=== PATIENT | male | born 1950 | race Caucasian/White ===

== ENCOUNTER → 2017-06-05 11:11 | Outpatient (CLI) | payer MEDICARE, SELFPAY ==
[2017-06-05 14:27] LABS: AST(SGOT) 19 U/L (15-37); Alanine Aminotransfer ALT/SGPT 32 U/L (16-61); Albumin, Serum 3.8 g/dL (3.2-5.0); Alkaline Phosphatase 61 U/L (45-117); Anion Gap 8 (5-15); BUN 23 mg/dL (7-18); BUN/Creat Ratio 23.5 RATIO (10-20); Bilirubin, Direct 0.11 mg/dL (0.00-0.30); Calcium,Total 9.1 mg/dL (8.5-10.1); Chloride 104 mmol/L (98-107); Cholesterol 100 mg/dL (200); Creatinine, Serum 0.98 mg/dL (0.70-1.30); EST Glomerular Filtration Rate 81 mL/min (>60); Est Glom Filt Rate - Afr Amer 98 mL/min (>60); Globulin 3.3 g/dL (2.2-4.2); Glucose 105 mg/dL (74-106); High Density Lipoprotein 40 mg/dL; Potassium 4.3 mmol/L (3.5-5.1); Protein, Total 7.1 g/dL (6.4-8.2); Sodium Level 140 mmol/L (136-145); Triglycerides 105 mg/dL; Very Low Density Lipoprotein 21 mg/dL (5-40)
[2017-06-05 14:39] LABS: Microalbumin,Random Urine 19.5 mg/L (NO RANGE EST.); Microalbumin:Creatinine Ratio 17.3 mg/g CRE (<30 mg/g CRE)
== END ==
PROVIDERS: Family Provider Family Medicine; PCP Family Medicine; Visit Provider Family Medicine
DX: I10 Essential (primary) hypertension (principal); E11.9 Type 2 diabetes mellitus without complications
CPT/HCPCS: 36415; 80048; 80061; 80076; 82043; 82570

== ENCOUNTER → 2017-08-12 15:56 | Outpatient (CLI) | payer MEDICARE, SELFPAY ==
[2017-08-12 17:50] LABS: Absolute Lymphocyte Count 1.86 X10^3/ul (0.83-4.51); Absolute Neutrophil Count 2.6 X10^3/uL (2.0-7.7); Basophil# 0.03 X10^3/uL; Basophil% 0.6 % (0-1); Eosinophil# 0.17 X10^3/uL; Eosinophils% 3.3 % (0-5); Hematocrit 31.2 % (40-54); Hemoglobin 9.5 g/dl (13.0-16.5); Lymphocyte # 1.86 X10^3/ul (4.0); Lymphocyte % 36.6 % (19-41); Mean Corp Hgb Conc 30.4 g/gl (32-36); Mean Corpuscular Hgb 25.8 pg (27.0-32.0); Mean Corpuscular Volume 84.8 fL (80-94); Mean Platelet Vol. 10.1 fl (6.2-12.0); Monocyte# 0.39 X10^3/uL; Monocyte% 7.7 % (0-10); Neutrophil # 2.61 X10^3/uL (2.7-7.7); Neutrophil % 51.4 % (47-70); POSITIVE COUNT NO; POSITIVE DIFFERENTIAL NO; POSITIVE MORPHOLOGY NO; Platelet Count 396 K/mm3 (150-450); RBC Distribution Width SD 49.1 fl (35.1-43.9); Red Blood Count 3.68 M/mm3 (4.6-6.2); White Blood Count 5.1 K/mm3 (4.4-11.0)
[2017-08-12 18:01] LABS: ALB/GLOB Ratio 0.9 RATIO (0.9-2.4); AST(SGOT) 14 U/L (15-37); Alanine Aminotransfer ALT/SGPT 28 U/L (16-61); Albumin, Serum 3.1 g/dL (3.2-5.0); Alkaline Phosphatase 85 U/L (45-117); Anion Gap 8 (5-15); BUN 17 mg/dL (7-18); BUN/Creat Ratio 19.7 RATIO (10-20); Calcium,Total 8.7 mg/dL (8.5-10.1); Chloride 106 mmol/L (98-107); Creatinine, Serum 0.86 mg/dL (0.70-1.30); EST Glomerular Filtration Rate 94 mL/min (>60); Est Glom Filt Rate - Afr Amer 113 mL/min (>60); Globulin 3.6 g/dL (2.2-4.2); Glucose 151 mg/dL (74-106); Potassium 4.1 mmol/L (3.5-5.1); Protein, Total 6.7 g/dL (6.4-8.2); Sodium Level 141 mmol/L (136-145)
== END ==
PROVIDERS: Family Provider Family Medicine; PCP Family Medicine; Visit Provider Family Medicine
DX: I95.1 Orthostatic hypotension (principal)
CPT/HCPCS: 36415; 80053; 85025

== ENCOUNTER → 2017-08-20 11:11 | Outpatient (CLI) | payer MEDICARE, SELFPAY ==
[2017-08-20 12:46] LABS: Hematocrit 33.8 % (40-54); Hemoglobin 10.5 g/dl (13.0-16.5); Mean Corp Hgb Conc 31.1 g/gl (32-36); Mean Corpuscular Hgb 26.1 pg (27.0-32.0); Mean Corpuscular Volume 84.1 fL (80-94); Mean Platelet Vol. 10.3 fl (6.2-12.0); Platelet Count 273 K/mm3 (150-450); RBC Distribution Width CV 16.1 % (11.6-14.6); RBC Distribution Width SD 49.7 fl (35.1-43.9); Red Blood Count 4.02 M/mm3 (4.6-6.2); White Blood Count 4.6 K/mm3 (4.4-11.0)
[2017-08-20 12:49] LABS: Scan Indicated on CBC? Y/N NO
== END ==
PROVIDERS: Family Provider Family Medicine; PCP Family Medicine; Visit Provider Family Medicine
DX: D64.9 Anemia, unspecified (principal)
CPT/HCPCS: 36415; 85027

== ENCOUNTER → 2017-10-02 11:57 | Outpatient (CLI) | payer MEDICARE, SELFPAY ==
[2017-10-02 14:12] LABS: Absolute Lymphocyte Count 1.83 X10^3/ul (0.83-4.51); Absolute Neutrophil Count 3.1 X10^3/uL (2.0-7.7); Basophil# 0.02 X10^3/uL; Basophil% 0.3 % (0-1); Eosinophil# 0.24 X10^3/uL; Eosinophils% 4.2 % (0-5); Hematocrit 39.9 % (40-54); Lymphocyte # 1.83 X10^3/ul (4.0); Lymphocyte % 31.9 % (19-41); Mean Corp Hgb Conc 32.6 g/gl (32-36); Mean Corpuscular Hgb 26.7 pg (27.0-32.0); Mean Corpuscular Volume 82.1 fL (80-94); Mean Platelet Vol. 10.7 fl (6.2-12.0); Monocyte# 0.58 X10^3/uL; Monocyte% 10.1 % (0-10); Neutrophil # 3.05 X10^3/uL (2.7-7.7); Neutrophil % 53.3 % (47-70); Platelet Count 276 K/mm3 (150-450); RBC Distribution Width CV 16.5 % (11.6-14.6); RBC Distribution Width SD 49.6 fl (35.1-43.9); Red Blood Count 4.86 M/mm3 (4.6-6.2); White Blood Count 5.7 K/mm3 (4.4-11.0)
[2017-10-02 14:19] LABS: POSITIVE COUNT NO; POSITIVE DIFFERENTIAL NO; POSITIVE MORPHOLOGY NO
== END ==
PROVIDERS: Family Provider Family Medicine; PCP Family Medicine; Visit Provider Family Medicine
DX: D64.9 Anemia, unspecified (principal)
CPT/HCPCS: 36415; 85025

== ENCOUNTER → 2018-01-22 15:41 | Outpatient (CLI) | payer MEDICARE, SELFPAY ==
[2018-01-22 17:44] LABS: Anion Gap 7 (5-15); BUN 18 mg/dL (7-18); BUN/Creat Ratio 22.3 RATIO (10-20); Calcium,Total 8.9 mg/dL (8.5-10.1); Chloride 108 mmol/L (98-107); Creatinine, Serum 0.81 mg/dL (0.70-1.30); EST Glomerular Filtration Rate 101 mL/min (>60); Est Glom Filt Rate - Afr Amer 122 mL/min (>60); Glucose 105 mg/dL (74-106); Potassium 4.3 mmol/L (3.5-5.1); Sodium Level 141 mmol/L (136-145)
[2018-01-22 17:53] LABS: Absolute Lymphocyte Count 1.87 X10^3/ul (0.83-4.51); Absolute Neutrophil Count 3.5 X10^3/uL (2.0-7.7); Basophil# 0.02 X10^3/uL; Basophil% 0.3 % (0-1); Eosinophil# 0.41 X10^3/uL; Eosinophils% 6.5 % (0-5); Hematocrit 41.5 % (40-54); Hemoglobin 13.5 g/dl (13.0-16.5); Lymphocyte # 1.87 X10^3/ul (4.0); Lymphocyte % 29.5 % (19-41); Mean Corp Hgb Conc 32.5 g/gl (32-36); Mean Corpuscular Volume 86.1 fL (80-94); Mean Platelet Vol. 10.3 fl (6.2-12.0); Monocyte# 0.52 X10^3/uL; Monocyte% 8.2 % (0-10); Neutrophil # 3.51 X10^3/uL (2.7-7.7); Neutrophil % 55.3 % (47-70); Platelet Count 254 K/mm3 (150-450); RBC Distribution Width SD 48.1 fl (35.1-43.9); Red Blood Count 4.82 M/mm3 (4.6-6.2); White Blood Count 6.3 K/mm3 (4.4-11.0)
[2018-01-22 18:03] LABS: POSITIVE COUNT NO; POSITIVE DIFFERENTIAL NO; POSITIVE MORPHOLOGY NO
== END ==
PROVIDERS: Family Provider Family Medicine; PCP Family Medicine; Visit Provider Family Medicine
DX: E11.9 Type 2 diabetes mellitus without complications (principal); D64.9 Anemia, unspecified
CPT/HCPCS: 36415; 80048; 85025

== ENCOUNTER → 2018-06-04 | Outpatient (CLI) | payer MEDICARE, SELFPAY ==
[2018-06-04 14:15] LABS: Absolute Lymphocyte Count 2.11 X10^3/ul (0.83-4.51); Absolute Neutrophil Count 3.6 X10^3/uL (2.0-7.7); Basophil# 0.03 X10^3/uL; Basophil% 0.5 % (0-1); Eosinophil# 0.23 X10^3/uL; Eosinophils% 3.5 % (0-5); Hematocrit 41.9 % (40-54); Hemoglobin 13.9 g/dl (13.0-16.5); Lymphocyte # 2.11 X10^3/ul (4.0); Lymphocyte % 31.8 % (19-41); Mean Corp Hgb Conc 33.2 g/gl (32-36); Mean Corpuscular Hgb 28.4 pg (27.0-32.0); Mean Corpuscular Volume 85.7 fL (80-94); Mean Platelet Vol. 10.4 fl (6.2-12.0); Monocyte# 0.64 X10^3/uL; Monocyte% 9.7 % (0-10); Neutrophil # 3.61 X10^3/uL (2.7-7.7); Neutrophil % 54.3 % (47-70); Platelet Count 272 K/mm3 (150-450); RBC Distribution Width CV 14.6 % (11.6-14.6); RBC Distribution Width SD 45.5 fl (35.1-43.9); Red Blood Count 4.89 M/mm3 (4.6-6.2); White Blood Count 6.6 K/mm3 (4.4-11.0)
[2018-06-04 14:16] LABS: POSITIVE COUNT NO; POSITIVE DIFFERENTIAL NO; POSITIVE MORPHOLOGY NO
[2018-06-04 14:24] LABS: Anion Gap 7 (5-15); BUN 20 mg/dL (7-18); BUN/Creat Ratio 23.6 RATIO (10-20); Calcium,Total 9.3 mg/dL (8.5-10.1); Chloride 109 mmol/L (98-107); Creatinine, Serum 0.85 mg/dL (0.70-1.30); EST Glomerular Filtration Rate 96 mL/min (>60); Est Glom Filt Rate - Afr Amer 116 mL/min (>60); Glucose 77 mg/dL (74-106); Potassium 4.3 mmol/L (3.5-5.1); Sodium Level 141 mmol/L (136-145)
== END | disposition home or self-care (01) ==
LOC: MFPLAB 12:19
PROVIDERS: Family Provider Family Medicine; PCP Family Medicine; Referring Provider Family Medicine; Visit Provider Family Medicine
DX: E11.9 Type 2 diabetes mellitus without complications (principal); D64.9 Anemia, unspecified
CPT/HCPCS: 36415; 80048; 85025

== ENCOUNTER → 2018-07-23 | Outpatient (CLI) | payer MEDICARE, SELFPAY ==
[2018-07-23 12:56] LABS: Microalbumin,Random Urine 72.5 mg/L (NO RANGE EST.); Microalbumin:Creatinine Ratio 38.4 mg/g CRE (<30 mg/g CRE)
[2018-07-23 13:11] LABS: Hemoglobin A1c 6.7 % (4.2-6.3)
[2018-07-23 13:22] LABS: AST(SGOT) 14 U/L (15-37); Alanine Aminotransfer ALT/SGPT 25 U/L (16-61); Albumin, Serum 3.5 g/dL (3.2-5.0); Alkaline Phosphatase 78 U/L (45-117); Anion Gap 4 (5-15); BUN 21 mg/dL (7-18); BUN/Creat Ratio 23.4 RATIO (10-20); Calcium,Total 9.1 mg/dL (8.5-10.1); Chloride 106 mmol/L (98-107); Cholesterol 113 mg/dL (200); EST Glomerular Filtration Rate 89 mL/min (>60); Est Glom Filt Rate - Afr Amer 108 mL/min (>60); Globulin 3.2 g/dL (2.2-4.2); Glucose 111 mg/dL (74-106); High Density Lipoprotein 40 mg/dL; Potassium 4.4 mmol/L (3.5-5.1); Protein, Total 6.7 g/dL (6.4-8.2); Sodium Level 139 mmol/L (136-145); Triglycerides 143 mg/dL; Very Low Density Lipoprotein 29 mg/dL (5-40)
== END | disposition home or self-care (01) ==
PROVIDERS: Family Provider Family Medicine; PCP Family Medicine; Referring Provider Family Medicine; Visit Provider Family Medicine
DX: I10 Essential (primary) hypertension (principal); E11.9 Type 2 diabetes mellitus without complications
CPT/HCPCS: 36415; 80048; 80061; 80076; 82043; 82570; 83036

== ENCOUNTER → 2018-08-23 | Outpatient (CLI) | payer MEDICARE, SELFPAY ==
[2018-08-23 08:53] VITALS: BMI 31.6
--- NOTE | 2018-08-23 09:11 | RAD_ITS ---
STUDY: X-RAY - RIGHT ELBOW REASON FOR EXAM: Male, 68 years old. Bump on posterior elbow TECHNIQUE: 3 view(s) of the elbow. COMPARISON: None. FINDINGS: The bones of the elbow are intact and located. Mineralization is normal. Soft tissues are intact. There is no joint effusion. There is minor ossific enthesopathy at the attachment of the triceps. There are calcifications projecting over the joint seen on the frontal view, not visualized on other projections. RAD/Elbow min 3 Views IMPRESSION: No acute osseous injury. Questionable intra-articular loose bodies. Electronically Signed: Rubio Izaguirre, at 17:56 EDT Tel , Service support ,
== END | disposition home or self-care (01) ==
LOC: HPRAD 09:09
PROVIDERS: Family Provider Family Medicine; PCP Family Medicine; Visit Provider Orthopaedic Surgery
DX: R22.9 Localized swelling, mass and lump, unspecified (principal)
CPT/HCPCS: 73080

== ENCOUNTER → 2019-01-21 10:46 | Outpatient (CLI) | payer MEDICARE, SELFPAY ==
[2018-08-23 08:53] VITALS: BMI 31.6
[2019-01-21 12:32] LABS: Anion Gap 6 (5-15); BUN 18 mg/dL (7-18); BUN/Creat Ratio 21.2 RATIO (10-20); Calcium,Total 9.2 mg/dL (8.5-10.1); Chloride 108 mmol/L (98-107); Creatinine, Serum 0.85 mg/dL (0.70-1.30); EST Glomerular Filtration Rate 95 mL/min (>60); Est Glom Filt Rate - Afr Amer 115 mL/min (>60); Glucose 102 mg/dL (74-106); Potassium 4.1 mmol/L (3.5-5.1); Sodium Level 139 mmol/L (136-145)
== END ==
PROVIDERS: Family Provider Family Medicine; PCP Family Medicine; Referring Provider Family Medicine; Visit Provider Family Medicine
DX: E11.9 Type 2 diabetes mellitus without complications (principal)
CPT/HCPCS: 36415; 80048

== ENCOUNTER → 2019-08-12 | Outpatient (CLI) | payer MEDICARE, SELFPAY ==
[2018-08-23 08:53] VITALS: BMI 31.6
[2019-08-12 15:15] LABS: Hemoglobin A1c 6.7 % (3.8-5.6)
[2019-08-12 15:25] LABS: AST(SGOT) 25 U/L (15-37); Alanine Aminotransfer ALT/SGPT 44 U/L (16-61); Albumin, Serum 3.5 g/dL (3.2-5.0); Alkaline Phosphatase 72 U/L (45-117); Anion Gap 6 (5-15); BUN 16 mg/dL (7-18); BUN/Creat Ratio 18.8 RATIO (10-20); Calcium,Total 9.1 mg/dL (8.5-10.1); Chloride 103 mmol/L (98-107); Cholesterol 105 mg/dL (200); Creatinine, Serum 0.85 mg/dL (0.70-1.30); EST Glomerular Filtration Rate 95 mL/min (>60); Est Glom Filt Rate - Afr Amer 115 mL/min (>60); Globulin 3.6 g/dL (2.2-4.2); Glucose 106 mg/dL (74-106); High Density Lipoprotein 41 mg/dL; Protein, Total 7.1 g/dL (6.4-8.2); Sodium Level 137 mmol/L (136-145); Triglycerides 149 mg/dL; Very Low Density Lipoprotein 30 mg/dL (5-40)
[2019-08-12 15:29] LABS: Microalbumin,Random Urine 72.4 mg/L (NO RANGE EST.); Microalbumin:Creatinine Ratio 76.7 mg/g CRE (<30 mg/g CRE)
== END | disposition home or self-care (01) ==
LOC: MFPLAB 11:15
PROVIDERS: PCP Family Medicine; Visit Provider Family Medicine
DX: I10 Essential (primary) hypertension (principal); E11.9 Type 2 diabetes mellitus without complications
CPT/HCPCS: 36415; 80048; 80061; 80076; 82043; 82570; 83036

== ENCOUNTER → 2020-08-27 15:24 | Outpatient (CLI) | payer MEDICARE, SELFPAY ==
[2018-08-23 08:53] VITALS: BMI 31.6
[2020-08-27 18:34] LABS: AST(SGOT) 18 U/L (15-37); Alanine Aminotransfer ALT/SGPT 31 U/L (16-61); Albumin, Serum 3.4 g/dL (3.2-5.0); Alkaline Phosphatase 79 U/L (45-117); Anion Gap 4 (5-15); BUN 22 mg/dL (7-18); BUN/Creat Ratio 24.3 RATIO (10-20); Bilirubin, Direct 0.06 mg/dL (0.00-0.30); Calcium,Total 9.1 mg/dL (8.5-10.1); Chloride 107 mmol/L (98-107); Cholesterol 129 mg/dL (200); EST Glomerular Filtration Rate 88 mL/min (>60); Est Glom Filt Rate - Afr Amer 106 mL/min (>60); Globulin 3.3 g/dL (2.2-4.2); Glucose 154 mg/dL (74-106); High Density Lipoprotein 41 mg/dL; PSA,Total - Annual Screen 3.56 ng/mL (0.00-4.00); Potassium 4.2 mmol/L (3.5-5.1); Protein, Total 6.7 g/dL (6.4-8.2); Sodium Level 138 mmol/L (136-145); Thyroid Stim Hormone (TSH) 1.97 uIU/mL (0.358-3.74); Triglycerides 273 mg/dL; Very Low Density Lipoprotein 55 mg/dL (5-40)
== END ==
PROVIDERS: PCP Family Medicine; Referring Provider Family Medicine; Visit Provider Family Medicine
DX: E11.9 Type 2 diabetes mellitus without complications (principal); N40.0 Benign prostatic hyperplasia without lower urinary tract symptoms; Z12.5 Encounter for screening for malignant neoplasm of prostate
CPT/HCPCS: 36415; 80048; 80061; 80076; 84153; 84443; G0103

== ENCOUNTER → 2021-08-30 | Outpatient (CLI) | payer MEDICARE, SELFPAY ==
[2021-08-30 15:29] LABS: Hemoglobin A1c 9.1 % (3.8-5.6)
[2021-08-30 15:30] LABS: AST(SGOT) 16 U/L (15-37); Alanine Aminotransfer ALT/SGPT 29 U/L (16-61); Albumin, Serum 3.5 g/dL (3.2-5.0); Alkaline Phosphatase 78 U/L (45-117); Anion Gap 5 (5-15); BUN 19 mg/dL (7-18); BUN/Creat Ratio 21.8 RATIO (10-20); Bilirubin, Direct 0.09 mg/dL (0.00-0.30); Calcium,Total 9.4 mg/dL (8.5-10.1); Chloride 105 mmol/L (98-107); Cholesterol 115 mg/dL (200); Creatinine, Serum 0.87 mg/dL (0.70-1.30); EST Glomerular Filtration Rate 91 mL/min (>60); Est Glom Filt Rate - Afr Amer 110 mL/min (>60); Globulin 3.3 g/dL (2.2-4.2); Glucose 197 mg/dL (74-106); High Density Lipoprotein 43 mg/dL; PSA,Total - Annual Screen 3.31 ng/mL (0.00-4.00); Potassium 4.2 mmol/L (3.5-5.1); Protein, Total 6.8 g/dL (6.4-8.2); Sodium Level 137 mmol/L (136-145); Triglycerides 159 mg/dL; Very Low Density Lipoprotein 32 mg/dL (5-40)
== END | disposition home or self-care (01) ==
LOC: MFPLAB 11:57
PROVIDERS: PCP Family Medicine; Referring Provider Family Medicine; Visit Provider Family Medicine
DX: E11.9 Type 2 diabetes mellitus without complications (principal); N40.0 Benign prostatic hyperplasia without lower urinary tract symptoms; Z12.5 Encounter for screening for malignant neoplasm of prostate
CPT/HCPCS: 36415; 80048; 80061; 80076; 83036; 84153; G0103

== ENCOUNTER → 2021-09-16 | Outpatient (CLI) | payer MEDICARE, SELFPAY ==
--- NOTE | 2021-09-16 13:32 | CT_ITS ---
EXAM: CT CHEST, LUNG CANCER SCREENING WITHOUT INTRAVENOUS CONTRAST CLINICAL INDICATION: TOBACCO USE DISORDER TECHNIQUE: Helically acquired images were obtained of the chest without intravenous contrast using low dose (LDCT) lung cancer screening protocol. This CT exam was performed using one or more of the following dose reduction techniques: automated exposure control, adjustment of the mA and/or kV according to patient size, and/or use of iterative reconstruction technique. This report was created using Hash[employer] report generation technology. COMPARISON: Chest radiograph July 08, 2013 FINDINGS: LUNGS AND PLEURAL SPACES: 9 mm right upper lobe pulmonary nodule noted on image 79. Minor linear atelectasis or scarring at the right lung base. Lungs are otherwise clear. No pleural effusion or thickening. No pneumothorax. HEART: Normal. Heart size is normal. No pericardial effusion. No significant coronary artery calcifications. MEDIASTINUM: Normal. No mediastinal or hilar adenopathy. Esophagus is unremarkable. No hiatal hernia. THYROID: Normal. No thyroid lesions. BONES/JOINTS: Normal. No suspicious lytic or blastic abnormality. VASCULATURE: Normal. Thoracic aorta is non-dilated. LYMPH NODES: Normal. No enlarged lymph nodes. CT/Low Dose CT Lung Screening IMPRESSION: 9 mm right upper lobe pulmonary nodule. ACR Lung CT Screening Reporting T Data System (Lung-RADS) score: 4A - Suspicious. Recommend low-dose CT (LDCT) in 3 months or PET/CT for solid components 8 mm or larger in size. Electronically Signed: Darryl Grey MD at 13:43 EDT Reading Location ID and State: [facility] / [place] Tel , Service support ,
== END | disposition home or self-care (01) ==
LOC: CT 13:32
PROVIDERS: PCP Family Medicine; Referring Provider Family Medicine; Visit Provider Family Medicine
DX: Z87.891 Personal history of nicotine dependence (principal)
CPT/HCPCS: 71271

== ENCOUNTER → 2021-09-25 | Outpatient (CLI) | payer MEDICARE, SELFPAY ==
--- NOTE | 2021-09-25 15:45 | PET_ITS ---
EXAMINATION: FDG PET/CT ? INDICATIONS: 71-year-old male with a history of pulmonary nodularity. ? COMPARISON EXAMINATION: CT of the chest report 09/17/21 ? INDEX LESION SIZE SUV INTERPRETATION Right parotid space 10.7 mm 4.5 May warrant further investigation with diagnostic CT of the neck related to the quantitative uptake. ? TECHNIQUE: Following the intravenous administration of 12.2 mCi of F-18 deoxyglucose via the right antecubital fossa, multiplanar image acquisitions of the neck, chest, abdomen and pelvis to the level of the midthigh, obtained at one-hour post radiopharmaceutical administration contemporaneously interpreted with CT chest report dated 09/17/21 reveal: ? SERUM GLUCOSE LEVEL:? 98? HEIGHT:?? 73? WEIGHT:?? 245 ? FINDINGS: ? HEAD/NECK:? An asymmetric increase in glucose metabolism is identified in the right parotid space. The calculated maximum standard uptake value is 4.5. The maximal axial diameter of the metabolic abnormality is 10.7 mm. ? There is normal physiologic symmetric radiopharmaceutical concentration defined in the visualized cerebral cortical and subcortical structures. ? CHEST:? There is no quantitative scintigraphic evidence of abnormal increased glucose metabolism within the context of the bilateral hemithorax pulmonary parenchyma, right and left hemithorax at the pleural interface, mediastinal structures, and left-right thoracic perihilum. ? Pertinent chest CT findings are as follows: A rounded noncalcified density defined in the right posterobasal lung zone is non-glucose avid. Ground glass changes defined in the right lower posteromedial lung zone demonstrate no evidence of increased glucose metabolism. Calcification is defined in the thoracic aorta consistent with activated leukocytes associated with atherosclerotic plaque formation. Coronary calcification is defined. Subcentimeter axillary soft tissue densities are non-glucose avid. ? ABDOMEN/PELVIS:? Normal physiologic distribution of the radiopharmaceutical is identified in the hepatic (3.3) and splenic parenchyma, both renal units, urinary bladder, and visualized intestinal tract. ? Review of CT of the abdomen and pelvis reveals the following: Multiple surgical clips are identified in the right upper-mid abdominal mesentery. Cholelithiasis is defined. Abdominal and pelvic arterial calcification is observed. Colonic diverticulosis is defined without evidence of diverticulitis. Cyst formation is defined in the bilateral kidneys. The prostate gland is prominent in size. Right and left fat containing inguinal hernias are identified. Bilateral inguinal soft tissue with fatty hilus reveals no evidence of increased glucose metabolism. ? SKELETAL:? There is no evidence of abnormal increased glucose concentration noted on inspection of the appendicular and axial skeletal structures. ? PET/PET/CT Tumor Base -Thigh Init IMPRESSION: 1. NEGATIVE EXAMINATION. THERE IS NO DEFINITIVE QUANTITATIVE SCINTIGRAPHIC EVIDENCE OF VIABLE NEOPLASM. 2. The parenchymal density identified in the right posterobasilar lung zone, right lower lobe demonstrates no evidence of increased glucose concentration. 3. Metabolic, morphologic stability may be ensured in the right hemithorax parenchymal abnormality with repeat PET/CT imaging in 3-6 months. 4. The right parotid space metabolic focus may be further investigated with CT of the neck secondary to the quantitative uptake, if clinically indicated. ? Electronic Signature Georgi To D.O. Accurate Quantification of SUVs for this report are calculated using the exclusive mWaterAN Technology. (U.S. Patent No. [id number], [id number] 983). Standardization and correction of the FDG SUV metric via ACCUQUAN technology allow for vendor non-specific objective quantitative examination comparison and optimization of the sensitivity and specificity of the FDG PET-CT examination. Electronically Signed: Georgi To, at 18:52 EDT ,
== END | disposition home or self-care (01) ==
LOC: ONC 15:27
PROVIDERS: PCP Family Medicine; Referring Provider Family Medicine; Visit Provider Family Medicine
DX: R91.8 Other nonspecific abnormal finding of lung field (principal)
CPT/HCPCS: 78815; A9552

== ENCOUNTER → 2021-10-09 | Outpatient (CLI) | payer MEDICARE, SELFPAY ==
--- NOTE | 2021-10-09 13:47 | CT_ITS ---
STUDY: CT SOFT TISSUE NECK WITH CONTRAST REASON FOR EXAM: Male, 71 years old. Area of concern on throat, abnormal PET scan. Attention to the right parotid space. RADIATION DOSAGE (If Supplied By Facility): CTDIvol = ( 20.47 ) mGy, DLP = ( 623.93 ) mGycm TECHNIQUE: The patient was scanned in a multi-detector CT scanner. High resolution transaxial imaging was performed following intravenous administration of IV 100mL Isovue-300. Sagittal and coronal images were reconstructed. Individualized dose optimization techniques were used for this CT. COMPARISON: None. FINDINGS: There is a 1.1 cm x 0.9 cm x 0.8 cm well-defined enhancing nodule in the body of the right parotid gland. A neoplastic process should be ruled out. Normal bilateral space control supervisor spaces. Normal bilateral parapharyngeal spaces. Normal bilateral carotid spaces. Normal bilateral sublingual and submandibular glands and spaces. Normal visualized nasopharynx. Normal retropharyngeal space. Normal perivertebral space. Normal visualized bilateral faucial tonsils. The visualized tongue, tongue base and oropharynx are normal. The visualized cervical lymph nodes (levels I-) are within normal size limits, and maintain normal morphology. There is no demonstrated solid or cystic mass lesion. There is no abnormal contrast enhancement. Normal epiglottis, bilateral vallecula and hypopharynx. The pre-epiglottic and paraglottic adipose spaces are normal. Normal visualized bilateral piriform sinuses, aryepiglottic folds, vocal cords, and arytenoid-cricoid articulations. Normal subglottic trachea. Normal bilateral lobes of the thyroid gland. Normal visualized pulmonary apices. Normal visualized paranasal sinuses. There is multilevel degenerative changes of the cervical spine. CT/Soft Tissue Neck WITH Contrast IMPRESSION: 1.1 cm x 0.9 cm x 0.8 cm well-defined enhancing nodule in the body of the right parotid gland. A neoplastic process should be ruled out. Electronically Signed: Marco Antonio Kasper MD at 15:04 EDT ,
[2021-10-09 14:16] LABS: CREATININE FINGERSTICK < 0.9 mg/dL (0.70-1.30); EGFR FINGERSTICK > 60.0000 mL/min (>60)
== END | disposition home or self-care (01) ==
LOC: CT 13:46
PROVIDERS: PCP Family Medicine; Referring Provider Family Medicine; Visit Provider Family Medicine
DX: R94.8 Abnormal results of function studies of other organs and systems (principal)
CPT/HCPCS: 70491; Q9967; A4216

== ENCOUNTER → 2022-03-13 | Outpatient (CLI) | payer MEDICARE, SELFPAY ==
--- NOTE | 2022-03-13 12:36 | MRI_ITS ---
STUDY: MRI LEFT SHOULDER REASON FOR EXAM: Male, 71 years old. LEFT SHOULDER PAIN TECHNIQUE: Standardized fat and water weighted pulse sequences were obtained in all 3 orthogonal planes. COMPARISON: None. FINDINGS: There is full-thickness tear of the supraspinatus tendon 1.0 cm proximal to the insertion with retraction of 2.4 cm, series 5 images 12/05 through 02/04. Normal infraspinatus tendon. Normal subscapularis tendon. Normal teres minor tendon. There is moderate muscular atrophy of the supraspinatus muscle. Normal infraspinatus muscle. Normal subscapularis muscle. Normal teres minor muscle. Normal glenohumeral articulation. There is moderate effusion. Normal humeral head and visualized proximal humerus. Normal biceps labral complex. Normal intracapsular long biceps tendon. Normal labrum. Normal capsulo- ligamentous complex. Normal rotator interval. There is hypertrophic osteoarthritis of the acromioclavicular articulation with impingement upon the musculotendinous junction of the supraspinatus muscle. There is a Type II morphology (curved), with a neutral orientation. There is moderate fluid distention of the subacromial bursa, consistent with moderate subacromial-subdeltoid bursitis. Normal visualized coracohumeral and coracoacromial ligaments. Normal quadrilateral space. Normal axillary space. Normal deltoid muscle. Normal trapezius muscle. MRI/Upper Ext Joint Only(Routine) IMPRESSION: Rotator cuff tear of the supraspinatus tendon. Acromioclavicular arthrosis with impingement. Joint effusion. Subacromial subdeltoid bursitis Electronically Signed: Chris Nava MD at 8:17 EST ,
== END | disposition home or self-care (01) ==
LOC: MRI 12:29
PROVIDERS: PCP Family Medicine; Visit Provider Student in an Organized Health Care Education/Training Program
DX: M25.512 Pain in left shoulder (principal)
CPT/HCPCS: 73221

== ENCOUNTER → 2022-09-08 | Outpatient (CLI) | payer MEDICARE, SELFPAY ==
[2022-09-08 14:02] LABS: AST(SGOT) 16 U/L (15-37); Alanine Aminotransfer ALT/SGPT 37 U/L (16-61); Albumin, Serum 3.4 g/dL (3.2-5.0); Alkaline Phosphatase 69 U/L (45-117); Anion Gap 4 (5-15); BUN 18 mg/dL (7-18); BUN/Creat Ratio 20.9 RATIO (10-20); Bilirubin, Direct 0.11 mg/dL (0.00-0.30); Calcium,Total 9.1 mg/dL (8.5-10.1); Chloride 106 mmol/L (98-107); Cholesterol 95 mg/dL (200); Creatinine, Serum 0.86 mg/dL (0.70-1.30); EST Glomerular Filtration Rate 93 mL/min (>60); Est Glom Filt Rate - Afr Amer 112 mL/min (>60); Globulin 3.3 g/dL (2.2-4.2); Glucose 97 mg/dL (74-106); High Density Lipoprotein 53 mg/dL; PSA,Total - Annual Screen 3.77 ng/mL (0.00-4.00); Potassium 4.3 mmol/L (3.5-5.1); Protein, Total 6.7 g/dL (6.4-8.2); Sodium Level 139 mmol/L (136-145); Triglycerides 115 mg/dL; Very Low Density Lipoprotein 23 mg/dL (5-40)
== END | disposition home or self-care (01) ==
LOC: MFPLAB 11:35
PROVIDERS: PCP Family Medicine; Visit Provider Family Medicine
DX: E11.9 Type 2 diabetes mellitus without complications (principal); Z12.5 Encounter for screening for malignant neoplasm of prostate
CPT/HCPCS: 36415; 80048; 80061; 80076; 84153; G0103

== ENCOUNTER → 2022-11-17 | Outpatient (CLI) | payer MEDICARE, SELFPAY ==
--- NOTE | 2022-11-17 07:09 | CT_ITS ---
CT BILATERAL LOWER EXTREMITY WITH 3-D IMAGING CLINICAL INDICATION: LEFT HIP [facility] PROTOCOL TECHNIQUE: Axial CT images of the bilateral lower extremity (including bilateral hips and bilateral knees) was performed without IV contrast material, as per [facility] Protocol. Coronal and sagittal reformats were provided. COMPARISON: No relevant prior comparison study available. FINDINGS: Bones: There is moderate to severe degenerative arthrosis of the hip joints bilaterally with joint space narrowing, marginal osteophyte formation, and tiny foci of subchondral cyst formation in the acetabula. There is mild degenerative arthrosis of the sacroiliac joints bilaterally. There is mild tricompartment degenerative arthrosis of the knees bilaterally. Osseous structures are intact without evidence of fracture or dislocation. No lytic or blastic osseous masses. Soft Tissues: The deep soft tissue structures are unremarkable. The superficial soft tissues are unremarkable without evidence of edema, hematoma, or foreign body. There are atherosclerotic calcifications CT/Extremity Lower without Contra IMPRESSION: Moderate to severe degenerative arthrosis of the hip joints bilaterally. Mild degenerative arthrosis of the sacroiliac joints bilaterally. Mild tricompartment degenerative arthrosis of the knees bilaterally. Electronically Signed: Jorge A Mishra MD at 8:13 EDT ,
== END | disposition home or self-care (01) ==
PROVIDERS: PCP Family Medicine; Referring Provider Student in an Organized Health Care Education/Training Program; Visit Provider Student in an Organized Health Care Education/Training Program
DX: M16.12 Unilateral primary osteoarthritis, left hip (principal); M25.552 Pain in left hip
CPT/HCPCS: 73700

== ENCOUNTER 2022-12-04 13:54 | Observation (INO) | payer MEDICARE, SELFPAY ==
--- NOTE | 2022-11-20 12:15 | RAD_ITS ---
INDICATION: PREOP EXAMINATION/TECHNIQUE: X-RAY - XR Chest 2 Views COMPARISON: Prior study dated: 07/08/2013. FINDINGS: LINES/DEVICES: None. LUNGS: Persistent mild elevation of the right diaphragm. Mild stranding/scarring in the lower lungs. No focal infiltrate is seen. No evidence of pleural effusions. MEDIASTINUM AND CARDIOVASCULAR STRUCTURES: Cardiac silhouette not enlarged. Central airways and mediastinal contour are unremarkable. BONES AND SOFT TISSUES: Mild degenerative changes of the thoracic spine. Surgical clips right upper quadrant. RAD/Chest PA and Lateral IMPRESSION: No radiographic evidence of acute cardiopulmonary disease. Electronically Signed: Abraham Christensen MD at 10:00 EDT ,
[2022-11-20 13:28] LABS: Absolute Lymphocyte Count 1.63 X10^3/uL (0.83-4.51); Absolute Neutrophil Count 4.5 X10^3/uL (2.0-7.7); Basophil# 0.05 X10^3/uL; Basophil% 0.7 % (0-1); Eosinophil# 0.18 X10^3/uL; Eosinophils% 2.6 % (0-5); Hematocrit 40.7 % (40-54); Hemoglobin 13.4 g/dL (13.0-16.5); Lymphocyte # 1.63 X10^3/ul (0.83-4.51); Lymphocyte % 23.6 % (19-41); Mean Corp Hgb Conc 32.9 g/dL (32-36); Mean Corpuscular Volume 91.1 fL (80-94); Mean Platelet Vol. 10.1 fl (6.2-12.0); Monocyte# 0.52 X10^3/uL; Monocyte% 7.5 % (0-10); NRBC Flagged by Analyzer 0 % (0-5); Neutrophil % 65.2 % (47-70); Platelet Count 270 K/mm3 (150-450); RBC Distribution Width CV 13.6 % (11.6-14.6); RBC Distribution Width SD 46.3 fl (35.1-43.9); Red Blood Count 4.47 M/mm3 (4.6-6.2); White Blood Count 6.9 K/mm3 (4.4-11.0)
[2022-11-20 13:58] LABS: Albumin, Serum 3.4 g/dL (3.2-5.0); Anion Gap 0 (5-15); BUN 17 mg/dL (7-18); BUN/Creat Ratio 20.9 RATIO (10-20); Calcium,Total 8.8 mg/dL (8.5-10.1); Chloride 107 mmol/L (98-107); Creatinine, Serum 0.81 mg/dL (0.70-1.30); EST Glomerular Filtration Rate 99 mL/min (>60); Est Glom Filt Rate - Afr Amer 119 mL/min (>60); Glucose 123 mg/dL (74-106); Sodium Level 137 mmol/L (136-145)
[2022-11-20 14:05] LABS: Magnesium 2.2 mg/dL (1.6-2.6)
[2022-11-20 14:38] LABS: Hemoglobin A1c 6.5 % (3.8-5.6)
[2022-12-04] VITALS (17 sets, daily range): BP systolic 90–158; BP diastolic 61–93; PULSE 66–87; RESP 16–18; TEMP 36.4–37.2; O2SAT 92–100; BMI 30.2
[2022-12-04] MEDS: Lactated Ringers 1,000 ML 15 ML IV ×3 (08:29→13:08)
[2022-12-04] MEDS: Magnesium 1 GM over 15 mins IV (08:29)
[2022-12-04] MEDS: Gabapentin 600 MG Tablet PO (08:30)
[2022-12-04] MEDS: Acetaminophen 500 MG Tablet 1000 MG PO ×3 (08:30→22:35)
[2022-12-04 08:35] LABS: Bedside Glucose 169 mg/dL (74-106)
[2022-12-04] MEDS: Cefazolin 2 GM in 0.9% Normal Saline (100mL Bag) 100 ML IV (09:11)
[2022-12-04] MEDS: dexAMETHasone 10 MG/ML Vial IV (09:20)
[2022-12-04] MEDS: TXA 1000mg in NS100 100ml (IVPB at Incision) 660 MG IV (09:30)
[2022-12-04] MEDS: JPS (Morphine 10mg/ml) OPERA.SITE (10:25)
--- NOTE | 2022-12-04 10:40 | FEM_PTH ---
PATIENT: GHISLAINE SYED Jr. LOC: [facility] U#:[id number] AGE/SX: 72/M ROOM: [facility] RE12/04/[address]: Dr. Vinh Ortiz DO : 1950 BED: 1 DIS: 12/05/2022 SPEC #: [id number] RECD: 12/04/22 12:08 STATUS: ANDRY ROXANNA #: [id number] KEKE: 12/04/22 10:[address]: Vinh Ortiz DEPT: SURGICAL PATHOLOGY RECD BY: Felisha Coreas ENTERED: 12/04/22 13:02 SP TYPE: FEM HEAD OTHR DR: Dr. Milana Marie MD Tissues: Femoral region, NOS Procedures: Decalcification bone/plaque Surgery Specimen Level V HEADER OPERATION: ERAS, total hip replacement robotic arm assist PRE-OP DIAGNOSIS: Severe osteoarthritis left hip TISSUE SUBMITTED: Left femoral head MICROSCOPIC DIAGNOSIS Left femoral head, total hip resection: Severe degenerative joint disease. AM:[employer]medios 12/10/2022 MICROSCOPIC DESCRIPTION Slides are reviewed. GROSS DESCRIPTION Received is one container labeled with the patient's name and designated left femoral head. The specimen consists of a christian femoral head with portion of femoral neck. The femoral head measures 5.0 x 5.0 x 5.0 cm and the femoral neck measures 1.5 cm in length. The articular surface displays prominent osteophyte formation, eburnation and bone erosion. No soft tissue is identified. Animal Control Supervisor sections are submitted in one cassette after decalcification. / SJ:[facility] 12/04/2022 TC:5 CPT: 88872, 98437
[2022-12-04] MEDS: TXA 1000mg in NS100 100ml (IVPB at Closure) 660 MG IV (10:50)
--- NOTE | 2022-12-04 11:34 | PCM.OPRPT ---
Report of Operation Date of Procedure: 12/04/22 Description of Surgical Findings:: Preoperative diagnosis: Left hip primary osteoarthritis Postoperative diagnosis: Left hip primary osteoarthritis Procedure: Robotic assisted left total hip arthroplasty Surgeon: Vinh Ortiz DO Machine Deburrer: Karely Schaefer PA-C Anesthesia: General endotracheal Public Health Aides Teacher: Gene Espinoza CRNA Complications: None apparent Drains: None Estimated blood loss: 200 cc Urinary output: none recorded IV fluids: 1000 cc crystalloid Specimens: Left femoral head resection Surgical implants: Mcgregor Accolade two 127 degree neck angle hip stem size # 5, Biolox delta ceramic V 40 femoral head 36 mm outer diameter +0mm neck length, Marisela Trident X3 10 degree polyethylene insert, Trident 2 TriTanium cluster hole acetabular shell 54 mm diameter, 6.5 mm low-profile hex head x25 mm Indications: This is an 72-year-old male seen in the outpatient setting for left hip pain. X-rays revealed severe left hip osteoarthritis. A corticosteroid intra-articular injection was attempted and offered very short-term relief. He failed oral [id number] analgesics including NSAIDs and Tylenol, activity modification. I recommended surgical intervention the form of left total hip arthroplasty. I reviewed the procedure with the patient, its risk, benefits, alternatives. Risks included but were not limited to bleeding, infection, loss of life or limb, risk of anesthesia, neurovascular injury, persistent pain, instability, need for additional surgery, failure of orthopedic hardware, loosening, osteolysis, need for assistive devices long-term, leg length discrepancy. Patient expressed understanding wish to proceed with surgery. Description of procedure: I greeted the patient in same-day surgery holding area the day of surgery. He was identified by name, medical record number, and date of . All questions were answered to patient satisfaction. The operative extremity was marked with a surgical marker. Informed consent was confirmed with the patient. Patient underwent spinal anesthetic in the PACU prior to the procedure. At time of his procedure, patient brought the operative suite and positioned supine initially on a standard operating table. Gentle MAC anesthesia was administered. Patient was then positioned in a lateral decubitus position with the left side up. An axillary roll was placed under the patient's right axilla. The right fibular head was free. We then prepped and draped the left lower extremity in normal, sterile orthopedic fashion. Prior to the procedure, the Barry plan was reviewed and appeared appropriate based on the patient's CT scan and anatomy. We performed a timeout with all parties in attendance in agreement with the side, site, and operation to be performed. No concerns were voiced and would like to proceed. 1 g TXA IV as well as 2 g Ancef was administered prior to the incision by anesthesia staff. 1 g TXA IV was administered at time of closure additionally. I first elected to place our pelvic array with a curvilinear incision over the iliac crest just posterior to the ASIS. I bluntly dissected down the level of the periosteum. I then drilled 3 intracortical pins with excellent cortical purchase. Pelvic array was then assembled and positioned appropriately. I then turned my attention to the hip. A standard posterior lateral incision was made curvilinear over the posterior lateral hip, centered on the tip of the greater trochanter. Full-thickness skin incision was made, approximately 12 cm in length. I sharply dissected down the level of the fascia ashley. Fascia ashley was then incised in line with the incision. I bluntly dissected through the raphae of the gluteus ammy. Femoral checkpoint was placed at this point. We then registered his femoral anatomy prior to dislocating the hip. I then internally rotated the hip. Limited gluteal bursectomy was performed to identify the short external rotators. A Cobra retractor was placed deep to his gluteus medius. Short external rotators were released from their insertion with Bovie cautery and tagged for later repair with #2 Ethibond suture. This identified the underlying capsule. A hockey-stick shaped capsulotomy was made over the femoral neck carried posteriorly to the acetabular labrum. Labrum was released and the hip was dislocated. I then marked a standard femoral neck cut 1 fingerbreadth above the lesser trochanter. Sagittal saw was used to carefully cut the femoral neck. Femoral head was removed and examined and appeared benign. It was sent to pathology per hospital policy. I then turned my attention to the acetabulum. Cobra retractors were placed anterior and posteriorly. Self-retaining retractor was placed superiorly. Acetabular labrum was excised with a long handled knife. Acetabular pulvinar was excised with Bovie cautery. Hemostasis was excellent at this point. I then registered the acetabulum with the Spoonfed robot successfully. I then brought in the Barry robot with the acetabular reaming arm to a size 54. This was reamed and the planned position to the planned depth. Reamer was then removed. There was excellent bleeding bone at the base and excellent remaining anterior posterior no of the acetabulum. 54 mm acetabular component was selected for and attached to the business case analyst arm of the robot. I placed the acetabular component near planned position before attaching to the robot. The robot then held the shell in position while I impacted it to an appropriate depth. The acetabular cup was then removed from the robotic arm. It had excellent rim fit. I then selected a 10 degree posterior lipped liner and impacted this per territory sales consultant recommendations. I then turned my attention to the femur. Box chisel was then utilized to gain access to the femoral canal. Canal finder was placed. Sequential broaches were used and press-fit manner. A final size 5 achieved excellent vertical and rotational stability. We then trialed with a 127 degree hip stem as templated. A +0 mm neck length was trialed.. The trial neck achieved greater stability as well as allowed for mild lengthening of the limb, which was desired given his contralateral hip osteoarthritis. Trials were then removed. We copiously irrigated the wound with normal saline solution.. A size 5 stem was then impacted with excellent fixation. Final head was then impacted over clean, dry Patino taper neck. Final reduction was performed. A posterior capsular repair was performed with #2 Ethibond suture and bone tunnels, as well as the short external rotator repair. Femoral checkpoint was removed. Pelvic array pins were removed. A 3-minute dilute Betadine soak was performed in the hip incision. Wound was then copiously irrigated with normal saline solution. Pelvic array incision was irrigated thoroughly with normal saline solution. IT band was closed watertight with #1 strata fix suture. Deeper fascial layers were closed with 0 Vicryl suture in interrupted fashion. Subcutaneous layers were reapproximated with 2-0 Vicryl suture and skin reapproximated with running subcuticular 3-0 strata fix and skin glue. Pelvic array incision was closed with buried 2-0 Vicryl suture and skin glue.. A silver dressing was applied. Patient tolerated procedure well without complication. He was positioned back in the supine position on his hospital bed. He was transferred to PACU in stable condition. A pillow was placed between the patient's leg to be present while he is in bed. Need for skilled retail administrative assistant: Karely Schaefer PA-C was critical to the outcome of the case. During the course of the procedure the physician retail administrative assistant played a vital role. Her intimate knowledge of my steps in the procedure aided in safe and expedient completion of the procedure. The PA played a vital role in positioning particularly in obtaining the appropriate positioning. The PA was also vital in the retraction of soft tissues during the exposure and protecting vital structures. The PA was also vital and protecting soft tissues during times of bony cuts. She also played a vital role in closure with my direct supervision. The PA was also important during reduction and dislocation of the joint and trials intraoperatively. Post Operative Plan: Patient will be placed in observation overnight given his multiple comorbidities and advanced age. Plan for discharge to home likely tomorrow. Weightbearing: Weightbearing as tolerated left lower extremity, posterior hip precautions. Pillows between legs while in bed Antibiotics: Ancef 1 g every 8 hours x 3 doses DVT Prophylaxis: Aspirin 81 mg twice daily to start this evening Muñiz: None Dressing: Maintain silver dressing x 5 days X-Rays: PACU x-rays were reviewed demonstrated well-positioned left total hip arthroplasty implant. Follow-up 2-week x-rays in the office. Follow-up: 2 weeks in my office as scheduled
--- NOTE | 2022-12-04 11:44 | SUR.PHASEI ---
PT HAVING INTERMITTENT ROUNDS OF VTACH APPROX 6-8 BEATS. PT AWAKE AND TALKING, NO CHEST PAIN/ SOB. DR RAMOS CALLED, WILL BE OVER TO ASSESS PT. CONT PLAN OF CARE
--- NOTE | 2022-12-04 11:55 | RAD_ITS ---
INDICATION: Post Op EXAMINATION/TECHNIQUE: X-RAY - XR Hip Unilateral with Pelvis when performed; 2-3 Views COMPARISON: Second 2022 FINDINGS: PELVIC BONES: No displaced fracture, destructive or sclerotic lesions. Note that overlapping bowel shadows may however obscure fine detail. Sacroiliac joints are unremarkable. No widening of the pubic symphysis. HIPS: There are degenerative changes of the right hip. There is a left total hip arthroplasty in place that is grossly anatomic in alignment. SOFT TISSUES: There are postsurgical changes within the soft tissues of the left proximal thigh. RAD/Hip Min 2 Views (Portable) IMPRESSION: Left total hip arthroplasty, grossly anatomic in alignment. Electronically Signed: Lindsay Ceballos MD at 13:23 EDT ,
--- NOTE | 2022-12-04 12:34 | EKG12_ITS ---
Test Reason : PVCS Blood Pressure : / mmHG Vent. Rate : 076 BPM Atrial Rate : 076 BPM P-R Int : 262 ms QRS Dur : 096 ms QT Int : 396 ms P-R-T Axes : 048 -29 027 degrees QTc Int : 445 ms Sinus rhythm with 1st degree A-V block with occasional Premature ventricular complexes Inferior infarct (cited on or before 29-DEC-2001) Abnormal ECG When compared with ECG of 08-JUL-2013 12:17, Premature ventricular complexes are now Present QT has lengthened Confirmed by YAMILETH ARREOLA, IGNACIA ([id number]), editorial specialist KIMBERLEE RIDDLE ([id number]) on 12/12/2022 10:12:05 AM Referred By: Vinh Ortiz Confirmed By:IGNACIA CARSON MD
--- NOTE | 2022-12-04 12:34 | SUR.PHASEI ---
PER DR RAMOS, OBTAIN EKG. CALLED RESP FOR EKG
[2022-12-04] MEDS: Insulin Lispro 100 UNIT/ML INSULN.PEN SC (13:35)
[2022-12-04 13:51] LABS: Bedside Glucose 189 mg/dL (74-106)
--- NOTE | 2022-12-04 18:50 | PCM.PN.HOSP ---
Reason for Visit Reason for Visit: Diagnoses Encounter for other preprocedural examination (12/04/22) Subjective Subjective Patient was seen and examined at the request of orthopedic surgery for medical management, he underwent a left robotic total hip replacement today, during that time patient was in PACU, he had several episodes of nonsustained V. tach-the longest of which was 8 beats long, patient was asymptomatic with these episodes of V. tach. I examined the patient when he got to PCU for postop care, I also talked with the patient's who was in the room at the time of my examination. Patient denies any chest pain. Patient follows up regularly with a stonemason (Dr. Cruz), I was nellie enough to obtain information from him by phone this afternoon. Patient underwent a heart catheterization approximately a year ago at [facility], he had an 80% blockage of a diagonal branch of a coronary artery, it was not felt this could be stented and the patient was treated with medical treatment. Patient also had an echocardiogram 2 months ago which showed a normal EF, no valvular heart disease, but he did have an ascending aortic aneurysm which was approximately 4.8 cm in diameter. I had a lengthy discussion with the patient's stonemason by phone today, he recommended the patient come by as an outpatient in the next 2 weeks to have a Holter monitor applied, the plan is for him to have either a 30-day monitor or a 14-day monitor. Objective Data Objective Data Vital Signs: Vital Signs Temp Pulse Resp BP Pulse Ox O2 Del Method O2 Flow Rate 97.5 F L 84 17 129/83 H 94 Room Air 4 12/04/22 18:05 12/04/22 18:05 12/04/22 18:05 12/04/22 18:05 12/04/22 18:05 12/04/22 18:05 12/04/22 13:15 Oxygen Flow Rate (L/min) 4 Oxygen Delivery Method Room Air Weight: 104 kg Body Mass Index (BMI) 30.2 Intake & Output: Intake and Output for Last 24 Hours 12/02/22 12/03/22 12/04/22 23:59 23:59 23:59 Intake Total 2432 / 2432 Balance 2432 / 2432 Lab / Micro Data 11/20/22 12:10 11/20/22 12:10 Labs: Laboratory Results - last 24 hr 12/04/22 08:16: POC Glucose 169 H 12/04/22 13:13: POC Glucose 189 H Micro: Microbiology 11/20/22 12:10 Swab (Method) Nasal Screen MRSA/MSSA - Final Radiography Diagnostic Testing: Radiology Impression Hip X-Ray 12/04/22 11:55 IMPRESSION: Left total hip arthroplasty, grossly anatomic in alignment. Electronically Signed: Lindsay Ceballos MD at 13:23 EDT , Physical Exam Const alert, oriented x3, no apparent distress, average body habitus and healthy appearing General Appearance: cooperative, well kempt and well developed Orientation / Consciousness: awake, oriented to person, oriented to place and oriented to time HEENT normocephalic, head/scalp atraumatic and moist oral mucous membranes Eyes PERRL, EOMs intact bilaterally and conjunctivae normal Neck supple, no JVD, thyroid normal and no carotid bruits General: trachea midline Resp normal respiratory effort, no retractions, no use of accessory muscles and clear to auscultation bilaterally Auscultation: Negative for rales, rhonchi or wheezes Cardio regular rate, regular rhythm, S1 normal heart sound, S2 normal heart sound, no murmurs, no rub and no gallops GI normal to inspection, nondistended, normoactive bowel sounds, soft to palpation, non-tender and non-distended Extremity no clubbing, cyanosis or edema Skin no rashes or lesions noted Neuro oriented x3, CN's II-XII intact bilaterally, no focal motor deficits and no sensory deficits noted Sensorium / Orientation: awake, alert, oriented to person, oriented to place and oriented to time Speech: speech normal Psych affect normal Assessment & Plan Assessment/Plan (1) Diabetes mellitus: PLAN: Plan 1. Type 2 diabetes-patient takes oral medication for his diabetes (metformin)- I do not feel we need to monitor blood sugars, it is probable he will be discharged home tomorrow. Patient will remain on his metformin #2 coronary artery disease-this appears stable at this time, patient is on a statin and he will be taking aspirin for VTE prophylaxis when he leaves the hospital, I stressed that he should take a baby aspirin daily when he stops the prophylactic dose of aspirin for his VTE prevention #3 nonsustained V. tach-it is unknown what caused this today, patient will be monitored on telemetry, he will need to follow-up with his stonemason as an outpatient for application of either a 14-day Holter or 30-day Holter. Patient knows he may need a possible loop recorder. I discussed this with his and his daughter by phone today. #4 left hip osteoarthritis-postop day 0 robotic assisted left total hip arthroplasty-patient will be seen by PT and OT, he states he would like to be discharged home tomorrow if possible #5 hyperlipidemia-patient is on a statin Total clinical time spent by myself addressing the patient's medical issues, reviewing all of his data, and collaborating with patient's care team: 50-minutes Charges/Coding Visit Charges Inpatient E&M: [id number] [facility] Hosp L3
[2022-12-04] MEDS: Cefazolin 1 GM/50 ML BAG IV (19:12)
[2022-12-04] MEDS: Atorvastatin Calcium 40 MG Tablet PO (22:35)
[2022-12-04] MEDS: Aspirin 81 MG TAB.CHEW PO (22:35)
[2022-12-04] MEDS: amLODIPine 2.5 MG Tablet PO (22:36)
[2022-12-05] MEDS: oxyCODONE 5 MG Tablet PO ×2 (00:11→00:54)
[2022-12-05] MEDS: Cefazolin 1 GM/50 ML BAG IV (00:56)
[2022-12-05 03:45] VITALS: BP 135/76; PULSE 78; RESP 18; TEMP 36.6; O2SAT 97
[2022-12-05 05:48] LABS: Hematocrit 34.5 % (40-54); Hemoglobin 11.2 g/dL (13.0-16.5); Mean Corp Hgb Conc 32.5 g/dL (32-36); Mean Corpuscular Hgb 29.3 pg (27.0-32.0); Mean Corpuscular Volume 90.3 fL (80-94); Mean Platelet Vol. 10.2 fl (6.2-12.0); Platelet Count 237 K/mm3 (150-450); RBC Distribution Width CV 13.2 % (11.6-14.6); Red Blood Count 3.82 M/mm3 (4.6-6.2); White Blood Count 12.2 K/mm3 (4.4-11.0)
[2022-12-05 05:51] VITALS: BP 122/71; PULSE 65; RESP 18; TEMP 36.6; O2SAT 97
[2022-12-05] MEDS: Acetaminophen 500 MG Tablet 1000 MG PO (05:54)
[2022-12-05] MEDS: Lisinopril 40 MG Tablet PO (05:57)
[2022-12-05 06:25] LABS: Anion Gap 6 (5-15); BUN 19 mg/dL (7-18); BUN/Creat Ratio 22.1 RATIO (10-20); Calcium,Total 8.6 mg/dL (8.5-10.1); Chloride 106 mmol/L (98-107); Creatinine, Serum 0.86 mg/dL (0.70-1.30); EST Glomerular Filtration Rate 93 mL/min (>60); Est Glom Filt Rate - Afr Amer 112 mL/min (>60); Estimated Creatinine Clearance 86.46 ml/min; Glucose 181 mg/dL (74-106); Potassium 4.1 mmol/L (3.5-5.1); Sodium Level 139 mmol/L (136-145)
--- NOTE | 2022-12-05 07:44 | PN.ORTHO_ITS ---
Subjective Subjective Patient seen and examined. Tolerating oral intake without nausea or vomiting. Denies any fevers or chills, chest pain or shortness of breath. Denies palpitations. Denies any new complaints. Pain controlled with current pain regimen. Up multiple times with therapy and nursing staff. Patient required straight catheterization x1, now voiding without difficulty. Patient had nonsustained run of ventricular tachycardia in the PACU yesterday requiring cardiac telemetry. Patient denies any symptoms at this time. Objective Data Objective Data Vital Signs: Vital Signs Temp Pulse Resp BP Pulse Ox O2 Del Method O2 Flow Rate 97.8 F 65 18 122/71 H 97 Room Air 4 12/05/22 05:51 12/05/22 05:51 12/05/22 05:51 12/05/22 05:51 12/05/22 05:51 12/05/22 05:51 12/04/22 13:15 Oxygen Flow Rate (L/min) 4 Oxygen Delivery Method Room Air Weight: 229 lb 4.492 oz Body Mass Index (BMI) 30.2 Intake & Output: Intake and Output for Last 24 Hours 12/03/22 12/04/22 12/05/22 23:59 23:59 23:59 Intake Total 2642.5 / 2642.5 530 / 530 Output Total 800 / 800 Balance 1842.5 / 1842.5 530 / 530 Lab / Micro Data 12/05/22 04:45 12/05/22 04:45 Labs: Laboratory Results - last 24 hr 12/04/22 08:16: POC Glucose 169 H 12/04/22 13:13: POC Glucose 189 H 12/05/22 04:45: WBC 12.2 H, RBC 3.82 L, Hgb 11.2 L, Hct 34.5 L, MCV 90.3, MCH 29.3, MCHC 32.5, RDW Std Deviation 43.0, RDW Coeff of Jason 13.2, Plt Count 237, MPV 10.2, Sodium 139, Potassium 4.1, Chloride 106, Carbon Dioxide 27.0, Anion Gap 6, BUN 19 H, Creatinine 0.86, Estim Creat Clear Calc 86.46, Est GFR (MDRD) Af Amer 112, Est GFR (MDRD) Non-Af 93, BUN/Creatinine Ratio 22.1 H, Glucose 181 H, Calcium 8.6 Micro: Microbiology 11/20/22 12:10 Swab (Method) Nasal Screen MRSA/MSSA - Final Radiography Diagnostic Testing: Radiology Impression Hip X-Ray 12/04/22 11:55 IMPRESSION: Left total hip arthroplasty, grossly anatomic in alignment. Electronically Signed: Lindsay Ceballos MD at 13:23 EDT Reading Location ID and State: [facility] / [place] Tel , Service support , Physical Exam Narrative General - A&Ox3, NAD. VSS/AF Left lower extremity -incisional dressing C/D/I. SILT Sural, Saphenous, SPN, D PN, Tibial N. distributions. DP, PT 2+. BCR. DF, PF, EHL /5. No calf TTP. Assessment & Plan Assessment/Plan (1) Presence of left hip implant: PLAN: POD#1 s/p left robotic arm assisted total hip arthroplasty - Pain control - Medicine following for medical management - PT/OT-posterior hip precautions, weightbearing as tolerated left lower extremity - DVT PPX -Multimodal with aspirin, SCDs, SUZI hose and early mobilization - Case management - D/C planning Anticipate discharge home today if therapy goals are met and cleared from medical standpoint.
[2022-12-05] MEDS: Aspirin 81 MG TAB.CHEW PO (07:51)
[2022-12-05] MEDS: Famotidine 20 MG Tablet PO (07:52)
[2022-12-05 09:37] VITALS: BP 113/72; PULSE 69; RESP 17; TEMP 36.9; O2SAT 96
[2022-12-05 10:13] VITALS: O2SAT 96
--- NOTE | 2022-12-05 10:30 | CASEMGMT ---
EDILIA JULIAN Face to Face with patient for initial transition planning/care coordination assessment. RN ELIEL introduced self and role at [facility]. Patient sitting in chair, alert and oriented, at bedside. Patient willing to participate in assessment and is able to answer all questions appropriately. Care providers, pharmacy, and demographics verified. Patient wishes to discharge home and has outpatient therapy setup with [facility]. Patient states he has no further needs or concerns at this time. CM to follow for discharge planning needs that may arise. PCP: Cynthia Specialists: acrl Ortiz; Zaki agricultural services director Preferred Pharmacy: [facility]; [facility] retail Insurance: [employer] Prescription Benefit: yes Living Will/HPOA: yes, Yasmine LNOK: Living Arrangements: Patient lives with in a single story home with 3 steps and railing to enter the home. Patient is indepnedent at home. Transportation: DME/HHC: Patient has shower chair, raised toilet, cane, walker, and grab bars. Patient is scheduled for outpatient therapy at [facility] starting Thursday. No previous HHC or SNF Disposition Plan: Patient to discharge home with family support and follow-up plans in place. Fanta MCCONNELL, RN, CM
--- NOTE | 2022-12-05 11:16 | PCM.DC.SUM ---
Providers Date of Admission: 12/04/22 Primary Care Physician: Dr. Milana Marie MD Consultations 12/04/22 11:30 Consult: Hospitalist Routine Consulting Provider: Nicholas Dunham Reason for Consult: S/p L Total hip, medical management EMERGENT Consult: No MD Notified: Yes Date Notified: 12/04/22 Time Notified: 11:32 Method of Notification: Text Reason For Visit: LEFT TOTAL HIP ARTHROPLASTY Diagnosis Discharge Diagnosis (1) Presence of left hip implant: Status: Acute Code(s): Z96.642 - Presence of left artificial hip joint Plan: POD#1 s/p left robotic arm assisted total hip arthroplasty - Pain control - Medicine following for medical management - PT/OT-posterior hip precautions, weightbearing as tolerated left lower extremity - DVT PPX -Multimodal with aspirin, SCDs, SUZI hose and early mobilization - Case management - D/C planning Anticipate discharge home today if therapy goals are met and cleared from medical standpoint. Medications at Discharge Home Medications amlodipine 2.5 mg tablet 2.5 mg PO QHS #90 tabs 08/23/18 atorvastatin 20 mg tablet 40 mg PO QHS #90 tabs 08/23/18 lisinopril 20 mg tablet 40 mg PO DAILY #180 tabs 08/23/18 magnesium hydroxide 400 mg (170 mg magnesium) chewable tablet 400 mg PO BID 08/23/18 metformin 1,000 mg tablet 1,000 mg PO QHS #90 tabs 08/23/18 acetaminophen 650 mg tablet,extended release 650 mg PO Q12H PRN pain 11/20/22 aspirin 81 mg chewable tablet 81 mg PO BID 30 days #60 tabs 12/05/22 famotidine 20 mg tablet 20 mg PO DAILY 30 days #30 tabs 12/05/22 meloxicam 7.5 mg tablet 7.5 mg PO BID 30 days #60 tabs 12/05/22 oxycodone 5 mg tablet 5 - 10 mg (1 - 2 x 5 mg) PO Q4H PRN PRN Pain Score 4-10 7 days #42 tabs 12/05/22 sennosides 8.6 mg-docusate sodium 50 mg tablet (Stool Softener-Stimulant Laxative) 2 tab PO BID 7 days #28 tabs 12/05/22 Hospital Course Summary of Care Provided Minutes Spent on Discharge: 20 Hospital Course: Patient underwent uncomplicated L HETAL 12/04/22. In PACU, nonsustained run of V Tach was noted. Patient was assymptomatic. He was placed in Tele Obs. Internal medicine evaluated the patient. No intervention was needed. He did well overnight. He worked well with PT/OT. He is to follow up with his assistant merchandise manager upon dc. He will continue outpatient PT. Physical Exam Narrative General - A&Ox3, NAD. VSS/AF Left lower extremity -incisional dressing C/D/I. SILT Sural, Saphenous, SPN, DPN, Tibial N. distributions. DP, PT 2+. BCR. DF, PF, EHL 5/5. No calf TTP. Weight / BMI Weight Weight: 229 lb 4.492 oz Body Mass Index (BMI) 30.2 ABG / Lab / Microbiology Data 12/05/22 04:45 12/05/22 04:45 Laboratory: Laboratory Results - last 24 hr 12/04/22 13:13: POC Glucose 189 H 12/05/22 04:45: WBC 12.2 H, RBC 3.82 L, Hgb 11.2 L, Hct 34.5 L, MCV 90.3, MCH 29.3, MCHC 32.5, RDW Std Deviation 43.0, RDW Coeff of Jason 13.2, Plt Count 237, MPV 10.2, Sodium 139, Potassium 4.1, Chloride 106, Carbon Dioxide 27.0, Anion Gap 6, BUN 19 H, Creatinine 0.86, Estim Creat Clear Calc 86.46, Est GFR (MDRD) Af Amer 112, Est GFR (MDRD) Non-Af 93, BUN/Creatinine Ratio 22.1 H, Glucose 181 H, Calcium 8.6 Microbiology: Microbiology 11/20/22 12:10 Swab (Method) Nasal Screen MRSA/MSSA - Final Radiography Diagnostic Testing: Radiology Impression Hip X-Ray 12/04/22 11:55 IMPRESSION: Left total hip arthroplasty, grossly anatomic in alignment. Electronically Signed: Lindsay Ceballos MD at 13:23 EDT , Meaningful Use Info Meaningful Use Diagnoses (Choose all that apply): None applicable Discharge Plan Admission Admit Date/Time: 12/04/22 13:54 Primary Reason for Your Visit: Left total hip arthroplasty Attending Provider: Vinh Ortiz Primary Care Provider: Milana Marie Consulting Providers: Nicholas Dunham Instructions Additional Instructions / Restrictions: Follow preprinted instructions from your surgeons office Follow up with your assistant merchandise manager for further evaluation of arrythmia Discharge Orders/Prescriptions Prescriptions: New sennosides-docusate sodium [Stool Softener-Stimulant Laxat] 8.6-50 mg Tablet 2 tab PO BID 7 Days Qty: 28 0RF meloxicam 7.5 mg Tablet 7.5 mg PO BID 30 Days Qty: 60 0RF famotidine 20 mg Tablet 20 mg PO DAILY 30 Days Qty: 30 0RF aspirin 81 mg Tablet,Chewable 81 mg PO BID 30 Days Qty: 60 0RF oxycodone 5 mg Tablet 5 - 10 mg PO Q4H PRN PRN (Reason: Pain Score 4-10) 7 Days Qty: 42 0RF Continued metformin 1,000 mg tablet 1,000 mg PO QHS Qty: 90 Patient Comments: TAKE 1 TABLET BY MOUTH AT BEDTIME lisinopril 20 mg tablet 40 mg PO DAILY Qty: 180 Patient Comments: TAKE 2 TABLETS BY MOUTH ONCE DAILY atorvastatin 20 mg tablet 40 mg PO QHS Qty: 90 Patient Comments: TAKE 1 TABLET BY MOUTH AT BEDTIME amlodipine 2.5 mg tablet 2.5 mg PO QHS Qty: 90 magnesium hydroxide 400 mg (170 mg magnesium) tablet,chewable 400 mg PO BID acetaminophen 650 mg tablet extended release 650 mg PO Q12H PRN (Reason: pain) Discontinued naproxen sodium [Aleve] 220 mg capsule 440 mg PO DAILY PRN (Reason: pain) Referrals / Follow Up: [facility], Cardiology [Other] - Within 2 Weeks Milana Marie MD [Primary Care Provider] - Vinh Ortiz DO [Med Staff - Active Staff] - Disposition Disposition (needs filled in before D/C Order can be placed): Home, Self Care
[2022-12-05 11:39] VITALS: BP 121/70; PULSE 73; RESP 15; TEMP 36.9; O2SAT 98
--- NOTE | 2022-12-05 12:02 | PN.HOSP_ITS ---
Reason for Visit Reason for Visit: Diagnoses Type 2 diabetes mellitus without complications (12/04/22) Encounter for other preprocedural examination (12/04/22) Presence of left artificial hip joint (12/04/22) Subjective Subjective Patient examined today, I reviewed his telemetry strips, he has had 1 3 beat run of V. tach since yesterday and several ventricular couplets and isolated PVCs. Patient was instructed yesterday that he would need to follow-up with his donations attendant to obtain a Holter monitor as an outpatient. I also discussed this with his daughter by phone and his who was present in the room at the time my examination. I talked briefly with Dr. Ortiz and told him it was my opinion the patient was medically stable for discharge. Objective Data Objective Data Vital Signs: Vital Signs Temp Pulse Resp BP Pulse Ox O2 Del Method O2 Flow Rate 98.4 F 73 15 121/70 H 98 Room Air 4 12/05/22 11:39 12/05/22 11:39 12/05/22 11:39 12/05/22 11:39 12/05/22 11:39 12/05/22 11:39 12/04/22 13:15 Oxygen Flow Rate (L/min) 4 Oxygen Delivery Method Room Air Weight: 104 kg Body Mass Index (BMI) 30.2 Intake & Output: Intake and Output for Last 24 Hours 12/03/22 12/04/22 12/05/22 23:59 23:59 23:59 Intake Total 2642.5 / 2642.5 530 / 530 Output Total 800 / 800 200 / 200 Balance 1842.5 / 1842.5 330 / 330 Lab / Micro Data 12/05/22 04:45 12/05/22 04:45 Labs: Laboratory Results - last 24 hr 12/04/22 13:13: POC Glucose 189 H 12/05/22 04:45: WBC 12.2 H, RBC 3.82 L, Hgb 11.2 L, Hct 34.5 L, MCV 90.3, MCH 29.3, MCHC 32.5, RDW Std Deviation 43.0, RDW Coeff of Jason 13.2, Plt Count 237, M PV 10.2, Sodium 139, Potassium 4.1, Chloride 106, Carbon Dioxide 27.0, Anion Gap 6, BUN 19 H, Creatinine 0.86, Estim Creat Clear Calc 86.46, Est GFR (MDRD) Af Amer 112, Est GFR (MDRD) Non-Af 93, BUN/Creatinine Ratio 22.1 H, Glucose 181 H, Calcium 8.6 Micro: Microbiology 11/20/22 12:10 Swab (Method) Nasal Screen MRSA/MSSA - Final Radiography Diagnostic Testing: Radiology Impression Hip X-Ray 12/04/22 11:55 IMPRESSION: Left total hip arthroplasty, grossly anatomic in alignment. Electronically Signed: Lindsay Ceballos MD at 13:23 EDT , Physical Exam Narrative alert, oriented x3, no apparent distress, average body habitus and healthy appearing General Appearance: cooperative, well kempt and well developed Orientation / Consciousness: awake, oriented to person, oriented to place and oriented to time HEENT normocephalic, head/scalp atraumatic and moist oral mucous membranes Eyes PERRL, EOMs intact bilaterally and conjunctivae normal Neck supple, no JVD, thyroid normal and no carotid bruits General: trachea midline Resp normal respiratory effort, no retractions, no use of accessory muscles and clear to auscultation bilaterally Auscultation: Negative for rales, rhonchi or wheezes Cardio regular rate, regular rhythm, S1 normal heart sound, S2 normal heart sound, no murmurs, no rub and no gallops GI normal to inspection, nondistended, normoactive bowel sounds, soft to palpation, non-tender and non-distended Extremity no clubbing, cyanosis or edema Skin no rashes or lesions noted Neuro oriented x3, CN's II-XII intact bilaterally, no focal motor deficits and no sensory deficits noted Sensorium / Orientation: awake, alert, oriented to person, oriented to place and oriented to time Speech: speech normal Psych affect normal Assessment & Plan Assessment/Plan (1) Diabetes mellitus: PLAN: Plan 1. Type 2 diabetes-patient will remain on his present home medication for d iabetes at the time of discharge #2 coronary artery disease-this appears stable at this time, patient is on a statin and he will be taking aspirin for VTE prophylaxis when he leaves the hospital, I stressed that he should take a baby aspirin daily when he stops the prophylactic dose of aspirin for his VTE prevention #3 nonsustained V. tach-it is unknown what caused this today, patient will be mo nitored on telemetry, he will need to follow-up with his donations attendant as an outpatient for application of either a 14-day Holter or 30-day Holter. Patient knows he may need a possible loop recorder. I discussed this with his and his daughter by phone. #4 left hip osteoarthritis-postop day 1 robotic assisted left total hip arthroplasty-patient will be seen by PT and OT #5 hyperlipidemia-patient is on a statin Total clinical time spent by myself addressing the patient's medical issues, r eviewing all of his data, and collaborating with patient's care team: 25-minutes Charges/Coding Visit Charges Inpatient E&M: [id number] Subs Hosp L2
== END 2022-12-05 11:53 | disposition home or self-care (01) ==
LOC: SDC 14:29 → PCU 18:03
PROVIDERS: Anesthesiology; Admitting Provider Student in an Organized Health Care Education/Training Program; PCP Family Medicine; Referring Provider Student in an Organized Health Care Education/Training Program; Visit Provider Student in an Organized Health Care Education/Training Program
PROC: 8E0Y0CZ Robotic Assisted Procedure of Lower Extremity, Open Approach (ICD-10-PCS; CPT 27130; principal; 2022-12-04 10:10)
DX: M16.12 Unilateral primary osteoarthritis, left hip (principal); I47.20 Ventricular tachycardia, unspecified; E11.9 Type 2 diabetes mellitus without complications; Z79.899 Other long term (current) drug therapy; Z79.84 Long term (current) use of oral hypoglycemic drugs; E78.00 Pure hypercholesterolemia, unspecified; I10 Essential (primary) hypertension; F17.210 Nicotine dependence, cigarettes, uncomplicated; Z79.82 Long term (current) use of aspirin; I25.10 Atherosclerotic heart disease of native coronary artery without angina pectoris; R94.31 Abnormal electrocardiogram [ECG] [EKG]; I49.3 Ventricular premature depolarization
CPT/HCPCS: 27130; S2900; 01214; 36415; 71046; 73502; 80048; 82040; 82962; 83036; 83735; 85025; 85027; 87081; 88307; 88311; 93005; 94668; 96365; 96366; 97161; 97166; 99221; 99406; C1776; J7120; G0378; J2405; J3475

== ENCOUNTER → 2023-03-17 | Outpatient (CLI) | payer MEDICARE, SELFPAY ==
[2023-03-17 15:38] LABS: Microalbumin,Random Urine 62.9 mg/L (NO RANGE EST.); Microalbumin:Creatinine Ratio 53.8 mg/g CRE (<30 mg/g CRE)
[2023-03-17 16:18] LABS: AST(SGOT) 16 U/L (15-37); Alanine Aminotransfer ALT/SGPT 29 U/L (16-61); Albumin, Serum 3.7 g/dL (3.2-5.0); Alkaline Phosphatase 74 U/L (45-117); Anion Gap 3 (5-15); BUN 19 mg/dL (7-18); BUN/Creat Ratio 23.4 RATIO (10-20); Bilirubin, Direct 0.12 mg/dL (0.00-0.30); Calcium,Total 9.4 mg/dL (8.5-10.1); Chloride 106 mmol/L (98-107); Cholesterol 120 mg/dL (200); Creatinine, Serum 0.81 mg/dL (0.70-1.30); EST Glomerular Filtration Rate 99 mL/min (>60); Est Glom Filt Rate - Afr Amer 120 mL/min (>60); Globulin 3.3 g/dL (2.2-4.2); Glucose 102 mg/dL (74-106); High Density Lipoprotein 50 mg/dL; Sodium Level 136 mmol/L (136-145); Triglycerides 165 mg/dL; Very Low Density Lipoprotein 33 mg/dL (5-40)
== END | disposition home or self-care (01) ==
LOC: MTLAB 11:21
PROVIDERS: PCP Family Medicine; Referring Provider Family Medicine; Visit Provider Family Medicine
DX: E11.59 Type 2 diabetes mellitus with other circulatory complications (principal)
CPT/HCPCS: 36415; 80048; 80061; 80076; 82043; 82570

== ENCOUNTER → 2024-04-08 | Outpatient (CLI) | payer MEDICARE, SELFPAY ==
[2024-04-08 18:25] LABS: Protein, Urine (Random) 22.3 mg/dL (<11.9); Protein:Creat Ratio 172 mg/g CRE (0-200)
[2024-04-08 18:41] LABS: AST(SGOT) 16 U/L (15-37); Alanine Aminotransfer ALT/SGPT 25 U/L (16-61); Albumin, Serum 3.4 g/dL (3.2-5.0); Alkaline Phosphatase 86 U/L (45-117); Anion Gap 6 (5-15); BUN 19 mg/dL (7-18); BUN/Creat Ratio 20.9 RATIO (10-20); Calcium,Total 9.1 mg/dL (8.5-10.1); Chloride 106 mmol/L (98-107); Cholesterol 110 mg/dL (200); Creatinine, Serum 0.91 mg/dL (0.70-1.30); EST Glomerular Filtration Rate 86 mL/min (>60); Est Glom Filt Rate - Afr Amer 105 mL/min (>60); Globulin 3.4 g/dL (2.2-4.2); Glucose 181 mg/dL (74-106); High Density Lipoprotein 44 mg/dL; PSA,Total - Annual Screen 7.27 ng/mL (0.00-4.00); Potassium 4.1 mmol/L (3.5-5.1); Protein, Total 6.8 g/dL (6.4-8.2); Sodium Level 137 mmol/L (136-145); Triglycerides 250 mg/dL; Very Low Density Lipoprotein 50 mg/dL (5-40)
== END | disposition home or self-care (01) ==
PROVIDERS: PCP Family Medicine; Referring Provider Family Medicine; Visit Provider Family Medicine
DX: E11.59 Type 2 diabetes mellitus with other circulatory complications (principal); N40.0 Benign prostatic hyperplasia without lower urinary tract symptoms
CPT/HCPCS: 36415; 80048; 80061; 80076; 82570; 84153; 84156; G0103

== ENCOUNTER → 2024-11-09 | Outpatient (CLI) | payer MEDICARE, SELFPAY ==
[2024-11-09 12:41] LABS: PSA,Total- Diagnostic 3.08 ng/mL (0.00-4.00)
== END | disposition home or self-care (01) ==
LOC: LAB 10:43
PROVIDERS: PCP Family Medicine; Referring Provider Urology; Visit Provider Urology
DX: R97.20 Elevated prostate specific antigen [PSA] (principal)
CPT/HCPCS: 36415; 84153

== ENCOUNTER → 2025-02-03 | Outpatient (CLI) | payer MEDICARE, SELFPAY ==
--- NOTE | 2025-02-03 09:06 | RAD_ITS ---
PROCEDURE: CHEST PA AND LATERAL 02/03/2025 REASON FOR EXAM: COUGH TECHNIQUE: Procedure Code: RADCXR Modality: DX Procedure: CHEST PA AND LATERAL COMPARISON: Prior study dated November 20, 2022. FINDINGS: Hardware: None Heart: The heart size is normal. Mediastinum: Tortuosity of the descending thoracic aorta. Lungs: Stable elevation of the right hemidiaphragm. No acute abnormality is seen. Bones: Degenerative changes are identified within the thoracic spine. RAD/Chest PA and Lateral IMPRESSION: Stable examination. No acute abnormality is seen. Reading Location: [id number]
--- OUTSIDE RECORDS SUMMARY | 2025-02-03 09:32 | XMS RPT_ITS | CCD ---
Author Organization [facility] Care Team Providers Care Community Development Officer Name Role Phone No Family, Physician Unavailable Unavailable GALINA, JACKIE Unavailable Unavailable RUSHING, MILANA P Unavailable Unavailable CONSULT, BURN Unavailable Unavailable JAD, BRITTON K Unavailable Unavailable JAD, BRITTON K Unavailable Unavailable JOLLIFF, MILANA S Unavailable Unavailable JAD, BRITTON K Unavailable Unavailable JAD, BRITTON K Unavailable Unavailable JOLLIFF, MILANA S Unavailable Unavailable JAD, BRITTON K Unavailable Unavailable JAD, BRITTON K Unavailable Unavailable JOLLIFF, MILANA S Unavailable Unavailable JAD, BRITTON K Unavailable Unavailable JAD, BRITTON K Unavailable Unavailable JOLLIFF, MILANA S Unavailable Unavailable JOLLIFF, MILANA S Unavailable Unavailable MARTINEZ, MELVINA A Unavailable Unavailable SELF, SELF Unavailable Unavailable JOLLIFF, MILANA S Unavailable Unavailable JAD, BRITTON K Unavailable Unavailable SELF, SELF Unavailable Unavailable JOLLIFF, MILANA S Unavailable Unavailable SELF, SELF Unavailable Unavailable JOLLIFF, MILANA S Unavailable Unavailable ENGLAND, ALFREDO M Unavailable Unavailable SELF, SELF Unavailable Unavailable JOLLIFF, MILANA S Unavailable Unavailable JAD, BRITTON K Unavailable Unavailable WELCH, VETO Unavailable Unavailable JOLLIFF, MILANA S Unavailable Unavailable JOLLIFF, MILANA S Unavailable Unavailable SELF, SELF Unavailable Unavailable JOLLIFF, MILANA S Unavailable Unavailable TIFFANIE, GERMAN A Unavailable Unavailable MarroquinCorbin Primary Care Provider [phone] Dr. Milana Marie Primary Care Provider Dr. Vinh Ortiz Admit Provider Dr. Vinh Ortiz Referring Provider Dr. Vinh Ortiz Other Provider Dr. Nicholas Dunham Attending Provider Dr. Nicholas Dunham Other Provider JOLLIFF, MILANA HAYLEY Primary Care Unavailable PROVIDER, UNKNOWN Referring Unavailable Dr. Milana Marie Primary Care Provider Dr. Vinh Ortiz Admit Provider [phone] Vinh Ortiz Referring Provider [phone] Vinh Ortiz Other Provider [phone] Nicholas Dunham Attending Provider Dr. Nicholas Dunham Other Provider Jolliff, Milana Hayley Primary Care Provider [phone] JOLLIFF, MILANA HAYLEY Primary Care Unavailable MALLORIE, EDILMA LIEN Referring Unavailable MALLORIE, EDILMA EMMANUEL Attending Unavailable JOLLIFF, MILANA HAYLEY Primary Care Unavailable MALLORIE, EDILMA EMMANUEL Referring Unavailable JOLLIFF, MILANA HAYLEY Primary Care Unavailable MALLORIE, EDILMA EMMANUEL Referring Unavailable MALLORIE, EDILMA EMMANUEL Attending Unavailable Cynthia ARREOLA, Dr. Milana Arce Primary Care Physician Sara ARREOLA, Dr. Mic Ortega Attending Physician Sara ARREOLA, Dr. Mic Ortega Referring Provider [phone] Cynthia ARREOLA, Dr. Milana Arce Referring Provider Darvin ARREOLA, Dr. Munson Attending Physician Becky ARREOLA, Dr. Mar Attending Physician Cynthia, Milana S Primary Care Unavailable Arpit Boston Attending Unavailable Selinlliff, Milana S Referring Unavailable SaraMic Referring Unavailable SaraMic Attending Unavailable Jolliff, Milana S Primary Care Unavailable Jolliff, Milana S Referring Unavailable JolliffMilana S Attending Unavailable Jolliff, Milana S Primary Care Unavailable Selinlliff, Milana S Primary Care Unavailable Zaid Pena Attending Unavailable Allergies Allergy Classification Reported Allergen(s) Allergy Type Date of Onset Reaction(s) Facility (12 sources) NIFEdipine; Translations: [NIFEDIPINE] Drug Allergy 9 Intolerance [facility] (5 sources) Penicillins Propensity to adverse reactions 3 Nausea/Vom/Diar arnold [facility] (1 source) NIFEdipine Drug Allergy 5 [facility] Rep[facility] (1 source) Penicillins Drug allergy (disorder) 5 [facility] Rep[facility] Medications Current Medications Medication Drug Class(es) Dates Sig (Normalized) Sig (Original) 8 hr acetaminophen 650 mg extended release oral tablet (5 sources) Start: 11-20-2022 take 1 tablet by mouth every twelve hours as needed for pain amLODIPine 2.5 mg oral tablet (12 sources) Dihydropyridine Calcium Channel Dawit Start: 08-23-2018 take 1 tablet by mouth at bedtime Comment on above: Take 1 tablet by meng th once daily. aspirin 81 mg chewable tablet (13 sources) Platelet Aggregation Inhibitor, Nonsteroidal Anti-inflammatory Drug Start: 12-05-2022 take 1 tablet by mouth twice daily Start: 08-23-2018 take 81 mg by mouth once daily Aspirin Active 81 MG PO DAILY August 23, 2018 12:00am Start: 04-24-2005 ASPIRIN 81 MG TAB Take by mouth. Takes every Thursday, Thursday and Thursday 0 04/24/2005 Active Comment on above: Take one(1) tablet d aily. Take by mouth. Takes every Thursday, Thursday and Thursday atorvastatin 40 mg oral tablet (12 sources) HMG-CoA Reductase Inhibitor Start: 2 take 1 tablet by mouth once daily atorvastatin (LIPITOR) 40 mg tablet Indications: Other hyperlipidemia Take 1 tablet by mouth once daily. 90 tablet 3 10/28/2021 Active Start: 08-23-2018 take 2 tablets by mo uth at bedtime Start: 08-23-2018 take 40 mg by mouth at bedtime Atorvastatin Active 40 MG PO AT BEDTIME August 22, 2018 11:00pm Start: 08-23-2018 Atorvastatin A ctive PO 90 August 23, 2018 12:00am Comment on above: Take 1 tablet by meng th once daily. finasteride 5 mg oral tablet (2 sources) 5-alpha Reductase Inhibitor Start: 11-19-19 25 take 1 tablet by mouth once daily glipiZIDE 5 mg oral tablet (3 sources) Sulfonylurea Start: 10-29-19 22 take 1 tablet by mouth twice daily before mealtime glipiZIDE (GLUCOTROL) 5 mg tablet Take 1 tablet by mouth twice daily before meals. 90 tablet 3 10/28/2021 Active Comment on above: Take 1 tablet by meng th twice daily before meals. lisinopril 40 mg oral tablet (14 sources) Angiotensin Converting Enzyme Inhibitor Start: 10-29-19 End: 10-29-19 23 take 1 tablet by mouth once daily lisinopril (ZESTRIL, PRINIVIL) 40 mg tablet Indications: Primary hypertension Take 1 tablet by mouth once daily. 90 tablet 3 10/28/2021 Active Start: 08-23-2018 take 2 tablets by mo [facility] once daily Start: 08-23-2018 take 40 mg by mouth once daily Lisinopril Active 40 MG PO DAILY 180 August 22, 2018 11:00pm Start: 05-15-2006 End: 10-28-2021 Lisinopril Active PO 180 Aug 12:00am Comment on above: Take one(1) tablet d aily. Take 1 tablet by meng th once daily. Magnesium (2 sources) take 800 mg by mouth once daily MAGNESIUM ORAL Take 800 mg by mouth once daily. Active take 800 mg by mouth once daily MAGNESIUM ORAL Take 800 mg by mouth once daily. 0 Active magnesium hydroxide 400 mg chewable tablet (9 sources) Start: 08-23-2018 take 1 tablet by meng th twice daily Start: 08-23-2018 Magnesium Hydr oxide Active 800 MG PO August 23, 2018 12:00am metFORMIN hydrochloride 500 mg oral tablet (12 sources) Biguanide Start: 10-28-2021 take 2 tablets by mouth once daily metFORMIN (GLUCOPHAGE) 500 mg tablet Take 2 tablets by mouth once daily. 90 tablet 11 10/28/2021 Active Start: 08-23-2018 take 1 tablet by mouth at bedt divya Start: 08-23-2018 Metformin Acti ve PO 90 August 23, 2018 12:00am Comment on above: Take 2 tablets by mo [facility] once daily. 24 hr metoprolol succinate 25 mg extended release oral tablet (5 sources) beta-Adrenergic Dawit Start: 11-18-2024 take 1 tablet by mouth once daily Start: 01-19-2023 End: 09-14-2023 take 1 tablet by mouth once daily metoprolol succinate ER (TOPROL XL) 25 mg 24 hr tablet Indications: Coronary artery disease involving buck[place] coronary artery of [place] heart without angina pectoris , Primary hypertension Take 1 tablet by mouth once daily. 90 tablet 3 09/14/2023 Active THERAPEUTIC MULTIVITAMIN TAB (4 sources) Start: 04-24-2005 THERAPEUTIC MULTIVITAMIN TAB Take one(1) tablet daily. 0 04/24/2005 Active Comment on above: Take one(1) tablet d ailryne. ubidecarenone 100 mg oral capsule (2 sources) Start: 11-18-2024 ubiquinol (2 sources) COQ10, UBIQUINOL , ORAL Take by mouth once daily. Active COQ10, UBIQUINOL , ORAL Take by mouth once daily. 0 Active Completed/Discontinued Medications Medication Drug Class(es) Dates Sig (Normalized) Sig (Original) docusate sodium 50 mg / sennosides, long-term 8.6 mg oral tablet (5 sources) Start: 12-05-2022 End: 11-18-2024 Sennosides-Docusat e Sodium (Stool Softener-Stimulant Laxat) 8.6-50 mg Tablet Discontinued 2 {tbl} PO TWICE A DAY 28 7 December 05, 2022 12:00am November 18, 2024 1:10pm famotidine 20 mg oral tablet (5 sources) Histamine-2 Receptor Antagonist Start: 12-05-2022 End: 11-18-2024 take 1 tablet by mouth once daily Famotidine 20 mg Tablet Discontinued 20 mg PO DAILY 30 30 December 05, 2022 12:00am November 18, 2024 1:10pm meloxicam 7.5 mg oral tablet (5 sources) Nonsteroidal Anti-inflammatory Drug Start: 12-05-2022 End: 11-18-2024 take 1 tablet by mouth twice daily Meloxicam 7.5 mg Tablet Discontinued 7.5 mg PO TWICE A DAY 60 30 0 December 05, 2022 12:00am November 18, 2024 1:10pm naproxen sodium 220 mg oral capsule (5 sources) Nonsteroidal Anti-inflammatory Drug Start: 11-20-2022 End: 12-05-2022 take 2 capsules by mouth once daily as needed for pain Naproxen Sodium (Aleve) 220 mg capsule Discontinued 440 mg PO DAILY as needed for pain November 20, 2022 12:00am December 05, 2022 7:50am 24 hr niacin 1000 mg extended release oral tablet (2 sources) Nicotinic Acid Start: 05-15-2006 End: 10-28-2021 NIASPAN 1,000 MG TAB Take one(1) tablet daily. 0 05/15/2006 10/28/2021 Discontinued Comment on above: Take one(1) tablet d aily. oxyCODONE hydrochloride 5 mg oral tablet (5 sources) Opioid Agonist Start: 12-05-2022 End: 11-18-2024 take 5-10 mg by mouth every four hours as needed for pain Oxycodone 5 mg Tablet Discontinued 5 - 10 mg PO EVERY 4 HOURS NEEDED as needed for Pain Score 4-10 42 7 0 December 05, 2022 November 18, 2024 1:10pm Presence of left hip implant Presence of left artificial hip joint Problems Active Problems Problem Classification Problem Date Documented Da te Episodic/Chronic Aortic; peripheral; and visceral artery aneurysms (7 sources) Aortic root dilatation; Translations: [Thoracic aortic ectasia] Onset: 10-28-2021 Chronic Wyman (1 source) Burn; Translations: [Burn] Onset: 08-03-2017 Episodic Coronary atherosclerosis and other heart disease (7 sources) Coronary atherosclerosis; Translations: [Atherosclerotic heart disease of buck[place] coronary artery without angina pectoris] Onset: 10-28-2021 Chronic Diabetes mellitus with complications (1 source) Type 2 diabetes mellitus with other circulatory complications; Translations: [Type 2 diabetes mellitus with other circulatory complications] Onset: 04-19-2024 Chronic Diabetes mellitus without complication (7 sources) Diabetes mellitus; Translations: [Type 2 diabetes mellitus without complications] 12-04-2022 Chronic Comment on above: ON ORAL MEDS Disorders of lipid metabolism (7 sources) Hyperlipidemia; Translations: [Other hyperlipidemia] Onset: 10-28-2021 Chronic Essential hypertension (7 sources) Essential hypertension; Translations: [Essential (primary) hypertension] Onset: 10-28-2021 Chronic Other circulatory disease (1 source) Disorder of arteries and arterioles, unspecified; Translations: [Disorder of artery or arteriole (HCC)] Onset: 02-13-2023 Chronic Other connective tissue disease (5 sources) Device in situ; Translations: [Presence of left artificial hip joint] 12-05-2022 Chronic Other connective tissue disease (2 sources) Presence of left artificial hip joint; Translations: [Hip joint replacement] 12-05-2022 Chronic Other nutritional; endocrine; and metabolic disorders (4 sources) Obese class I; Translations: [Obesity, unspecified] Onset: 10-28-2021 Chronic Other nutritional; endocrine; and metabolic disorders (2 sources) Body mass index 30+ - obesity; Translations: [Obesity, unspecified] 11-18-2024 Chronic Other screening for suspected conditions (not mental disorders or infectious disease) (2 sources) Patient encounter status; Translations: [Encounter for screening for cardiovascular disorders] Onset: 11-17-2024 Episodic Spondylosis; intervertebral disc disorders; other back problems (2 sources) Disorder of lumbar disc; Translations: [Bulging of lumbar intervertebral disc] 11-18-2024 Chronic Spondylosis; intervertebral disc disorders; other back problems (1 source) Dorsalgia, unspecified; Translations: [Dorsalgia, unspecified] Onset: 11-18-2024 Episodic Unclassified (2 sources) Unspecified open wound, right lower leg, initial encounter / S81.801A(ICD-10) Onset: 06-17-2017 Unclassified (1 source) Burn Follow-up / 591() Onset: 10-12-2017 Unclassified (1 source) Burn / 84() Onset: 08-03-2017 Unclassified (1 source) Follow-up / 145() Onset: 07-27-2017 Past or Other Problems Problem Classification Problem Date Documented Da te Episodic/Chronic Other non-epithelial cancer of skin (4 sources) History of malignant neoplasm of skin; Translations: [Personal history of other malignant neoplasm of skin] Onset: 11-16-2005 11-16-2005 Episodic Unclassified (1 source) Burn Follow-up; Translations: [Burn Follow-up] Onset: 10-12-2017 Unclassified (1 source) Follow-up; Translations: [Follow-up] Onset: 07-27-2017 Unclassified (1 source) Unspecified open wound, right lower leg, initial encounter; Translations: [Unspecified open wound, right lower leg, initial encounter] Onset: 07-21-2017 Results Test Name Value Interpretation Reference Range Facility L/S Spine Min 4 Viewson 10-0 3-2024 L/S Spine Min 4 Views [facility] Imaging Services [address] [place] [address] L/S Spine Min 4 Views MR#: [id number] Acct: [id number] Name: GHISLAINE URBINA Jr. Rep #: [id number] : 1950 M 74 From: Russell Hdz MD PCP: Dr. Milana Marie MD Status: DEP AMB Study: L/S Spine Min 4 Views Date of Exam: 11/18/24 Exam# [id number] Ordering Dr: Rakel Peralta PROCEDURE: L/S SPINE MIN 4 VIEWS 11/18/2024 REASON FOR EXAM: BACK PAIN TECHNIQUE: Procedure Code: RADSPLS Modality: DX Procedure: L/S SPINE MIN 4 VIEWS FINDINGS: No evidence of acute fracture or dislocation. Mild S shaped scoliotic curvature. Moderate degenerative changes of the visualized spine. Vertebral body heights are maintained. No instability on flexion-extension views. Surgical clips within the abdomen. RAD/L/S Spine Min 4 Views IMPRESSION: Spondylosis. S shaped scoliotic curvature. Reading Location: [address] CC: MELO Barrera; Dr. Milana Marie MD Adult Family Home Program Manager: Signed Normal [facility] Orthopedic Visit Reporton Orthopedic Visit Report [facility] [address] [place] [address] [address] [place] [address] OFFICE VISIT Date of Service: 11/18/24 MR#: [id number] Acct: [id number] Name: YAHAIRAGHISLAINE Rep #: [id number] : 1950 Provider: Dr. Arpit Boston MD Age/Sex: 74/M Location: [facility] Status: Signed Intake Vital Signs 12/04/22 15:30 11/18/24 13:18 Height 6 ft 1.2 in 6 ft 1 in Weight: 242 lb BMI 31.9 Intake Visit Reasons: THORACIC SPINE Branch Lending Officer Required: No Is patient in pain?: No Allergies Penicillins Adverse Reaction (Intermediate, Verified 11/18/24 13:08) Nausea/Vom/Diarrhea nifedipine (From Procardia) Adverse Reaction (Verified 11/18/24 13:08) effected BP Medications ???Medication ???Instructions ???Recorded ???Confirmed ???Type amlodipine 2.5 mg tablet 2.5 mg PO QHS #90 tabs 08/23/18 History atorvastatin 20 mg tablet 40 mg PO QHS #90 tabs 08/23/1805/10 History lisinopril 20 mg tablet 40 mg PO DAILY #180 tabs 08/23/18 11/18/24 History magnesium hydroxide 400 mg (170 mg 400 mg PO BID 08/23/18 11/18/24 History magnesium) chewable tablet metformin 1,000 mg tablet 1,000 mg PO QHS #90 tabs 08/23/18 11/18/24 History acetaminophen 650 mg 650 mg PO Q12H PRN pain 11/20/22 1 History tablet,extended release aspirin 81 mg chewable tablet 81 mg PO BID 30 days #60 tabs 11/1711/18/24 Rx coenzyme Q10 100 mg capsule 100 mg PO QDAY 11/18/24 11/18/24 H istory (CoQ-10) finasteride 5 mg tablet 5 mg PO QDAY 11/18/24 11/18/24 His tory metoprolol succinate 25 mg 25 mg PO QDAY 11/18/24 11/18/24 Hi story tablet,extended release 24 hr Have you fallen in the past year?: No PFSH Medical History (Updated 11/18/24 @ 15:[address] Arpit Boston MD) Bulging lumbar disc Obesity (BMI 30-39.9) History of benign neoplasm of adrenal gland Pain Wears partial dentures Wears glasses Ambulates with cane Arthritis Low iron High cholesterol Migraine headache Dietary restriction Smoker Leg cramps History of pain when walking History of echocardiogram Cardiology follow-up encounter History of irregular heartbeat Hypertension Diabetes mellitus Surgical History (Updated 11/20/22 @ 11:24 by Ludmila Guido) Hx of repair of right rotator cuff Hx of colonoscopy History of surgery on lower extremity Social History (Updated 11/18/24 @ 13:13 by My Rodriguez) current occupation: multimedia coordinator Delivers tractor trailers, run parts, and sweep. Smoking Status: Current every day smoker tobacco type: cigars alcohol intake: never substance use type: does not use HPI THORACIC SPINE Details: This documentation accurately reflects the service provided and the decisions made by me, Dr. Arpit Boston MD 11/18/24 1308. Part of today???s visit was documented by Treva Venegas RN, acting as scribe. GHISLAINE YAHAIRA is a 74 year old M here today for previous Orthopedic DrAmie Chow retired. Received back injections on occasion, last received about 1.5 years ago. Denies low back pain at this time. Has i ntermittent low back with last episode of sharp pain a few months ago. Reports B/L hand tingling upon waking but goes away after a few minutes. Denies recent imaging, PT or injections. He denies neck pain or pain down the arm. The patient is a 74-year-old male presenting for evaluation of back pain and numbness in hands. The patient reports a history of lumbar disc bulge diagnosed via MRI a couple of years ago, for which he received injections that provided relief. He has not had any injections for the past two years and reports no current back pain or leg symptoms. The patient experiences intermittent numbness in both hands, primarily upon waking, which resolves within minutes. He denies any neck pain or pain radiating down the arms. The patient has a history of pheochromocytoma, for which he underwent surgery resulting in a transverse scar on the right side of the abdomen. - Musculoskeletal: Denies current back pain, leg pain, or difficulty walking. - Neurological: Reports intermittent numbness in hands upon waking; denies neck pain or pain radiating down the arms. Attestation: Documentation on this patient encounter was supported using ambient scribe technology/ voice AI technology. The patient consented to recording for the purpose of documenting the encounter. Prov ider reviewed content of the generated note prior to signature. Ortho Exam General General: Yes no acute distress Neurologic: Yes alert and Yes oriented x3 Psychologic: Yes reasonable and appropriate Exam Narrative - Musculoskeletal: Strength testing of lower extremities showed normal strength bilaterally. - Neurological: Hand humane agent strength was normal bilaterally. - Neurological: Sensation was equal (more content not included)... Normal [facility] Thoracic Spine 2 Viewson Thoracic Spine 2 Views [facility] Imaging Services [address] [place] [address] Thoracic Spine 2 Views MR#: [id number] Acct: [id number] Name: GHISLAINE URBINA Jr. Rep #: [id number] : 1950 M 74 From: Russell Hdz MD PCP: Dr. Milana Marie MD Status: DEP AMB Study: Thoracic Spine 2 Views Date of Exam: 11/18/24 Exam# [id number] Ordering Dr: Rakel Peralta PROCEDURE: THORACIC SPINE 2 VIEWS 11/18/2024 REASON FOR EXAM: BACK PAIN TECHNIQUE: Procedure Code: RADSPT2 Modality: DX Procedure: THORACIC SPINE 2 VIEWS FINDINGS: No evidence of acute fracture or dislocation. Moderate degenerative changes of the visualized spine. Normal alignment. Vertebral body heights are maintained. RAD/Thoracic Spine 2 Views IMPRESSION: Spondylosis. Reading Location: [address] CC: MELO Barrera; Dr. Milana Marie MD Adult Family Home Program Manager: Signed Normal [facility] PSA,Total- Diagnosticon 10-18 PSA, DIAGNOSTIC 3.08 ng/mL Normal 0.00-4.00 [facility] Comment on above: Result Comment: This test was performed using the [facility] tPSA method. Measured values of a patient??sample can vary depending on the testing procedure used. PSA values determined on patient samples by different testing procedures cannot be used interchangeably. If there is a change in PSA assays while monitoring therapy, sequential testing should be performed to confirm baseline values. Performed By: #### L [id number] #### [facility] [address] [place], [address] CNOVon 05-09-2024 CNOV Office Visit (BRANDON ) ----- GHISLAINE URBINA ([id number]) 1950 M Date Time Provider Department 05/09/24 1:40 PM EDILMA NOBLES During your visit today, we recorded the following information about you: Pulse Respiration Blood pressure Weight 85/minute 14/minute 118/70 109.8 kg Height 1.854 m Edilma Nobles MD 05/09/2024 2:03 PM Signed [facility] Cardiology ([address]) [address] [facility] [id number] OUTPATIENT VISIT DATE 05/09/2024 PRIMARY CARE PHYSICIAN: CORBIN MARROQUIN [address] [place] [address] HISTORY OF PRESENT ILLNESS: Mr. Urbina is a 74 year old gentleman with mild coronary artery disease on prior catheterization, dyslipidemia, hypertension, dilated aortic root, PVCs, ongoing smoking (cigars) and diabetes ([id number]) who presents the office for routine follow-up. Patient has been doing well from a functional standpoint. He has no symptoms concerning for angina. 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 He has had no limitations in his functional capacity. He denies shortness of breath or dyspnea on exertion. He has not had symptoms concerning for congestive heart failure including PND, orthopnea, or lower extremity edema. PAST MEDICAL HISTORY Diagnosis Date Aortic root dilation (HCC) Benign essential hypertension CAD (coronary artery disease) Mitral regurgitation PVC (premature ventricular contraction) PAST SURGICAL HISTORY Procedure Laterality Date PAST SURGICAL HISTORY OF benign kidney tumor removed 1998 PAST SURGICAL HISTORY OF Right 2014 Shoulder PAST SURGICAL HISTORY OF 06/2017 Skin graft onb right left due to degloved TOTAL HIP REPLACEMENT Left 12/04/2022 SOCIAL HISTORY Social History Tobacco Use Smoking status: Every Day Current packs/day: 1.00 Average packs/day: 1 pack/day for 20.0 years (20.0 ttl pk-yrs) Types: Cigarettes Smokeless tobacco: Never Vaping Use Vaping status: Never Used Substance Use Topics Alcohol use: Not Currently Drug use: Never FAMILY HISTORY Problem Relation Age of Onset Coronary Artery Disease Father None Mother some memory loss ALLERGIES: ALLERGIES Allergen Reactions Procardia [Nifedipi* Intolerance MEDICATIONS: metoprolol succinate ER (TOPROL XL) 25 mg 24 hr tablet Take 1 tablet by mouth once daily. MAGNESIUM ORAL Take 800 mg by mouth once daily. COQ10, UBIQUINOL, ORAL Take by mouth once daily. lisinopril (ZESTRIL, PRINIVIL) 40 mg tablet Take 1 tablet by mouth once daily. metFORMIN (GLUCOPHAGE) 500 mg tablet Take 2 tablets by mouth once daily. atorvastatin (LIPITOR) 40 mg tablet Take 1 tablet by mouth once daily. amLODIPine (NORVASC) 2.5 mg tablet Take 1 tablet by mouth once daily. glipiZIDE (GLUCOTROL) 5 mg tablet Take 1 tablet by mouth twice daily before meals. (Patient not taking: Reported on 04/28/2022) THERAPEUTIC MULTIVITAMIN TAB Take one(1) tablet daily. (Patient not taking: Reported on 04/28/2022) ASPIRIN 81 MG TAB Take by mouth. Takes every Thursday, Thursday and Thursday REVIEW OF SYSTEMS: Review of Systems Constitutional: Negative for chills, fever, malaise/fatigue and weight loss. HENT: Negative for hearing loss and sore throat. Eyes: Negative for blurred vision and double vision. Respiratory: Negative. Cardiovascular: Negative. Gastrointestinal: Negative. Genitourinary: Negative for dysuria, frequency, hematuria and urgency. Musculoskeletal: Negative. Skin: Negative. Neurological: Negative for dizziness, seizures, loss of consciousness, weakness and headaches. Endo/Heme/Allergies: Negative for environmental allergies. Does not bruise/bleed easily. Psychiatric/Behavioral: Negative for depression. PHYSICAL EXAMINATION: BP 118/70 Pulse 85 Resp 14 Ht 6' 1 (1.85m) Wt 242 lb (109.8kg) SpO2 98% BMI 31.93 kg/(m2). General: Pleasant gentleman sitting appears comfortable no apparent distress. He is alert and oriented x3 HEENT: Carotid upstrokes are brisk bilaterally without bruits no JVD appreciated. Pulmonary: Lungs are clear no rales, wheezes, or rhonchi. Cardiovascular: Normal S1, S2 with regular rate and rhythm. No murmurs, rubs, or gallops Extremities: Warm, well-perfused, no lower extremity edema. 2+ distal pulses. CARDIOVASCULAR MEDICINE TESTING: Cardiac catheterization [facility] 10/18/2020: Left ventricle: Systolic function is normal. The estimated ejection fraction is 55-60% First diagonal: Proximal vessel lesion: There is a 80% stenosis Left circumflex: Mild disease LAD: Mild disease RCA: Mild disease Echocardiogram 02/26/2024: - Exam indication: Ascending aortic aneurysm - The left ventricle is normal in size. Left ventricular systolic function is normal (more content not included)... Normal [facility] Basic Metabolic Profile (BMP )on 04-08-2024 BUN/CRE 20.9 RATIO High 10-20 [facility] Comment on above: Performed By: #### L 500.3400, L500.2500, L501.0900, L500.4100, L501.9910 #### [facility] [address] [place], [address] CA,Total 9.1 mg/dL Normal 8.5-10.1 [facility] Comment on above: Performed By: #### L 500.3400, L500.2500, L501.0900, L500.4100, L501.9910 #### [facility] [address] [place], [address] Chloride [Moles/Vol] 106 mmol/L Normal 98-107 [facility] Comment on above: Performed By: #### L 500.3400, L500.2500, L501.0900, L500.4100, L501.9910 #### [facility] [address] [place], [address] CO2 [Moles/Vol] 25.0 mmol/L Normal 21.0-32.0 [facility] Comment on above: Performed By: #### L 500.3400, L500.2500, L501.0900, L500.4100, L501.9910 #### [facility] [address] [place], [address] Creatinine [Mass/Vol] 0.91 mg/dL Normal 0.70-1.30 [facility] Comment on above: Result Comment: The validity of the calculated GFR GFRAA in patients over 70 years has not been determined. Clinical correlation is essential. Performed By: #### L 500.3400, L500.2500, L501.0900, L500.4100, L501.9910 #### [facility] [address] [place], [address] EST GFR - AA 105 mL/min Normal >60 [facility] Comment on above: Result Comment: Afri can Martiniquais GFR Calc Performed By: #### L 500.3400, L500.2500, L501.0900, L500.4100, L501.9910 #### [facility] [address] [place], [address] GAP 6 Normal 5-15 [facility] Comment on above: Performed By: #### L 500.3400, L500.2500, L501.0900, L500.4100, L501.9910 #### [facility] [address] [place], [address] GFR/1.73 sq M.predicted among non-blacks MDRD (S/P/Bld) [Vol rate/Area] 86 mL/min/{1.73_m2} Normal >60 [facility] Comment on above: Result Comment: Non- GFR Calc Performed By: #### L 500.3400, L500.2500, L501.0900, L500.4100, L501.9910 #### [facility] [address] [place], [address] Glucose [Mass/Vol] 181 mg/dL High 74-106 [facility] Comment on above: Result Comment: Fast ing Glucose result greater than or equal to 126 mg/dL suggests DIABETES MELLITUS per A.D.A. criteria. Performed By: #### L 500.3400, L500.2500, L501.0900, L500.4100, L501.9910 #### [facility] [address] [place], [address] Potassium [Moles/Vol] 4.1 mmol/L Normal 3.5-5.1 [facility] Comment on above: Performed By: #### L 500.3400, L500.2500, L501.0900, L500.4100, L501.9910 #### [facility] [address] [place], [address] Sodium [Moles/Vol] 137 mmol/L Normal 136-145 [facility] Comment on above: Performed By: #### L 500.3400, L500.2500, L501.0900, L500.4100, L501.9910 #### [facility] [address] [place], [address] Urea nitrogen [Mass/Vol] 19 mg/dL High 7-18 [facility] Comment on above: Performed By: #### L 500.3400, L500.2500, L501.0900, L500.4100, L501.9910 #### [facility] [address] [place], [address] Lipid Profileon 04-08-2024 Cholesterol [Mass/Vol] 110 mg/dL Normal 200 [facility] Comment on above: Result Comment: <200 mg/dL Desirable 200-240 mg/dL Borderline >240 mg/dL High Risk Performed By: #### L 500.3400, L500.2500, L501.0900, L500.4100, L501.9910 #### [facility] [address] [place], [address] Cholesterol in HDL [Mass/Vol] 44 mg/dL Normal [facility] Comment on above: Result Comment: The drugs N-Acetylcysteine and Metamizole may falsely depress this assay. Reference Range HDL <40 mg/dL Low HDL Cholesterol HDL >or= 60 mg/dL High HDL Cholesterol Performed By: #### L 500.3400, L500.2500, L501.0900, L500.4100, L501.9910 #### [facility] [address] [place], [address] Cholesterol in LDL [Mass/Vol] 16 mg/dL Normal 0-130 [facility] Comment on above: Performed By: #### L 500.3400, L500.2500, L501.0900, L500.4100, L501.9910 #### [facility] [address] [place], [address] Cholesterol in VLDL [Mass/Vol] 50 mg/dL High 5-40 [facility] Comment on above: Performed By: #### L 500.3400, L500.2500, L501.0900, L500.4100, L501.9910 #### [facility] [address] [place], [address] Triglyceride [Mass/Vol] 250 mg/dL High [facility] Comment on above: Result Comment: The drugs N-Acetylcysteine and Metamizole may falsely depress this assay. Serum Triglycerides Reference Interval Normal <150 mg/dL Borderline high 150 - 199 mg/dL High 200 - 499 mg/dL Very High > or = 500 mg/dL Performed By: #### L 500.3400, L500.2500, L501.0900, L500.4100, L501.9910 #### [facility] [address] [place], [address] Liver Profileon 04-08-2024 Albumin [Mass/Vol] 3.4 g/dL Normal 3.2-5.0 [facility] Comment on above: Performed By: #### L 500.3400, L500.2500, L501.0900, L500.4100, L501.9910 #### [facility] [address] [place], [address] ALK P 86 U/L Normal 45-117 [facility] Comment on above: Performed By: #### L 500.3400, L500.2500, L501.0900, L500.4100, L501.9910 #### [facility] [address] [place], [address] ALT [Catalytic activity/Vol] 25 U/L Normal 16-61 [facility] Comment on above: Performed By: #### L 500.3400, L500.2500, L501.0900, L500.4100, L501.9910 #### [facility] [address] [place], [address] AST [Catalytic activity/Vol] 16 U/L Normal 15-37 [facility] Comment on above: Performed By: #### L 500.3400, L500.2500, L501.0900, L500.4100, L501.9910 #### [facility] [address] [place], [address] Bilirubin [Mass/Vol] 0.30 mg/dL Normal 0.20-1.00 [facility] Comment on above: Result Comment: For patients on eltrombopag therapy, use of Dimension Arthur TBIL is not recommended. Performed By: #### L 500.3400, L500.2500, L501.0900, L500.4100, L501.9910 #### [facility] [address] [place], [address] Bilirubin.direct [Mass/Vol] 0.10 mg/dL Normal 0.00-0.30 [facility] Comment on above: Performed By: #### L 500.3400, L500.2500, L501.0900, L500.4100, L501.9910 #### [facility] [address] [place], [address] Globulin (S) [Mass/Vol] 3.4 g/dL Normal 2.2-4.2 [facility] Comment on above: Performed By: #### L 500.3400, L500.2500, L501.0900, L500.4100, L501.9910 #### [facility] [address] [place], [address] T PROT 6.8 g/dL Normal 6.4-8.2 [facility] Comment on above: Performed By: #### L 500.3400, L500.2500, L501.0900, L500.4100, L501.9910 #### [facility] [address] [place], [address] PSA,Total - Annual Screenon 04-08-2024 PSA,TOT SCREEN 7.27 ng/mL High 0.00-4.00 [facility] Comment on above: Result Comment: This test was performed using the TPSA assay method for the [employer] chemistry system. Values obtained with different assay methods cannot be used interchangably. When changing PSA assays in the course of monitoring a patient, additional sequential testing should be carried out to confirm baseline values. Performed By: #### L 500.3400, L500.2500, L501.0900, L500.4100, L501.9910 #### [facility] [address] [place], [address] Protein+Creatinine Ratio,Uri neon 04-08-2024 PROT:CRE RATIO 172 mg/g CRE Normal 0-200 [facility] Comment on above: Performed By: #### L 500.3400, L500.2500, L501.0900, L500.4100, L501.9910 #### [facility] [address] [place], [address] Protein (U) [Mass/Vol] 22.3 mg/dL High <11.9 [facility] Comment on above: Performed By: #### L 500.3400, L500.2500, L501.0900, L500.4100, L501.9910 #### [facility] [address] [place], [address] UR CREAT 130.00 mg/dL Normal NO RANGE EST. [facility] Comment on above: Performed By: #### L 500.3400, L500.2500, L501.0900, L500.4100, L501.9910 #### [facility] [address] [place], [address] ECHOon 02-26-2024 Echocardiography Echocardiography Rep ort: Transthoracic Echo [facility] Date of service: 02/26/2024 12:51:17 PM ADMINISTRATOR Ordering physician: EDILMA NOBLES Indication: Ascending aortic aneurysm Technologist: Eloise Galloway [facility] Interpreting physician: Sascha Jameson MD PATIENT: Name: MR. GHISLAINE URBINA : 1950 Age: 73 years Gender: M History of hypertension, dyslipidemia and coronary artery disease. Primary rhythm: sinus. Height: 185.40 cm BSA: 2.38 m Weight: 109.77 kg BMI: 31.9 kg/m Heart rate 71 bpm Blood pressure 152/65 mmHg Technically difficult exam due to body habitus. Color Doppler was utilized to interrogate the cardiac valves assessed and spectral Doppler was utilized to determine the flow velocities and pressure gradients reported in this exam. Myocardial strain analysis was performed in this exam to aid in the assessment of cardiac function. MEASUREMENTS: Value Indexed Normal Max aortic dimension 4.6 cm Ao < 3.8 Left atrial volume 37 ml (biplane A-L) 15 ml/m Bairon <= 34 LV ID (diastole) 4.2 cm (2D) 1.77 cm/m LV ID (systole) 2.8 cm (2D) 1.18 cm/m IVS, leaflet tips 1.1 cm (2D) Posterior wall thickness 1.1 cm (2D) Left ventricular mass 162 g (2D) 68 g/m Global peak long strain -17.7 % LV stroke volume 68 ml (2D biplane) LV end diastolic volume 115 ml (2D biplane) 48.5 ml/m 34<=EDVi<75 LV end systolic volume 48 ml (2D biplane) 20.0 ml/m Ejection Fraction 59 % (2D biplane) EF > 52 FINDINGS: LEFT VENTRICLE The left ventricle is normal in size. Left ventricular systolic function is normal. Global LV myocardial strain is normal. Grade I left ventricular diastolic dysfunction. Mitral annular lateral E/e': 7.5. Mitral annular septal E/e': 9.3. Wall Motion: All scored segments are normal. RIGHT VENTRICLE The right ventricle is normal in size. Right ventricular systolic function is normal. RV systolic tissue Doppler velocity is 12.0 cm/s. Tricuspid annular displacement is 2.3 cm. Estimated right ventricular systolic pressure is not reported due to an insufficient tricuspid regurgitation signal. Estimated right atrial pressure is not included as the IVC was not seen. LEFT ATRIUM The left atrial cavity is normal in size. RIGHT ATRIUM The right atrial cavity is normal in size. MITRAL VALVE The mitral valve leaflets are structurally normal. There is trace (trace - 1+) mitral valve regurgitation. The pressure half time is 53 msec. The peak mitral E/A ratio is 0.72. The average mitral E/e' ratio is 8.4. The mitral flow deceleration time is 184 msec. TRICUSPID VALVE The tricuspid valve leaflets are structurally normal. There is trace tricuspid valve regurgitation. AORTIC VALVE There is no aortic valve regurgitation. There is mild thickening. The peak gradient is 11 mmHg (peak velocity = 167.6 cm/s). PULMONIC VALVE The pulmonic valve cusps are structurally normal. There is no pulmonic valve regurgitation. AORTA The visualized aorta is dilated. Measurements - Sinus: 4.6 cm. Sinotubular junction 4.0 cm. Mid ascending aorta 4.2 cm. Mid arch 3.7 cm. PERICARDIUM There is no pericardial effusion. There is an epicardial fat pad. CONCLUSIONS: - Technically difficult exam due to body habitus. - Exam indication: Ascending aortic aneurysm - The left ventricle is normal in size. Left ventricular systolic function is normal. EF = 59 5% (2D biplane) Grade I left ventricular diastolic dysfunction. - The right ventricle is normal in size. Right ventricular systolic function is normal. - The visualized aorta is dilated with a maximal dimension of 4.6 cm. - Exam was compared with the prior echocardiographic exam performed on 08/08/2022, no significant change. * * * Final * * * [employer] [facility] : [id number] Normal [facility] CNOVon 09-14-2023 CNOV Office Visit (CAWSTR ) ----- GHISLAINE URBINA ([id number]) 1950 M Date Time Provider Department 09/14/23 10:40 AM EDILMA NOBLES During your visit today, we recorded the following information about you: Pulse Blood pressure Weight 75/minute 134/76 109.8 kg Edilma Nobles MD 09/14/2023 11:41 AM Signed [facility] Cardiology ([address]) [address] [facility] [phone] OUTPATIENT VISIT DATE 09/14/2023 PRIMARY CARE PHYSICIAN: CORBIN MARROQUIN [address] [place] [address] HISTORY OF PRESENT ILLNESS: Mr. Urbina is a 73 year old gentleman with mild coronary artery disease on prior catheterization, dyslipidemia, hypertension, dilated aortic root, PVCs, ongoing smoking (cigars) and diabetes ([id number]) who presents the office for routine follow-up. Patient continues to do well from a functional standpoint. He still works part-time. He has not had symptoms of chest pain, chest pressure, or shortness of breath on exertion. He has no symptoms concerning for congestive heart failure including PND, orthopnea, or lower extremity edema. PAST MEDICAL HISTORY Diagnosis Date Aortic root dilation (HCC) Benign essential hypertension CAD (coronary artery disease) Mitral regurgitation PVC (premature ventricular contraction) PAST SURGICAL HISTORY Procedure Laterality Date PAST SURGICAL HISTORY OF benign kidney tumor removed 1998 PAST SURGICAL HISTORY OF Right 2014 Shoulder PAST SURGICAL HISTORY OF 06/2017 Skin graft onb right left due to degloved TOTAL HIP REPLACEMENT Left 12/04/2022 SOCIAL HISTORY Social History Tobacco Use Smoking status: Every Day Packs/day: 1.00 Years: 20.00 Additional pack years: 0.00 Total pack years: 20.00 Types: Cigarettes Smokeless tobacco: Never Vaping Use Vaping Use: Never used Substance Use Topics Alcohol use: Not Currently Drug use: Never FAMILY HISTORY Problem Relation Age of Onset Coronary Artery Disease Father None Mother some memory loss ALLERGIES: ALLERGIES Allergen Reactions Procardia [Nifedipi* Intolerance MEDICATIONS: metoprolol succinate ER (TOPROL XL) 25 mg 24 hr tablet Take 1 tablet by mouth once daily. MAGNESIUM ORAL Take 800 mg by mouth once daily. COQ10, UBIQUINOL, ORAL Take by mouth once daily. lisinopril (ZESTRIL, PRINIVIL) 40 mg tablet Take 1 tablet by mouth once daily. metFORMIN (GLUCOPHAGE) 500 mg tablet Take 2 tablets by mouth once daily. atorvastatin (LIPITOR) 40 mg tablet Take 1 tablet by mouth once daily. amLODIPine (NORVASC) 2.5 mg tablet Take 1 tablet by mouth once daily. ASPIRIN 81 MG TAB Take by mouth. Takes every Thursday, Thursday and Thursday glipiZIDE (GLUCOTROL) 5 mg tablet Take 1 tablet by mouth twice daily before meals. (Patient not taking: Reported on 04/28/2022) THERAPEUTIC MULTIVITAMIN TAB Take one(1) tablet daily. (Patient not taking: Reported on 04/28/2022) REVIEW OF SYSTEMS: Review of Systems Constitutional: Negative for chills, fever, malaise/fatigue and weight loss. HENT: Negative for hearing loss and sore throat. Eyes: Negative for blurred vision and double vision. Respiratory: Negative. Cardiovascular: Negative. Gastrointestinal: Negative. Genitourinary: Negative for dysuria, frequency, hematuria and urgency. Musculoskeletal: Negative. Skin: Negative. Neurological: Negative for dizziness, seizures, loss of consciousness, weakness and headaches. Endo/Heme/Allergies: Negative for environmental allergies. Does not bruise/bleed easily. Psychiatric/Behavioral: Negative for depression. PHYSICAL EXAMINATION: BP 134/76 Pulse 75 Wt 242 lb (109.8kg) SpO2 95% General: Pleasant gentleman sitting appears comfortable no apparent distress. He is alert and oriented x3 HEENT: Carotid upstrokes are brisk bilaterally without bruits no JVD appreciated. Pulmonary: Lungs are clear no rales, wheezes, or rhonchi. Cardiovascular: Normal S1, S2 with regular rate and rhythm. No murmurs, rubs, or gallops Remedies: Warm, well-perfused, no lower extremity edema. 2+ distal pulses. CARDIOVASCULAR MEDICINE TESTING: Cardiac catheterization [facility] 10/18/2020: Left ventricle: Systolic function is normal. The estimated ejection fraction is 55-60% First diagonal: Proximal vessel lesion: There is a 80% stenosis Left circumflex: Mild disease LAD: Mild disease RCA: Mild disease Echocardiogram 08/08/2022: - Technically difficult exam due to body habitus. - Exam indication: Ascending aortic aneurysm - The left ventricle is normal in size. Left ventricular systolic function is normal. EF = 55 ? 5% (visual est.) Indeterminate left ventricular diastolic dysfunction. - The right ventricle is normal in size. Right ventric (more content not included)... [facility] Basophil percentageOrdered B y: Milana Marie on 03-17-2023 Bilirubin [Mass/Vol] 0.40 mg/dL 0.20-1.00 [facility] Comment on above: For patients on eltr ombopag therapy, use of Dimension Arthur TBIL is not recommended. Chloride [Moles/Vol] 106 mmol/L 98-107 [facility] Cholesterol [Mass/Vol] 120 mg/dL <200 [facility] Comment on above: <200 mg/dL Desirable 200-240 mg/dL Borderline >240 mg/dL High Risk Glucose [Mass/Vol] 102 mg/dL 74-106 [facility] Comment on above: Fasting Glucose resu lt from 100 to 125 mg/dL suggests IMPAIRED HOMEOSTASIS per A.D.A. criteria. Potassium [Moles/Vol] 4.0 mmol/L 3.5-5.1 [facility] Protein [Mass/Vol] 7.0 g/dL 6.4-8.2 [facility] Sodium [Moles/Vol] 136 mmol/L 136-145 [facility] Triglyceride [Mass/Vol] 165 mg/dL <199 [facility] Comment on above: The drugs N-Acetylcy steine and Metamizole may falsely depress this assay.Serum Triglycerides Reference Interval Normal <150 mg/dL Borderline high 150 - 199 mg/dL High 200 - 499 mg/dL Very High > or = 500 mg/dL Direct bilirubinOrdered By: Milana Marie on 03-17-2023 Bilirubin.direct [Mass/Vol] 0.12 mg/dL 0.00-0.30 [facility] High density lipoprotein (HD L) measurementOrdered By: Milana Marie on 03-17-2023 Cholesterol in HDL (Body fld) [Mass/Vol] 50 mg/dL >40 [facility] Comment on above: The drugs N-Acetylcy steine and Metamizole may falsely depress this assay. Reference Range HDL <40 mg/dL Low HDL Cholesterol HDL >or= 60 mg/dL High HDL Cholesterol Laboratory - Chemistry and C hemistry - challengeOrdered By: Milana Marie on 03-17-2023 ALP [Catalytic activity/Vol] 74 U/L 45-117 [facility] ALT [Catalytic activity/Vol] 29 U/L 16-61 [facility] CO2 [Moles/Vol] 27.0 mmol/L 21.0-32.0 [facility] Globulin (S) [Mass/Vol] 3.3 g/dL 2.2-4.2 [facility] Urea nitrogen/Creatinine [Mass ratio] 23.4 mg/mg 10-20 [facility] Low density lipoprotein (LDL ) cholesterol measurementOrdered By: Milana Marie on 03-17-2023 Cholesterol in LDL (Body fld) [Moles/Vol] 37 mg/dL 0-130 [facility] No Panel InformationOrdered By: Milana Marie on 03-17-2023 Estimated GFR (MDRD) Amer 120 mL/min >60 [facility] Comment on above: GFR Calc Estimated GFR (MDRD) Non-Af Amer 99 mL/min >60 [facility] Comment on above: Non- GFR Calc Serum or plasma calcium abdiel urement (mass/volume)Ordered By: Milana Marie on 03-17-2023 Calcium [Mass/Vol] 9.4 mg/dL 8.5-10.1 [facility] Serum or plasma creatinine m easurement (mass/volume)Ordered By: Milana Marie on 03-17-2023 Creatinine [Mass/Vol] 0.81 mg/dL 0.70-1.30 [facility] Comment on above: The validity of the calculated GFR & GFRAA in patients over 70 years has not been determined. Clinical correlation is essential. Serum or plasma urea nitroge n measurement (mass/volume)Ordered By: Milana Marie on 03-17-2023 Urea nitrogen [Mass/Vol] 19 mg/dL 7-18 [facility] Thin prep Papanicolaou smear with manual screeningOrdered By: Milana Marie on 03-17-2023 Thin prep Papanicolaou smear with manual screening 3.7 g/dL 3.2-5.0 [facility] Thin prep Papanicolaou smear with manual screening 16 U/L 15-37 [facility] Thin prep Papanicolaou smear with manual screening 3 5-15 [facility] Thin prep Papanicolaou smear with manual screening 62.9 mg/L NO RANGE EST. [facility] Urine albumin/creatinine rat io for detection of microalbuminuriaOrdered By: Milana Marie on 03-17-2023 Albumin/Creatinine DL <= 1.0 mg/L (24H U) [Ratio] 53.8 mg/g CRE <30 [facility] Urine creatinine measurement (mass/volume)Ordered By: Milana Marie on 03-17-2023 Creatinine (U) [Mass/Vol] 117.00 mg/dL NO RANGE EST. [facility] Very low density lipoprotein (VLDL) cholesterol measurementOrdered By: Milana Marie on 03-17-2023 Cholesterol in VLDL Calc [Moles/Vol] 33 mg/dL 5-40 [facility] ALLIED HEALTHon 02-13-2023 ALLIED HEALTH HNO ID: [id number] Author: Roberta [place] RT(R) Service: Radiology Author Type: Technologist Type: Allied Health Filed: 02/13/2023 12:53 PM Note Text: Radiology Service Progress Note PATIENT NAME: Ghislaine Urbina DATE OF SERVICE: February 13, 2023 TIME: 12:52 PM PATIENT IDENTITY VERIFICATION COMPLETED USING TWO (2) IDENTIFIERS: Name and Date of confirmed by patient verbally and Name and Date of confirmed by identification band. FALL SCREENING: Has the patient had 2 falls in the last year or 1 fall with injury or currently using an Ambulatory Assistive Device (Walker, Cane, Wheelchair, Crutches, etc.)? No PATIENT GENDER DATA: Male PATIENT RELEVANT IMPLANT DATA REVIEWED: Not Applicable RADIOLOGY DEPARTMENT: CT; Exam(s) Completed: Cardiac PERIPHERAL IV DATA: Site assessment: Clean,Dry and Intact, Site disposition Discontinued SIGNED BY: RT Bernard(R) February 13, 2023 12:52 PM [facility] [place] CTA CHEST (GATED) W IVCONon 02-13-2023 CTA CHEST (GATED) W IVCON * * *Final Report* * * DATE OF EXAM: Feb 13 2023 1:00PM [facility] [place] 0125 - CTA CHEST (GATED) W IVCON / PROCEDURE REASON: I77.9-Disorder of artery or arteriole (HCC) * * * * Physician Interpretation * * * * CTA Aorta chest Direct Image Comparison: None HISTORY: 72 years old Male with chronic h/o dilated thoracic aorta by echo further evaluation, along with mild coronary heart disease, PVCs, hypertension, dyslipidemia, diabetes, and smoking. Evaluation for diagnostic clarification and further treatment options. There is request to define thoracic and aortic anatomy TECHNIQUE: SCANNER: [employer] PROTOCOL: Prospectively triggered helical high-pitch acquisitions (triggered Flash-mode) was performed following the intravenous administration of contrast material. Scan Range: thoracic inlet to the diaphragm CT Dose-Length Product (DLP): 205 mGy*cm CT Dose Reduction Employed: Automated exposure control(AEC) and iterative recon CONTRAST: IV administration of 90 ml Omnipaque 350 Scan acquisition: uncomplicated For optimization of anatomic evaluation, advanced 3-D off-line postprocessing was performed on a dedicated workstation by the interpreting physician. STUDY LIMITATIONS: None. RESULT: LINES, TUBES and DEVICES: None CHEST: Chest wall anatomy: unremarkable. LUNGS: bibasilar atelectasis. MEDIASTINUM: unremarkable. PERICARDIUM: unremarkable CENTRAL PULMONARY ARTERY: normal dimensions, assessment is limited due to limited contrast enhancement Elevated right hemidiaphragm. CARDIAC CHAMBERS: LEFT VENTRICLE: normal size Right ventricle: normal size Left atrium: normal size. KATHY: normal Right atrium: normal size CENTRAL VENOUS and PULMONARY VENOUS RETURN: normal Coronary Sinus: normal size MITRAL and TRICUSPID VALVE: Assessment is limited in the current study no leaflet calcification, No annular calcification PULMONIC VALVE: Assessment is limited in the current study. No leaflet calcification CORONARY ANATOMY: Normal origin of the coronary arteries Calcified atherosclerotic changes of the coronary arteries (especially left), precluding precise assessment with CT. AORTIC VALVE: appears trileaflet; mild leaflet calcification AORTA: Size: Normal size thoracic aorta. Pathology: No acute aortic pathology. STJ: maintained Wall Changes: minimal atherosclerotic changes Arch Branch Vessels: Patent, normal size proximal segments of the arch branch vessels. Normal origin of the arch branch vessels. AORTIC DIMENSIONS: [place] AORTIC ROOT: 4.7 cm measured [id number], , Area 13.4 cm2, indexed 7.2 cm2/m mid ASCENDING THORACIC AORTA: 4.2 cm, , Area 13.2 cm2 mid AORTIC ARCH: 3.3 cm mid DESCENDING THORACIC AORTA: 3.4 cm limited upper ABDOMEN: surgical changes in right upper abdomen (known prior kidney surgery) BONES: degenerative changes of the thoracic spine [employer] Psychologist (topogram) images: Prior right shoulder and left hip surgery changes IMPRESSION: 1. Moderate dilation of the mid ascending aorta (4.7 cm, 13.4 cm2, 7.2 cm2/m) and mild ectasia of the aortic root (4.2 cm, 13.2 cm2). The remaining thoracic aorta is normal in course, caliber and has minimal atherosclerotic changes. No acute aortic pathology identified. Adult Family Home Program Manager: PSCB Transcribe Date/Time: Feb 14 2023 10:02A Dictated by : SIMONA PEÑA MD This examination was interpreted and the report reviewed and electronically signed by: SIMONA PEÑA MD on Feb 14 2023 11:22AM EST [id number] Normal [facility] Basophil percentageOrdered B y: Vinh Ortiz on 12-05-2022 Chloride [Moles/Vol] 106 mmol/L 98-107 [facility] Glucose [Mass/Vol] 181 mg/dL 74-106 [facility] Comment on above: Fasting Glucose resu lt greater than or equal to 126 mg/dL suggests DIABETES MELLITUS per A.D.A. criteria. Potassium [Moles/Vol] 4.1 mmol/L 3.5-5.1 [facility] Sodium [Moles/Vol] 139 mmol/L 136-145 [facility] WBC (Bld) [#/Vol] 12.2 10*3/uL 4.4-11.0 [facility] Blood erythrocytes count (nu mber/volume)Ordered By: Vinh Ortiz on 12-05-2022 RBC (Bld) [#/Vol] 3.82 10*6/uL 4.6-6.2 [facility] Blood hemoglobin measurement (mass/volume)Ordered By: Vinh Ortiz on 12-05-2022 Hemoglobin (Bld) [Mass/Vol] 11.2 g/dL 13.0-16.5 [facility] Blood platelet mean volumeOr dered By: Vinh Ortiz on 12-05-2022 Platelet mean volume (Bld) [Entitic vol] 10.2 fL 6.2-12.0 [facility] Determination of erythrocyte mean corpuscular volume (MCV)Ordered By: Vinh Ortiz on 12-05-2022 MCV (RBC) [Entitic vol] 90.3 fL 80-94 [facility] Hematocrit Auto (Bld) [Volum e fraction]Ordered By: Vinh Ortiz on 12-05-2022 Hematocrit (Bld) [Volume fraction] 34.5 % 40-54 [facility] Laboratory - Chemistry and C hemistry - challengeOrdered By: Vinh Ortiz on 12-05-2022 CO2 [Moles/Vol] 27.0 mmol/L 21.0-32.0 [facility] Urea nitrogen/Creatinine [Mass ratio] 22.1 mg/mg 12-05 [facility] Laboratory - Hematology and Cell countsOrdered By: Vinh Ortiz on 12-05-2022 Erythrocyte distribution width (RBC) [Entitic vol] 43.0 fL 35.1-43.9 [facility] Erythrocyte distribution width (RBC) [Ratio] 13.2 % 11.6-14.6 [facility] MCH (RBC) [Entitic mass] 29.3 pg 27.0-32.0 [facility] MCHC Auto (RBC) [Mass/Vol]Or dered By: Vinh Ortiz on 12-05-2022 MCHC (RBC) [Mass/Vol] 32.5 g/dL 32-36 [facility] No Panel InformationOrdered By: Vinh Ortiz on 12-05-2022 Estimated Creatinine Clearance Calc 86.46 ml/min [facility] Estimated GFR (MDRD) Amer 112 mL/min >60 [facility] Comment on above: GFR Calc Estimated GFR (MDRD) Non-Af Amer 93 mL/min >60 [facility] Comment on above: Non- GFR Calc Platelets bldOrdered By: Ruddy Ortiz on 12-05-2022 Platelets (Bld) [#/Vol] 237 10*3/uL 150-450 [facility] Serum or plasma calcium abdiel urement (mass/volume)Ordered By: Vinh Ortiz on 12-05-2022 Calcium [Mass/Vol] 8.6 mg/dL 8.5-10.1 [facility] Serum or plasma creatinine m easurement (mass/volume)Ordered By: Vinh Ortiz on 12-05-2022 Creatinine [Mass/Vol] 0.86 mg/dL 0.70-1.30 [facility] Comment on above: The validity of the calculated GFR & GFRAA in patients over 70 years has not been determined. Clinical correlation is essential. Serum or plasma urea nitroge n measurement (mass/volume)Ordered By: Vinh Ortiz on 12-05-2022 Urea nitrogen [Mass/Vol] 19 mg/dL 7-18 [facility] Thin prep Papanicolaou smear with manual screeningOrdered By: Vinh Ortiz on 12-05-2022 Thin prep Papanicolaou smear with manual screening 6 5-15 [facility] Glucose Glucometer (BldC) [M ass/Vol]Ordered By: Vinh Oritz on 12-04-2022 Glucose [Mass/Vol] 189 mg/dL 74-106 [facility] Comment on above: MANAGEMENT OF PATIEN T CARE PER NURSING PROTOCOL Absolute lymphocyte countOrd ered By: Vinh Ortiz on 11-20-2022 Lymphocytes Auto (Unsp spec) [#/Vol] 1.63 10*3/uL 0.83-4.51 [facility] Basophil percentageOrdered B y: Vinh Ortiz on 11-20-2022 Basophils/100 WBC (Bld) 0.7 % 0-1 [facility] Eosinophils/100 WBC (Bld) 2.6 % 0-5 [facility] Neutrophils (Bld) [#/Vol] 4.5 10*3/uL 2.0-7.7 [facility] Neutrophils/100 WBC (Bld) 65.2 % 47-70 [facility] Blood lymphocytes/100 leukoc ytesOrdered By: Vinh Ortiz on 11-20-2022 Lymphocytes/100 WBC (Bld) 23.6 % 19-41 [facility] Blood monocytes/100 leukocyt esOrdered By: Vinh Ortiz on 11-20-2022 Monocytes/100 WBC (Bld) 7.5 % 0-10 [facility] Laboratory - Chemistry and C hemistry - challengeOrdered By: Maciel Salazar on 11-20-2022 Magnesium [Mass/Vol] 2.2 mg/dL 1.6-2.6 [facility] Laboratory - Hematology and Cell countsOrdered By: iVnh Ortiz on 11-20-2022 Immature granulocytes/100 WBC (Bld) 0.400 % 0.0-0.9 [facility] Comment on above: IG% - Immature Granu locytes (promyelocytes, myelocytes and metamyelocytes) > 1% indicates that a LEFT SHIFT is Present. Nucleated RBC/100 WBC (Bld) [Ratio] 0 % 0-5 [facility] No Panel InformationOrdered By: Vinh Ortiz on 11-20-2022 Nasal Screen MRSA/MSSA [facility] Nasal Screen MRSA/MSSA [facility] Serum or plasma albumin abdiel urement (mass/volume)Ordered By: Vinh Ortiz on 11-20-2022 Albumin [Mass/Vol] 3.4 g/dL 3.2-5.0 [facility] Whole blood hemoglobin A1c/t otal hemoglobin ratio (mass fraction)Ordered By: Vinh Ortiz on 11-20-2022 HbA1c (Bld) [Mass fraction] 6.5 % 3.8-5.6 [facility] Comment on above: Normal < 5.7 % Predi abetic 5.7 - 6.4 % Diabetic >or= 6.5 % Please note range changes. Basophil percentageOrdered B y: Milana Marie on 09-08-2022 Bilirubin [Mass/Vol] 0.30 mg/dL 0.20-1.00 [facility] Comment on above: For patients on eltr ombopag therapy, use of Dimension Arthur TBIL is not recommended. Chloride [Moles/Vol] 106 mmol/L 98-107 [facility] Cholesterol [Mass/Vol] 95 mg/dL <200 [facility] Comment on above: <200 mg/dL Desirable 200-240 mg/dL Borderline >240 mg/dL High Risk Glucose [Mass/Vol] 97 mg/dL 74-106 [facility] Potassium [Moles/Vol] 4.3 mmol/L 3.5-5.1 [facility] Protein [Mass/Vol] 6.7 g/dL 6.4-8.2 [facility] Sodium [Moles/Vol] 139 mmol/L 136-145 [facility] Triglyceride [Mass/Vol] 115 mg/dL <199 [facility] Comment on above: The drugs N-Acetylcy steine and Metamizole may falsely depress this assay.Serum Triglycerides Reference Interval Normal <150 mg/dL Borderline high 150 - 199 mg/dL High 200 - 499 mg/dL Very High > or = 500 mg/dL Direct bilirubinOrdered By: Milana Marie on 09-08-2022 Bilirubin.direct [Mass/Vol] 0.11 mg/dL 0.00-0.30 [facility] Laboratory - Chemistry and C hemistry - challengeOrdered By: Milana Marie on 09-08-2022 ALP [Catalytic activity/Vol] 69 U/L 45-117 [facility] ALT [Catalytic activity/Vol] 37 U/L 16-61 [facility] CO2 [Moles/Vol] 29.0 mmol/L 21.0-32.0 [facility] Globulin (S) [Mass/Vol] 3.3 g/dL 2.2-4.2 [facility] Urea nitrogen/Creatinine [Mass ratio] 20.9 mg/mg 10-20 [facility] No Panel InformationOrdered By: Milana Marie on 09-08-2022 Estimated GFR (MDRD) Amer 112 mL/min >60 [facility] Comment on above: GFR Calc Estimated GFR (MDRD) Non-Af Amer 93 mL/min >60 [facility] Comment on above: Non- GFR Calc Prostate Specific Antigen Screen 3.77 ng/mL 0.00-4.00 [facility] Comment on above: This test was perfor med using the TPSA assay method for [facility] chemistry system. Values obtained with differentassay methods cannot be used interchangably.When changing PSA assays in the course of monitoring apatient, additional sequential testing should be carriedout to confirm baseline values. Serum or plasma albumin abdiel urement (mass/volume)Ordered By: Milana Marie on 09-08-2022 Albumin [Mass/Vol] 3.4 g/dL 3.2-5.0 [facility] Serum or plasma calcium abdiel urement (mass/volume)Ordered By: Milana Marie on 09-08-2022 Calcium [Mass/Vol] 9.1 mg/dL 8.5-10.1 [facility] Serum or plasma cholesterol in HDL measurement (mass/volume)Ordered By: Milana Marie on 09-08-2022 Cholesterol in HDL [Mass/Vol] 53 mg/dL >40 [facility] Comment on above: The drugs N-Acetylcy steine and Metamizole may falsely depress this assay. Reference Range HDL <40 mg/dL Low HDL Cholesterol HDL >or= 60 mg/dL High HDL Cholesterol Serum or plasma cholesterol in VLDL measurement (mass/volume)Ordered By: Milana Marie on 09-08-2022 Cholesterol in VLDL [Mass/Vol] 23 mg/dL 5-40 [facility] Serum or plasma creatinine m easurement (mass/volume)Ordered By: Milana Marie on 09-08-2022 Creatinine [Mass/Vol] 0.86 mg/dL 0.70-1.30 [facility] Comment on above: The validity of the calculated GFR & GFRAA in patients over 70 years has not been determined. Clinical correlation is essential. Serum or plasma low density lipoprotein (LDL) cholesterol measurement (mass/volume)Ordered By: Milana Marie on 09-08-2022 Cholesterol in LDL [Mass/Vol] 19 mg/dL 0-130 [facility] Serum or plasma urea nitroge n measurement (mass/volume)Ordered By: Milana Maire on 09-08-2022 Urea nitrogen [Mass/Vol] 18 mg/dL 7-18 [facility] Thin prep Papanicolaou smear with manual screeningOrdered By: Milana Marie on 09-08-2022 Thin prep Papanicolaou smear with manual screening 16 U/L 15-37 [facility] Thin prep Papanicolaou smear with manual screening 4 5-15 [facility] Basophil percentageon 2021 Basophil percentage < 0.9 mg/dL 0.70-1.30 [facility] Work Phone: No Panel Informationon 10-09 Bedside Estimated GFR (eGFR) > 60.0000 mL/min >60 [facility] Work Phone: Basophil percentageon 2021 Bilirubin [Mass/Vol] 0.40 mg/dL 0.20-1.00 [facility] Work Phone: Comment on above: For patients on eltr ombopag therapy, use of Dimension Arthur TBIL is not recommended. Chloride [Moles/Vol] 105 mmol/L 98-107 [facility] Work Phone: Cholesterol [Mass/Vol] 115 mg/dL <200 [facility] Work Phone: Comment on above: <200 mg/dL Desirable 200-240 mg/dL Borderline >240 mg/dL High Risk Glucose [Mass/Vol] 197 mg/dL 74-106 [facility] Work Phone: Comment on above: Fasting Glucose resu lt greater than or equal to 126 mg/dL suggests DIABETES MELLITUS per A.D.A. criteria. Potassium [Moles/Vol] 4.2 mmol/L 3.5-5.1 [facility] Work Phone: Protein [Mass/Vol] 6.8 g/dL 6.4-8.2 [facility] Work Phone: Sodium [Moles/Vol] 137 mmol/L 136-145 [facility] Work Phone: Triglyceride [Mass/Vol] 159 mg/dL <199 [facility] Work Phone: Comment on above: The drugs N-Acetylcy steine and Metamizole may falsely depress this assay.Serum Triglycerides Reference Interval Normal <150 mg/dL Borderline high 150 - 199 mg/dL High 200 - 499 mg/dL Very High > or = 500 mg/dL Direct bilirubinon 2 Bilirubin.direct [Mass/Vol] 0.09 mg/dL 0.00-0.30 [facility] Work Phone: Laboratory - Chemistry and C hemistry - challengeon 08-30-2021 ALP [Catalytic activity/Vol] 78 U/L 45-117 [facility] Work Phone: ALT [Catalytic activity/Vol] 29 U/L 16-61 [facility] Work Phone: CO2 [Moles/Vol] 27.0 mmol/L 21.0-32.0 [facility] Work Phone: Globulin (S) [Mass/Vol] 3.3 g/dL 2.2-4.2 [facility] Work Phone: Urea nitrogen/Creatinine [Mass ratio] 21.8 mg/mg 10-20 [facility] Work Phone: No Panel Informationon 08-30 Estimated GFR (MDRD) Amer 110 mL/min >60 [facility] Work Phone: Comment on above: GFR Calc Estimated GFR (MDRD) Non-Af Amer 91 mL/min >60 [facility] Work Phone: Comment on above: Non- GFR Calc Prostate Specific Antigen Screen 3.31 ng/mL 0.00-4.00 [facility] Work Phone: Comment on above: This test was perfor med using the TPSA assay method for [facility] chemistry system. Values obtained with differentassay methods cannot be used interchangably.When changing PSA assays in the course of monitoring apatient, additional sequential testing should be carriedout to confirm baseline values. Serum or plasma albumin abdiel urement (mass/volume)on 08-30-2021 Albumin [Mass/Vol] 3.5 g/dL 3.2-5.0 [facility] Work Phone: Serum or plasma calcium abidel urement (mass/volume)on 08-30-2021 Calcium [Mass/Vol] 9.4 mg/dL 8.5-10.1 [facility] Work Phone: Serum or plasma cholesterol in HDL measurement (mass/volume)on 08-30-2021 Cholesterol in HDL [Mass/Vol] 43 mg/dL >40 [facility] Work Phone: Comment on above: The drugs N-Acetylcy steine and Metamizole may falsely depress this assay. Reference Range HDL <40 mg/dL Low HDL Cholesterol HDL >or= 60 mg/dL High HDL Cholesterol Serum or plasma cholesterol in VLDL measurement (mass/volume)on 08-30-2021 Cholesterol in VLDL [Mass/Vol] 32 mg/dL 5-40 [facility] Work Phone: Serum or plasma creatinine m easurement (mass/volume)on 08-30-2021 Creatinine [Mass/Vol] 0.87 mg/dL 0.70-1.30 [facility] Work Phone: Comment on above: The validity of the calculated GFR & GFRAA in patients over 70 years has not been determined. Clinical correlation is essential. Serum or plasma low density lipoprotein (LDL) cholesterol measurement (mass/volume)on 08-30-2021 Cholesterol in LDL [Mass/Vol] 40 mg/dL 0-130 [facility] Work Phone: Serum or plasma urea nitroge n measurement (mass/volume)on 08-30-2021 Urea nitrogen [Mass/Vol] 19 mg/dL 7-18 [facility] Work Phone: Thin prep Papanicolaou smear with manual screeningon 08-30-2021 Thin prep Papanicolaou smear with manual screening 16 U/L 15-37 [facility] Work Phone: Thin prep Papanicolaou smear with manual screening 5 5-15 [facility] Work Phone: Whole blood hemoglobin A1c/t otal hemoglobin ratio (mass fraction)on 08-30-2021 HbA1c (Bld) [Mass fraction] 9.1 % 3.8-5.6 [facility] Work Phone: Comment on above: Normal < 5.7 % Predi abetic 5.7 - 6.4 % Diabetic >or= 6.5 % Please note range changes. .Auto Diffon 10-23-2020 Basophil, Absolute 0.10 10 3/mcL Normal 0.00-0.19 [facility] ([place]) Comment on above: Performed By: #### C BC, ADVIOLA, ANEU #### [address] [address] #### BMP, GFR #### [address] [address] Basophils/100 WBC (Bld) 0.9 % Normal 0.0-2.5 [facility] ([place]) Comment on above: Performed By: #### C BC, ADIFF, ANEU #### [address] [address] #### BMP, GFR #### [address] [address] Eosinophil, Absolute 0.60 10 3/mcL High 0.00-0.40 [facility] ([place]) Comment on above: Performed By: #### C BC, ADIFF, ANEU #### [address] [address] #### BMP, GFR #### [address] [address] Eosinophils/100 WBC (Bld) 7.4 % High 0.0-7.0 [facility] ([place]) Comment on above: Performed By: #### C BC, ADIFF, ANEU #### [address] [address] #### BMP, GFR #### [address] [address] Lymphocyte, Absolute 2.40 10 3/mcL Normal 0.77-3.85 [facility] ([place]) Comment on above: Performed By: #### C BC, ADIFF, ANEU #### [address] [address] #### BMP, GFR #### [address] [address] Lymphocytes/100 WBC (Bld) 29.6 % Normal 10.0-50.0 [facility] ([place]) Comment on above: Performed By: #### C BC, ADIFF, ANEU #### [place] [id number] #### BMP, GFR #### [address] [address] Monocyte, Absolute 0.70 10 3/mcL Normal 0.15-1.00 [facility] ([place]) Comment on above: Performed By: #### C BC, ADIFF, ANEU #### [address] [address] #### BMP, GFR #### [address] [address] Monocytes/100 WBC (Bld) 8.3 % Normal 1.7-13.0 [facility] ([place]) Comment on above: Performed By: #### C BC, ADIFF, ANEU #### [address] [address] #### BMP, GFR #### [address] [address] Neutrophils/100 WBC (Bld) 53.8 % Normal 37.0-80.0 [facility] ([place] Comment on above: Performed By: #### C BC, ADIFF, ANEU #### [address] [address] #### BMP, GFR #### [address] [address] .GFRon 10-23-2020 GFR 88 ml/min/1.73sqm Normal [facility] ([place]) Comment on above: Result Comment: GFR Population mean for , Non- Americans Ages 20-29 = 116 mL/min/1.73 sq.m. Ages 30-39 = 107 mL/min/1.73 sq.m. Ages 40-49 = 99 mL/min/1.73 sq.m. Ages 50-59 = 93 mL/min/1.73 sq.m. Ages 60-69 = 85 mL/min/1.73 sq.m. Ages 70+ = 75 mL/min/1.73 sq.m. Chronic Kidney Disease: Less than 60 mL/min/1.73 square meters End Stage Renal Disease: Less than 15 mL/min/1.73 square meters Performed By: #### C BC, ADIFF, ANEU, PRO #### [address] [address] GFR Non- 73 ml/min/1.73sqm Normal [facility] ([place] Comment on above: Result Comment: GFR Population mean for , Non- Americans Ages 20-29 = 116 mL/min/1.73 sq.m. Ages 30-39 = 107 mL/min/1.73 sq.m. Ages 40-49 = 99 mL/min/1.73 sq.m. Ages 50-59 = 93 mL/min/1.73 sq.m. Ages 60-69 = 85 mL/min/1.73 sq.m. Ages 70+ = 75 mL/min/1.73 sq.m. Chronic Kidney Disease: Less than 60 mL/min/1.73 square meters End Stage Renal Disease: Less than 15 mL/min/1.73 square meters Performed By: #### C ELINOR BEE ANEU, PRO #### [address] [address] .NEUABSon 10-23-2020 Neutrophil, Absolute 4.30 10 3/mcL Normal 2.85-6.16 [facility] ([place]) Comment on above: Performed By: #### ELINOR CASTELLANOS ANEU, PRO #### [address] [address] BMPon 10-23-2020 BUN/Creatinine Ratio 21 ratio Normal 7-27 [facility] ([place]) Comment on above: Performed By: #### ELINOR CASTELLANOS ANEU, PRO #### [address] [address] Calcium [Mass/Vol] 9.2 mg/dL Normal 8.4-10.2 [facility] ([place]) Comment on above: Performed By: #### ELINOR CASTELLANOS ANEU, PRO #### [address] [address] Chloride [Moles/Vol] 103 mmol/L Normal 98-107 [facility] ([place]) Comment on above: Performed By: #### ELINOR CASTELLANOS ANEU, PRO #### [place] [address] [address] CO2 [Moles/Vol] 32 mmol/L High 23-31 [facility] ([place] Comment on above: Performed By: #### C ELINOR BEE ANEU, PRO #### [place] [address] [address] Creatinine [Mass/Vol] 1.01 mg/dL Normal 0.70-1.30 [facility] ([place] Comment on above: Performed By: #### ELINOR CASTELLANOS ANEU, PRO #### [place] [address] [address] Electrolyte Balance 6.0 mEq/L Normal [facility] ([place] Comment on above: Performed By: #### ELINOR CASTELLANOS ANEU, PRO #### [place] [address] [address] Glucose [Mass/Vol] 154 mg/dL High 83-110 [facility] ([place]) Comment on above: Performed By: #### ELINOR CASTELLANOS ANEU, PRO #### [place] [address] [address] Potassium [Moles/Vol] 4.4 mmol/L Normal 3.5-5.1 [facility] ([place] Comment on above: Performed By: #### ELINOR CASTELLANOS ANEU, PRO #### [place] [address] [address] Sodium [Moles/Vol] 141 mmol/L Normal 136-145 [facility] ([place] Comment on above: Performed By: #### ELINOR CASTELLANOS ANEU, PRO #### [place] [address] [address] Urea nitrogen [Mass/Vol] 21 mg/dL High 7-18 [facility] ([place] Comment on above: Performed By: #### ELINOR CASTELLANOS ANEU, PRO #### [place] [address] [address] CBCon 10-23-2020 Erythrocyte distribution width (RBC) [Ratio] 14.3 % Normal 11.5-14.5 [facility] ([place] Comment on above: Performed By: #### C BC, ADIFF, ANEU #### [address] [address] #### BMP, GFR #### [address] [address] Hematocrit (Bld) [Volume fraction] 43.5 % Normal 42.0-52.0 [facility] ([place] Comment on above: Performed By: #### C BC, ADIFF, ANEU #### [place] [address] #### BMP, GFR #### [place] [address] Hgb 14.7 G/dL Normal 14.0-18.0 [facility] ([place] Comment on above: Performed By: #### C BC, ADIFF, ANEU #### [place] [address] #### BMP, GFR #### [place] [address] MCH (RBC) [Entitic mass] 29.3 pg Normal 27.0-31.2 [facility] ([place] Comment on above: Performed By: #### C BC, ADIFF, ANEU #### [place] [address] #### BMP, GFR #### [place] [address] MCHC 33.9 G/dL Normal 31.8-35.4 [facility] ([place] Comment on above: Performed By: #### C BC, ADIFF, ANEU #### [address] [address] #### BMP, GFR #### [place] [id number] MCV (RBC) [Entitic vol] 86.5 fL Normal 80.0-94.0 [facility] ([place] Comment on above: Performed By: #### C BC, ADIFF, ANEU #### [place] [address] #### BMP, GFR #### [address] [address] Platelet 252 10 3/mcL Normal 130-400 [facility] ([place]) Comment on above: Performed By: #### C BC, ADIFF, ANEU #### [place] [address] #### BMP, GFR #### [address] [address] Platelet mean volume (Bld) [Entitic vol] 8.7 fL Normal 7.4-10.4 [facility] ([place] Comment on above: Performed By: #### C BC, ADIFF, ANEU #### [place] [address] #### BMP, GFR #### [place] [address] RBC 5.03 10 6/mcL Normal 4.04-6.13 [facility] ([place] Comment on above: Performed By: #### C BC, ADIFF, ANEU #### [place] [address] #### BMP, GFR #### [place] [address] WBC 8.00 10 3/mcL Normal 4.60-10.80 [facility] ([place] Comment on above: Performed By: #### C BC, ADIFF, ANEU #### [place] [address] #### BMP, GFR #### [address] [address] .Auto Diffon 10-13-2020 Basophil, Absolute 0.10 10 3/mcL Normal 0.00-0.19 [facility] ([place]) Comment on above: Performed By: #### C BC, ADIFF, ANEU, PRO #### [address] [address] Basophils/100 WBC (Bld) 0.8 % Normal 0.0-2.5 [facility] ([place]) Comment on above: Performed By: #### C BC, ADIFF, ANEU, PRO #### [address] [address] Eosinophil, Absolute 0.40 10 3/mcL Normal 0.00-0.40 [facility] ([place]) Comment on above: Performed By: #### C BC, ADIFF, ANEU, PRO #### [address] [address] Eosinophils/100 WBC (Bld) 6.4 % Normal 0.0-7.0 [facility] ([place]) Comment on above: Performed By: #### C BC, ADIFF, ANEU, PRO #### [address] [address] Lymphocyte, Absolute 2.30 10 3/mcL Normal 0.77-3.85 [facility] ([place]) Comment on above: Performed By: #### C BC, ADIFF, ANEU, PRO #### [address] [address] Lymphocytes/100 WBC (Bld) 33.8 % Normal 10.0-50.0 [facility] ([place]) Comment on above: Performed By: #### C BC, ADIFF, ANEU, PRO #### [address] [address] Monocyte, Absolute 0.60 10 3/mcL Normal 0.15-1.00 [facility] ([place]) Comment on above: Performed By: #### C BC, ADIFF, ANEU, PRO #### [address] [address] Monocytes/100 WBC (Bld) 9.3 % Normal 1.7-13.0 [facility] ([place]) Comment on above: Performed By: #### C BC, ADIFF, ANEU, PRO #### [address] [address] Neutrophils/100 WBC (Bld) 49.7 % Normal 37.0-80.0 [facility] ([place]) Comment on above: Performed By: #### C BC, ADIFF, ANEU, PRO #### [address] [address] .GFRon 10-13-2020 GFR 86 ml/min/1.73sqm Normal [facility] ([place]) Comment on above: Result Comment: GFR Population mean for , Non- Americans Ages 20-29 = 116 mL/min/1.73 sq.m. Ages 30-39 = 107 mL/min/1.73 sq.m. Ages 40-49 = 99 mL/min/1.73 sq.m. Ages 50-59 = 93 mL/min/1.73 sq.m. Ages 60-69 = 85 mL/min/1.73 sq.m. Ages 70+ = 75 mL/min/1.73 sq.m. Chronic Kidney Disease: Less than 60 mL/min/1.73 square meters End Stage Renal Disease: Less than 15 mL/min/1.73 square meters Performed By: #### C MP #### [address] [address] #### GFR #### [place] [address] GFR Non- 71 ml/min/1.73sqm Normal [facility] ([place]) Comment on above: Result Comment: GFR Population mean for , Non- Americans Ages 20-29 = 116 mL/min/1.73 sq.m. Ages 30-39 = 107 mL/min/1.73 sq.m. Ages 40-49 = 99 mL/min/1.73 sq.m. Ages 50-59 = 93 mL/min/1.73 sq.m. Ages 60-69 = 85 mL/min/1.73 sq.m. Ages 70+ = 75 mL/min/1.73 sq.m. Chronic Kidney Disease: Less than 60 mL/min/1.73 square meters End Stage Renal Disease: Less than 15 mL/min/1.73 square meters Performed By: #### C MP #### [address] [address] #### GFR #### [address] [address] .NEUABSon 10-13-2020 Neutrophil, Absolute 3.40 10 3/mcL Normal 2.85-6.16 [facility] ([place] Comment on above: Performed By: #### C ELINOR BEE ANEU, PRO #### [place] [address] [address] CBCon 10-13-2020 Erythrocyte distribution width (RBC) [Ratio] 14.0 % Normal 11.5-14.5 [facility] ([place] Comment on above: Performed By: #### C ELINOR BEE ANEU, PRO #### [place] [address] [address] Hematocrit (Bld) [Volume fraction] 43.0 % Normal 42.0-52.0 [facility] ([place]) Comment on above: Performed By: #### ELINOR CASTELLANOS ANEU, PRO #### [address] [address] Hgb 14.7 G/dL Normal 14.0-18.0 [facility] ([place] Comment on above: Performed By: #### ELINOR CASTELLANOS ANEU, PRO #### [place] [address] [address] MCH (RBC) [Entitic mass] 29.4 pg Normal 27.0-31.2 [facility] ([place] Comment on above: Performed By: #### ELINOR CASTELLANOS ANEU, PRO #### [address] [address] MCHC 34.1 G/dL Normal 31.8-35.4 [facility] ([place] Comment on above: Performed By: #### C ELINOR BEE ANEU, PRO #### [address] [address] MCV (RBC) [Entitic vol] 86.2 fL Normal 80.0-94.0 [facility] ([place] Comment on above: Performed By: #### ELINOR CASTELLANOS, ANEU, PRO #### [address] [address] Platelet 259 10 3/mcL Normal 130-400 [facility] ([place] Comment on above: Performed By: #### C ELINOR BEE ANEU, PRO #### [address] [address] Platelet mean volume (Bld) [Entitic vol] 8.5 fL Normal 7.4-10.4 [facility] ([place] Comment on above: Performed By: #### C ELINOR BEE ANEU, PRO #### [place] [address] [address] RBC 4.99 10 6/mcL Normal 4.04-6.13 [facility] ([place] Comment on above: Performed By: #### C ELINOR BEE ANEU, PRO #### [place] [address] [address] WBC 6.90 10 3/mcL Normal 4.60-10.80 [facility] ([place] Comment on above: Performed By: #### C ELINOR BEE ANEU, PRO #### [address] [address] CMPon 10-13-2020 Albumin Level 4.0 G/dL Normal 3.4-4.8 [facility] ([place] Comment on above: Performed By: #### C MP #### [address] [address] #### GFR #### [address] [address] Albumin/Globulin [Mass ratio] 1.3 {ratio} Normal 1.1-2.5 [facility] ([place] Comment on above: Performed By: #### C MP #### [address] [address] #### GFR #### [address] [address] ALP [Catalytic activity/Vol] 82 U/L Normal 40-135 [facility] ([place] Comment on above: Performed By: #### C MP #### [place] [id number] #### GFR #### [address] [address] ALT [Catalytic activity/Vol] 32 U/L Normal 16-63 [facility] ([place] Comment on above: Performed By: #### C MP #### [address] [address] #### GFR #### [address] [address] AST [Catalytic activity/Vol] 13 U/L Normal 10-40 [facility] ([place] Comment on above: Performed By: #### C MP #### [address] [address] #### GFR #### [address] [address] Bili Total 0.4 mg/dL Normal 0.2-1.0 [facility] ([place] Comment on above: Result Comment: Use of this assay is not recommended for patients undergoing treatment with eltrombopag due to the potential for falsely elevated results. Performed By: #### C MP #### [place] [address] #### GFR #### [address] [address] BUN/Creatinine Ratio 19 ratio Normal 7-27 [facility] ([place]) Comment on above: Performed By: #### C MP #### [address] [address] #### GFR #### [address] [address] Calcium [Mass/Vol] 9.8 mg/dL Normal 8.4-10.2 [facility] ([place]) Comment on above: Performed By: #### C MP #### [address] [address] #### GFR #### [place] [id number] Chloride [Moles/Vol] 101 mmol/L Normal 98-107 [facility] ([place]) Comment on above: Performed By: #### C MP #### [place] [address] #### GFR #### [address] [address] CO2 [Moles/Vol] 32 mmol/L High 23-31 [facility] ([place] Comment on above: Performed By: #### C MP #### [address] [address] #### GFR #### [address] [address] Creatinine [Mass/Vol] 1.03 mg/dL Normal 0.70-1.30 [facility] ([place]) Comment on above: Performed By: #### C MP #### [address] [address] #### GFR #### [address] [address] Electrolyte Balance 4.0 mEq/L Normal [facility] ([place] Comment on above: Performed By: #### C MP #### [address] [address] #### GFR #### [address] [address] Globulin 3.1 G/dL Normal [facility] ([place]) Comment on above: Performed By: #### C MP #### [address] [address] #### GFR #### [address] [address] Glucose [Mass/Vol] 152 mg/dL High 83-110 [facility] ([place]) Comment on above: Performed By: #### C MP #### [address] [address] #### GFR #### [address] [address] Potassium [Moles/Vol] 4.7 mmol/L Normal 3.5-5.1 [facility] ([place]) Comment on above: Performed By: #### C MP #### [address] [address] #### GFR #### [address] [address] Sodium [Moles/Vol] 137 mmol/L Normal 136-145 [facility] ([place]) Comment on above: Performed By: #### C MP #### [address] [address] #### GFR #### [address] [address] Total Protein 7.1 G/dL Normal 6.4-8.2 [facility] ([place] Comment on above: Performed By: #### C MP #### [address] [address] #### GFR #### [address] [address] Urea nitrogen [Mass/Vol] 20 mg/dL High 7-18 [facility] ([place] Comment on above: Performed By: #### C MP #### [address] [address] #### GFR #### [address] [address] LIPIDon 10-13-2020 Cholesterol [Mass/Vol] 129 mg/dL Normal 0-200 [facility] ([place] Comment on above: Result Comment: Chol esterol Reference Interval: Less than 200 Desirable 200-239 Borderline high risk 240 and above High risk Performed By: #### L IPID #### [address] [address] Cholesterol in HDL [Mass/Vol] 45 mg/dL Normal 40-60 [facility] ([place] Comment on above: Performed By: #### L IPID #### [address] [address] Cholesterol in LDL [Mass/Vol] 56 mg/dL Normal 0-130 [facility] ([place] Comment on above: Performed By: #### L IPID #### [address] [address] Triglyceride [Mass/Vol] 141 mg/dL Normal 0-150 [facility] ([place] Comment on above: Result Comment: Trig lyceride Reference Interval: Less than 150 Normal 150-199 Borderline high risk 200-499 High risk 500 or higher Very high risk Performed By: #### L IPID #### [address] [address] PROon 10-13-2020 INR Coag (PPP) [Relative time] 0.9 {INR} Normal 0.9-1.2 [facility] ([place] Comment on above: Result Comment: Jovanni dard Dose 2.0 - 3.0 High Dose 2.5 - 3.5 The recommended therapeutic range for oral anticoagulant therapy is: LOW RISK: Prophylaxis of venous thrombosis INR: 2.0 - 3.0 Treatment of pulmonary embolism 2.0 - 3.0 Prevention of systemic embolism 2.0 - 3.0 HIGH RISK: Mechanical prosthetic valves 2.5 - 3.5 Performed By: #### C BC, ELINOR ANEU, PRO #### [place] [address] [address] PT Coag (PPP) [Time] 10.5 s Normal 9.7-14.3 [facility] ([place] Comment on above: Performed By: #### C BC, ELINOR, ANEU, PRO #### [address] [address] NM MYOCARDIAL SPECT STRESS/R ESTon 09-25-2020 NM MYOCARDIAL SPECT STRESS/REST ORIGINAL NM MYOCARDIAL SPECT STRESS/REST CLINICAL STATEMENT:SOB TECHNIQUE: Stress Protocol:Nelson Time Exercised:6 min 48 sec Predicted Max HR:149 Max HR Achieved:133 Percent Max HR:89 Peak Systolic BP:230 Rate-Pressure product: 29579 Radiopharmaceutical(rest) : Tc-99m Sestamibi IV Dose:10.7 mCi Radiopharmaceutical(stres s): Tc-99m Sestamibi IV Dose:30.5 mCi SPECT acquisition: SPECT reconstruction and reorientation into short axis, vertical and horizontal long axis planes Quantitative LVEF assessment COMPARISON:2016 REPORT:Overall fair quality study. There is mild motion noted on review of raw images. Left ventricular ejection fraction is 45%, end-diastolic volume is 101 mL, TID ratio is 1.03. There is medium sized mild to moderate intensity predominantly fixed defect noted in the mid and basal inferior wall. There is no significant reversible defects noted. IMPRESSION: Fixed inferior wall defect noted that may represent prior infarction. No clear evidence of ischemia. Left ventricular ejection fraction of 45%. Consider evaluation of the ejection fraction with an echocardiogram. ECG portion will be dictated separately. Interpreted By: Garrett Bond Preliminary Report By: Garrett Bond Electronically Signed By: Garrett Bond Dictated Date: 09/25/2020 5:08:10 PM Prelim Date: 09/25/2020 5:08:10 PM Sign Date: 09/25/2020 5:12:56 PM Ordering Provider:Tatianna Ingram [facility] ([place]) *POC GLUCOSE BATTERYon 08-15 *POC SAMPLE TYPE Capillary Blood Normal [facility] Glucose mass conc 134 mg/dL High 70-99 [facility] Comment on above: Result Comment: Amanda CONKLIN per RN: PATIENT TYPE *POC GLUCOSE BATTERYon 07-22 *POC SAMPLE TYPE Capillary Blood Normal [facility] Glucose mass conc 147 mg/dL High 70-99 [facility] Comment on above: Result Comment: Noti fied RNread backNo BRADY per RN: PATIENT TYPE Platelet Count Batteryon Platelet mean volume Auto Entitic volume (Bld) 9.9 fL Normal 9.4-12.[address] [facility] Comment on above: Performed By: #### H EMORADHA, CA, CHM7, IPB, MGO ####[facility] [place], [place] [id number] [address] [place] [address] Platelets Auto #/vol (Bld) 293 10*3/uL Normal 163-[address] [facility] Comment on above: Performed By: #### H EMOGC, CA, CHM7, IPB, MGO ####[facility] [place] [id number] [place] [address] *POC GLUCOSE BATTERYon 07-21 *POC SAMPLE TYPE Capillary Blood Normal [facility] Glucose mass conc 123 mg/dL High 70-99 [facility] Comment on above: Result Comment: No B RAVE per RN: PATIENT TYPE *POC SAMPLE TYPE Capillary Blood Normal [facility] Glucose mass conc 109 mg/dL High 70-99 [facility] Comment on above: Result Comment: No B RAVE per RN: PATIENT TYPE *POC SAMPLE TYPE Capillary Blood Normal [facility] Glucose mass conc 96 mg/dL Normal 70-99 [facility] Comment on above: Result Comment: Noti diony RNread backNo BRAVE per RN: PATIENT TYPE *POC SAMPLE TYPE Capillary Blood Normal [facility] Glucose mass conc 110 mg/dL High 70-99 [facility] Comment on above: Result Comment: No B RAVE per RN: PATIENT TYPE *POC SAMPLE TYPE Capillary Blood Normal [facility] Glucose mass conc 118 mg/dL High 70-99 [facility] Comment on above: Result Comment: Sheng vora RNread backNo BRAVE per RN: PATIENT TYPE 25-OH Vitamin D Totalon 06-0 25-OH Vitamin D Total 29.8 ng/mL Low 30.0-100.0 [facility] Comment on above: Result Comment: <10 Edkjvbnuia03-47 [id number] Optimal Level>100 Possible Toxicity Performed By: #### C BCDFC, PTPTT, CA, CHM7, CRP, HFP, IPB, MGO, PALB, A1CB, D25OH ####[facility] [place] [id number] [place], [place] [id number] [address] [place] [address] C Reactive Proteinon 018 CRP mass conc 17.30 mg/L High <10.[address] [facility] Comment on above: Performed By: #### C BCDFC, PTPTT, CA, CHM7, CRP, HFP, IPB, MGO, PALB, A1CB, D25OH ####[facility] [place] [address] CBC,PLATELET,DIFFERENTIAL - CCLon 07-21-2017 Abs Baso 0.04 K/uL Normal <0.[address] [facility] Comment on above: Performed By: #### X M ####[facility] [place], [place] [id number] [address] [place] [address] Abs Eos 0.06 K/uL Normal <0.[address] [facility] Comment on above: Performed By: #### X M ####[facility] [place], [place] [id number] [address] [place] [address] Abs Taylor 0.74 K/uL Normal 0.30-0.[address] [facility] Comment on above: Performed By: #### X M ####[facility] [place], [place] [address] [address] [place] [address] Basophils/100 WBC Auto (Bld) 0.3 % Normal [facility] Comment on above: Performed By: #### X M ####[facility] [place], [place] [id number] [address] [place] [address] DIFFERENTIAL TYPE Electronic Differential Normal [facility] Comment on above: Performed By: #### X M ####[facility] [place], [place] [id number] [address] [place] [address] Eosinophils/100 WBC Auto (Bld) 0.5 % Normal [facility] Comment on above: Performed By: #### X M ####[facility] [place], [place] [id number] [address] [place] [address] Hematocrit Auto Volume Fraction (Bld) 32.6 % Low 40.1-51.[address] [facility] Comment on above: Performed By: #### X M ####[facility] [place] [address], [place] [address] [place], [place] [phone] [address] [place] [address] Hemoglobin mass conc (Bld) 10.2 g/dL Low 13.7-17.[address] [facility] Comment on above: Performed By: #### X M ####[facility] [place] [address], [place] [address] [place], [place] [id number] [address] [place] [address] IMMATURE GRANS % 0.5 % Normal [facility] Comment on above: Performed By: #### X M ####[facility] [place] [address], [address] [place] [address] IMMATURE GRANS ABSOLUTE 0.07 K/uL High <0.04 [facility] Comment on above: Performed By: #### X M ####[facility] [place] [id number] [place], [place] [id number] [address] [place] [address] Lymphocytes Auto #/vol (Bld) 1.73 10*3/uL Normal 1.32-3.[address] [facility] Comment on above: Performed By: #### X M ####[facility] [place], [place] [address] [address] [place] [address] Lymphocytes/100 WBC Auto (Bld) 13.4 % Normal [facility] Comment on above: Performed By: #### X M ####[facility] [place] [id number] [place], [place] [id number] [address] [place] [address] MCV Auto Entitic volume (RBC) 86.7 fL Normal 79.0-92.[address] [facility] Comment on above: Performed By: #### X M ####[facility] [place] [address], [place] [address]MokpxdSheltering Arms Hospital[address] [place] [address] Mean Cell Hgb 27.1 pg Normal 25.7-32.[address] [facility] Comment on above: Performed By: #### X M ####[facility] [place] [address], [place] [address]HrhdyfSheltering Arms Hospital[address] [place] [address] Mean Cell Hgb Conc 31.3 g/dL Low 32.3-36.5 [facility] Comment on above: Performed By: #### X M ####[facility] [place] [address], [place] [address]XthfobSheltering Arms Hospital[address] [place] [address] Monocytes/100 WBC Auto (Bld) 5.7 % Normal [facility] Comment on above: Performed By: #### X M ####[facility] [place] [address], [place] [address] [place], [place] [phone] [address] [place] [address] NEUTROPHIL SEGMENTED 79.6 % Normal [facility] Comment on above: Performed By: #### X M ####[facility] [place] [address], [place] [address]SwnhyfSheltering Arms Hospital[address] [place] [address] Nucleated RBC #/vol (Bld) 0.0 /100 WBC Normal 0.0-0.[address] [facility] Comment on above: Performed By: #### X M ####[facility] [place] [id number] Arms Hospital[address] [place] [address] Platelet mean volume Auto Entitic volume (Bld) 9.7 fL Normal 9.4-12.[address] [facility] Comment on above: Performed By: #### X M ####[facility] [place], [place] [address] [address] [place] [address] Platelets Auto #/vol (Bld) 317 10*3/uL Normal 163-[address] [facility] Comment on above: Performed By: #### X M ####[facility] [place] [address], [address] [place] [address] RBC Auto #/vol (Bld) 3.76 10*6/uL Low 4.63-6.08 [facility] Comment on above: Performed By: #### X M ####[facility] [place], [place] [id number] [address] [place] [address] RBC Auto #/vol (Bld) 14.0 % Normal 11.6-14.[address] [facility] Comment on above: Performed By: #### X M ####[facility] [place], [place] [id number] [address] [place] [address] SEGS + Bands,Absolute 10.31 K/uL High 1.78-5.38 [facility] Comment on above: Performed By: #### X M ####[facility] [place], [place] [address] [address] [place] [address] WBC Auto #/vol (Bld) 12.95 10*3/uL High 4.23-9.07 [facility] Comment on above: Performed By: #### X M ####[facility] [place], [place] [id number] [address] [place] [address] CHEM 7on 07-21-2017 Anion gap 3 molar conc 14 mmol/L Normal 7-17 [facility] Comment on above: Performed By: #### C BCDFC, PTPTT, CA, CHM7, CRP, HFP, IPB, MGO, PALB, A1CB, D25OH ####[facility] [place] [address], [place] [id number] [place], [place] [phone] [address] [place] [address] Chloride molar conc 104 mmol/L Normal 98-[address] [facility] Comment on above: Performed By: #### C BCDFC, PTPTT, CA, CHM7, CRP, HFP, IPB, MGO, PALB, A1CB, D25OH ####[facility] [place], [place] [address] [address] [place] [address] CO2 molar conc 23 mmol/L Normal 22-[address] [facility] Comment on above: Performed By: #### C BCDFC, PTPTT, CA, CHM7, CRP, HFP, IPB, MGO, PALB, A1CB, D25OH ####[facility] [place] [address], [address] [place] [address] Creatinine mass conc 0.74 mg/dL Normal 0.70-1.[address] [facility] Comment on above: Performed By: #### C BCDFC, PTPTT, CA, CHM7, CRP, HFP, IPB, MGO, PALB, A1CB, D25OH ####[facility] [place], [place] [address] [place] [address] Est GFR, >60 Normal >[address] [facility] Comment on above: Performed By: #### C BCDFC, PTPTT, CA, CHM7, CRP, HFP, IPB, MGO, PALB, A1CB, D25OH ####[facility] [place], [place] [address] [place] [address] Est GFR,non >60 Normal >[address] [facility] Comment on above: Performed By: #### C BCDFC, PTPTT, CA, CHM7, CRP, HFP, IPB, MGO, PALB, A1CB, D25OH ####[facility] [place], [place] [address] [place] [address] Glucose mass conc 127 mg/dL High 70-99 [facility] Comment on above: Performed By: #### C BCDFC, PTPTT, CA, CHM7, CRP, HFP, IPB, MGO, PALB, A1CB, D25OH ####[facility] [place], [place] [id number] [place] [address] Osmolality 289 mOsm/kg Normal 278-[address] [facility] Comment on above: Performed By: #### C BCDFC, PTPTT, CA, CHM7, CRP, HFP, IPB, MGO, PALB, A1CB, D25OH ####[facility] [place], [place] [address] [place] [address] Potassium molar conc 4.1 mmol/L Normal 3.5-5.[address] [facility] Comment on above: Performed By: #### C BCDFC, PTPTT, CA, CHM7, CRP, HFP, IPB, MGO, PALB, A1CB, D25OH ####[facility] [place], [place] [id number] [place] [address] Sodium molar conc 137 mmol/L Normal 133-143 [facility] Comment on above: Performed By: #### C BCDFC, PTPTT, CA, CHM7, CRP, HFP, IPB, MGO, PALB, A1CB, D25OH ####[facility] [place] [address], [place] [id number] [place], [place] [id number] [address] [place] [address] Urea nitrogen mass conc 13 mg/dL Normal 7-22 [facility] Comment on above: Performed By: #### C BCDFC, PTPTT, CA, CHM7, CRP, HFP, IPB, MGO, PALB, A1CB, D25OH ####[facility] [place] [address], [address] [place] [address] Urea nitrogen/Creatinine mass ratio 18 mg/mg Normal [facility] Comment on above: Performed By: #### C BCDFC, PTPTT, CA, CHM7, CRP, HFP, IPB, MGO, PALB, A1CB, D25OH ####[facility] [place] [address], [address] [place] [address] Calciumon 07-21-2017 Calcium mass conc 8.9 mg/dL Normal 8.6-10.5 [facility] Comment on above: Performed By: #### C BCDFC, PTPTT, CA, CHM7, CRP, HFP, IPB, MGO, PALB, A1CB, D25OH ####[facility] [place] [address], [address] [place] [address] HEPATIC FUNCTION PANELon Albumin mass conc 3.6 g/dL Normal 3.5-5.0 [facility] Comment on above: Performed By: #### C BCDFC, PTPTT, CA, CHM7, CRP, HFP, IPB, MGO, PALB, A1CB, D25OH ####[facility] [place] [address], [place] [address]JhdudvSheltering Arms Hospital[address] [place] [address]806 ALP enzyme act/vol 78 U/L Normal 32-126 [facility] Comment on above: Performed By: #### C BCDFC, PTPTT, CA, CHM7, CRP, HFP, IPB, MGO, PALB, A1CB, D25OH ####[facility] [place] [id number] [place], [place] [id number] [address] [place] [address] 89439 ALT enzyme act/vol 13 U/L Normal 10-52 [facility] Comment on above: Performed By: #### C BCDFC, PTPTT, CA, CHM7, CRP, HFP, IPB, MGO, PALB, A1CB, D25OH ####[facility] [place], [place] [id number] [address] [place] [address] AST enzyme act/vol 11 U/L Low 14-40 [facility] Comment on above: Performed By: #### C BCDFC, PTPTT, CA, CHM7, CRP, HFP, IPB, MGO, PALB, A1CB, D25OH ####[facility] [place], [place] [id number] [address] [place] [address] Bilirubin mass conc 0.3 mg/dL Normal <1.[address] [facility] Comment on above: Performed By: #### C BCDFC, PTPTT, CA, CHM7, CRP, HFP, IPB, MGO, PALB, A1CB, D25OH ####[facility] [place] [id number] [place], [place] [id number] [address] [place] [address]70 Bilirubin.direct mass conc 0.1 mg/dL Normal <0.[address] [facility] Comment on above: Performed By: #### C BCDFC, PTPTT, CA, CHM7, CRP, HFP, IPB, MGO, PALB, A1CB, D25OH ####[facility] [place] [address], [place] [id number] [place], [place] [id number] [address] [place] [address] 34279 Protein mass conc 6.2 g/dL Low 6.4-8.3 [facility] Comment on above: Performed By: #### C BCDFC, PTPTT, CA, CHM7, CRP, HFP, IPB, MGO, PALB, A1CB, D25OH ####[facility] [place] [address], [place] [id number] [place], [place] [phone] [address] [place] [address] Hemoglobin A1con 07-21-2017 Glucose mass conc 134 mg/dL Normal [facility] Comment on above: Performed By: #### C BCDFC, PTPTT, CA, CHM7, CRP, HFP, IPB, MGO, PALB, A1CB, D25OH ####[facility] [place] [address], [address] [place] [address]12 Hemoglobin A1c/Hemoglobin.total mass fraction (Bld) 6.3 % High 4.7-5.[address] [facility] Comment on above: Performed By: #### C BCDFC, PTPTT, CA, CHM7, CRP, HFP, IPB, MGO, PALB, A1CB, D25OH ####[facility] [place] [address], [place] [id number] [place], [place] [id number] [address] [place] [address] 12893 Inorganic Phosphateon 2017 Inorg Phosphate 2.9 mg/dL Normal 2.2-4.6 [facility] Comment on above: Performed By: #### C BCDFC, PTPTT, CA, CHM7, CRP, HFP, IPB, MGO, PALB, A1CB, D25OH ####[facility] [place] [id number] Arms Hospital[address] [place] [address] Magnesiumon 07-21-2017 Magnesium mass conc 1.7 mg/dL Normal 1.6-2.[address] [facility] Comment on above: Performed By: #### C BCDFC, PTPTT, CA, CHM7, CRP, HFP, IPB, MGO, PALB, A1CB, D25OH ####[facility] [place] [id number] Arms Hospital[address] [place] [address] PT*PTTon 07-21-2017 aPTT Coag time (Bld) 32.4 s Normal 24.0-34.[address] [facility] Comment on above: Performed By: #### C BCDFC, PTPTT, CA, CHM7, CRP, HFP, IPB, MGO, PALB, A1CB, D25OH ####[facility] [place] [id number] [place], [place] [phone] [address] [place] [address] INR Coag RelTime (PPP) 1.0 {INR} Normal 0.9-1.1 [facility] Comment on above: Performed By: #### C BCDFC, PTPTT, CA, CHM7, CRP, HFP, IPB, MGO, PALB, A1CB, D25OH ####[facility] [place] [id number] Arms Hospital[address] [place] [address] Prothrombin time (PT) Coag time (PPP) 13.4 s Normal 11.9-14.[address] [facility] Comment on above: Performed By: #### C BCDFC, PTPTT, CA, CHM7, CRP, HFP, IPB, MGO, PALB, A1CB, D25OH ####[facility] [place], [place] [id number] [address] [place] [address] Prealbuminon 07-21-2017 Prealbumin mass conc 21 mg/dL Normal 17-[address] [facility] Comment on above: Performed By: #### C BCDFC, PTPTT, CA, CHM7, CRP, HFP, IPB, MGO, PALB, A1CB, D25OH ####[facility] [place], [place] [id number] [address] [place] [address] *POC GLUCOSE BATTERYon 06-25 *POC SAMPLE TYPE Capillary Blood Normal [facility] Glucose mass conc 229 mg/dL High 70-99 [facility] Comment on above: Result Comment: No B RAVE per RN: PATIENT TYPE *POC GLUCOSE BATTERYon 06-24 *POC SAMPLE TYPE Capillary Blood Normal [facility] Glucose mass conc 158 mg/dL High 70-99 [facility] Comment on above: Result Comment: No B RAVE per RN: PATIENT TYPE Platelet Count Batteryon Platelet mean volume Auto Entitic volume (Bld) 9.7 fL Normal 9.4-12.[address] [facility] Comment on above: Performed By: #### X M ####[facility] [place], [place] [id number] [address] [place] [address] Platelets Auto #/vol (Bld) 276 10*3/uL Normal 163-[address] [facility] Comment on above: Performed By: #### X M ####[facility] [place], [place] [id number] [address] [place] [address] *POC GLUCOSE BATTERYon 06-23 *POC SAMPLE TYPE Capillary Blood Normal [facility] Glucose mass conc 152 mg/dL High 70-99 [facility] Comment on above: Result Comment: Noti fied RNread Bibi ABREU per RN: PATIENT TYPE *POC SAMPLE TYPE Capillary Blood Normal [facility] Glucose mass conc 163 mg/dL High 70-99 [facility] Comment on above: Result Comment: No B RAVE per RN: PATIENT TYPE *POC SAMPLE TYPE Capillary Blood Normal [facility] Glucose mass conc 122 mg/dL High 70-99 [facility] Comment on above: Result Comment: No B RAVE per RN: PATIENT TYPE *POC SAMPLE TYPE Capillary Blood Normal [facility] Glucose mass conc 122 mg/dL High 70-99 [facility] Comment on above: Result Comment: No B RAVE per RN: PATIENT TYPE *POC GLUCOSE BATTERYon 06-22 *POC SAMPLE TYPE Capillary Blood Normal [facility] Glucose mass conc 173 mg/dL High 70-99 [facility] Comment on above: Result Comment: No B RAVE per RN: PATIENT TYPE *POC SAMPLE TYPE Capillary Blood Normal [facility] Glucose mass conc 131 mg/dL High 70-99 [facility] Comment on above: Result Comment: No B RAVE per RN: PATIENT TYPE *POC SAMPLE TYPE Capillary Blood Normal [facility] Glucose mass conc 179 mg/dL High 70-99 [facility] Comment on above: Result Comment: No B RAVE per RN: PATIENT TYPE Glucose mass conc 168 mg/dL High 70-99 [facility] Comment on above: Result Comment: No B RAVE per RN: PATIENT TYPE *POC SAMPLE TYPE Capillary Blood Normal [facility] Glucose mass conc 163 mg/dL High 70-99 [facility] Comment on above: Result Comment: No B RAVE per RN: PATIENT TYPE CHEM 706-22-2017 Anion gap 3 molar conc 10 mmol/L Normal 09-01 [facility] Comment on above: Performed By: #### [facility] [place] ####[facility] [place] [address] [place] [address] 85496 Chloride molar conc 103 mmol/L Normal 98-[address] [facility] Comment on above: Performed By: #### INDIO KELLER7 ####[facility] [place], [place] [id number] [address] [place] [address] 55096 CO2 molar conc 26 mmol/L Normal 22-[address] [facility] Comment on above: Performed By: #### MIREYA KELLER ####[facility] [place], [place] [address] [address] [place] [address] 88265 Creatinine mass conc 0.76 mg/dL Normal 0.70-1.[address] [facility] Comment on above: Performed By: #### MIREYA KELLER ####[facility] [place], [place] [address] [address] [place] [address] 45817 Est GFR, >60 Normal >[address] [facility] Comment on above: Performed By: #### MIREYA KELLER ####[facility] [place], [place] [address] [address] [place] [address] 72782 Est GFR,non >60 Normal >[address] [facility] Comment on above: Performed By: #### MIREYA KELLER ####[facility] [place], [place] [address] [address] [place] [address] 33018 Glucose mass conc 134 mg/dL High 70-99 [facility] Comment on above: Performed By: #### MIREYA KELLER ####[facility] [place], [place] [address] [address] [place] [address] Osmolality 288 mOsm/kg Normal 278-[address] [facility] Comment on above: Performed By: #### INDIO KELLER7 ####[facility] [place], [place] [id number] [address] [place] [address] Potassium molar conc 4.4 mmol/L Normal 3.5-5.[address] [facility] Comment on above: Performed By: #### MIREYA KELLER ####[facility] [place], [place] [address] [address] [place] [address] Sodium molar conc 135 mmol/L Normal 133-143 [facility] Comment on above: Performed By: #### MIREYA KELLER ####[facility] [place], [place] [id number] [address] [place] [address] Urea nitrogen mass conc 17 mg/dL Normal 7-22 [facility] Comment on above: Performed By: #### MIREYA KELLER ####[facility] [place], [place] [address] [address] [place] [address] Urea nitrogen/Creatinine mass ratio 22 mg/mg Normal [facility] Comment on above: Performed By: #### MIREYA KELLER ####[facility] [place], [place] [id number] [address] [place] [address] HEMOGRAM (CBC and Platelet)o n 06-22-2017 Hematocrit Auto Volume Fraction (Bld) 22.0 % Low 40.1-51.[address] [facility] Comment on above: Performed By: #### MIREYA KELLER ####[facility] [place] [address]04 Hemoglobin mass conc (Bld) 7.2 g/dL Low 13.7-17.[address] [facility] Comment on above: Performed By: #### MIREYA KELLER ####[facility] [place] [address], [address] [place] [address] MCV Auto Entitic volume (RBC) 90.2 fL Normal 79.0-92.[address] [facility] Comment on above: Performed By: #### MIREYA KELLER ####[facility] [place], [place] [address] [address] [place] [address] Mean Cell Hgb 29.5 pg Normal 25.7-32.[address] [facility] Comment on above: Performed By: #### MIREYA KELLER ####[facility] [place] [address], [address] [place] [address] Mean Cell Hgb Conc 32.7 g/dL Normal 32.3-36.5 [facility] Comment on above: Performed By: #### MIREYA KELLER ####[facility] [place] [address], [address] [place] [address] Nucleated RBC #/vol (Bld) 0.3 /100 WBC High 0.0-0.[address] [facility] Comment on above: Performed By: #### MIREYA KELLER ####[facility] [place], [place] [address] [address] [place] [address] Platelet mean volume Auto Entitic volume (Bld) 10.1 fL Normal 9.4-12.[address] [facility] Comment on above: Performed By: #### Gurvinder WALDRON, REYNALDOM7 ####[facility] [place] [address], [place] [id number] [place], [place] [id number] [address] [place] [address] 98943 Platelets Auto #/vol (Bld) 235 10*3/uL Normal 163-[address] [facility] Comment on above: Performed By: #### H CHIVO, INDIO7 ####[facility] [place], [place] [address] [address] [place] [address] 18957 RBC Auto #/vol (Bld) 2.44 10*6/uL Low 4.63-6.08 [facility] Comment on above: Performed By: #### Gurvinder WALDRON, INDIO7 ####[facility] [place], [place] [address] [address] [place] [address] 27234 RBC Auto #/vol (Bld) 13.5 % Normal 11.6-14.[address] [facility] Comment on above: Performed By: #### Gurvinder WALDRON, MIREYA ####[facility] [place], [place] [address] [address] [place] [address] 17598 WBC Auto #/vol (Bld) 7.40 10*3/uL Normal 4.23-9.07 [facility] Comment on above: Performed By: #### H CHIVO, CHM7 ####[facility] [place], [place] [address] [address] [place] [address] 13618 Type and Laura 06-22-2017 Type and Cross Negative Normal [facility] Comment on above: Performed By: #### X M ####[facility] [place], [place] [address] [address] [place] [address] 95531 *POC GLUCOSE BATTERYon 06-21 *POC SAMPLE TYPE Capillary Blood Normal [facility] Glucose mass conc 143 mg/dL High 70-99 [facility] Comment on above: Result Comment: No B RAVE per RN: PATIENT TYPE *POC SAMPLE TYPE Capillary Blood Normal [facility] Glucose mass conc 155 mg/dL High 70-99 [facility] Comment on above: Result Comment: No B RAVE per RN: PATIENT TYPE Glucose mass conc 237 mg/dL High 70-99 [facility] Comment on above: Result Comment: No B RAVE per RN: PATIENT TYPE MRI SHOULDER LEFT WITHOUT CO NTRASTon 06-21-2017 MRI SHOULDER LEFT WITHOUT CONTRAST EXAM: MRI SHOULDER LEFT WITHOUT CONTRAST, 06/21/2017 05:03 AMCLINICAL INDICATIONS: Shoulder pain, acute, persistent, xray and examnonspecific; RELEVANT CLINICAL HISTORY:COMPARISON: Plain film radiographs 06/18/2017TECHNIQUE: MR scanning of the shoulder was performed using multiple pulsesequences including T1 and fluid sensitive coronal oblique, proton-density andT2-weighted sagittal oblique, proton density and T2-weighted axial, and 3-DGRE axial images.FINDINGS: RC/Biceps Tendons: No significant muscle atrophy.There is tendinosis of the infraspinatus tendon with a partial tear near thecritical zone. In addition there is a partial interstitial tear near themusculotendinous junction. There is tendinosis of the supraspinatus tendonwith a small partial tear of the anterior fibers at the footplate. There isminimal muscle edema. The teres minor muscle and tendon are intact. There is asmall partial tear of the subscapularis at the insertion the biceps tendon isintact.There is diffuse abnormal signal within the anterior fibers of the deltoidmuscle with a partial tear with hematoma formation at the insertion. There issurrounding hematoma formation and subcutaneous edema. There is abnormalsignal within the trapezius muscle with hematoma formation and near theclavicular insertion likely related to a partial tear.AC Joints:AC joint is aligned with osteoarthritis.GH Joint and Labrum:The glenohumeral joint is aligned. There is a trace amount of joint fluid. The superior labrum is degenerated. There are tears of the anterior andposterior labrum. Bones:Bone marrow signal intensity is age appropriate.The suprascapular notch, spinoglenoid notch and quadrilateral spacedemonstrate no space-occupying lesions.Soft Tissue: There is no obvious soft tissue swelling.IMPRESSION:Diffu se subcutaneous edemaTendinosis of the infraspinatus tendon with a partial articular sided tearnear the critical zone and a small linear interstitial tear at themusculotendinous junctionTendinosis of the supraspinatus tendon with a focal articular sided tear ofthe anterior fibers at the footplate. In addition there is mild diffuse edema.Partial tear of the subscapularis at the insertionExtensive edema throughout the deltoid predominantly the anterior fibers witha partial tear with hematoma formation.Diffuse edema within the trapezius muscle with a likely partial tear near theclavicle insertion with hematoma formation.AC joint osteoarthritisTrace glenohumeral joint effusionDegeneration of the superior labrum and tears of the anterior and posteriorlabrumElectronic ally Signed By: Kaelyn Singh DO on 06/21/2017 9:[address] [facility] Platelet Count Batteryon Platelet mean volume Auto Entitic volume (Bld) 10.6 fL Normal 9.4-12.[address] [facility] Comment on above: Performed By: #### Destinee BCDFJ ####Sid [facility]TishaLakehealth [facility]wood [facility] Center[address] [place], [place] [address] Platelets Auto #/vol (Bld) 197 10*3/uL Normal 163-[address] [facility] Comment on above: Performed By: #### Destinee BCDFAna ####Sid [facility]TishaLake[facility] Center[address] [place], [place] [address] *POC GLUCOSE BATTERYon 06-20 *POC SAMPLE TYPE Capillary Blood Normal [facility] Glucose mass conc 153 mg/dL High 70-99 [facility] Comment on above: Result Comment: No Zhao CONKLIN per RN: PATIENT TYPE *POC SAMPLE TYPE Capillary Blood Normal [facility] Glucose mass conc 175 mg/dL High 70-99 [facility] Comment on above: Result Comment: No B RAVE per RN: PATIENT TYPE *POC SAMPLE TYPE Capillary Blood Normal [facility] Glucose mass conc 257 mg/dL High 70-99 [facility] Comment on above: Result Comment: No B RAVE per RN: PATIENT TYPE *POC SAMPLE TYPE Capillary Blood Normal [facility] Glucose mass conc 135 mg/dL High 70-99 [facility] Comment on above: Result Comment: No B RAVE per RN: PATIENT TYPE *POC SAMPLE TYPE Capillary Blood Normal [facility] Glucose mass conc 214 mg/dL High 70-99 [facility] Comment on above: Result Comment: No B RAVE per RN: PATIENT TYPE CHEM 06-20-2017 Anion gap 3 molar conc 11 mmol/L Normal 7-17 [facility] Comment on above: Performed By: #### C SHAMEKA ####Sid SANDERS, [facility] [place] [address] 14405 Chloride molar conc 105 mmol/L Normal 98-[address] [facility] Comment on above: Performed By: #### C SHAMEKA ####Sid SANDERSLake[facility] [place] [address] 47051 CO2 molar conc 25 mmol/L Normal 22-[address] [facility] Comment on above: Performed By: #### Destinee MYLES ####Sid SANDERSLake[facility] Center[address] [place] [address] 13955 Creatinine mass conc 0.75 mg/dL Normal 0.70-1.[address] [facility] Comment on above: Performed By: #### C SHAMEKA ####Sid SANDERS, [facility] [place] [address] 78180 Est GFR, >60 Normal >[address] [facility] Comment on above: Performed By: #### C BCALBERTOJ ####Sid SANDERS, [facility] [place] [address] 62855 Est GFR,non >60 Normal >[address] [facility] Comment on above: Performed By: #### C BCDFJ ####Sid CCCT, [facility] [place] [address] 60953 Glucose mass conc 129 mg/dL High 70-99 [facility] Comment on above: Performed By: #### C CRISTALDFJ ####Sid SANDERS, [facility] [place] [address] 69598 Osmolality 290 mOsm/kg Normal 278-[address] [facility] Comment on above: Performed By: #### C BCDFJ ####Sid SANDERS, [facility] [place] [address] 22944 Potassium molar conc 4.1 mmol/L Normal 3.5-5.[address] [facility] Comment on above: Performed By: #### C AVRILJ ####Sid SANDERS, [facility] [place] [address] 04563 Sodium molar conc 137 mmol/L Normal 133-143 [facility] Comment on above: Performed By: #### C AVRILJ ####Sid SANDERSLake[facility] [place] [address] 74017 Urea nitrogen mass conc 14 mg/dL Normal 7-22 [facility] Comment on above: Performed By: #### C AVRILJ ####Sid SANDERS, [facility] [place] [address] 22689 Urea nitrogen/Creatinine mass ratio 19 mg/mg Normal [facility] Comment on above: Performed By: #### C BCDFJ ####Sid CCCTisha, [facility] [place] [address] 49367 Calciumon 06-20-2017 Calcium mass conc 8.1 mg/dL Low 8.6-10.5 [facility] Comment on above: Performed By: #### C CRISTALDFJ ####Sid SANDERS, [facility] [place] [address] 03757 Inorganic Phosphateon 2017 Inorg Phosphate 2.6 mg/dL Normal 2.2-4.6 [facility] Comment on above: Performed By: #### Destinee MACKENZIEJ ####Sid SANDERS, [facility] [place] [address] Magnesiumon 06-20-2017 Magnesium mass conc 1.9 mg/dL Normal 1.6-2.[address] [facility] Comment on above: Performed By: #### Destinee MACKENZIEJ ####Sid SANDERS, [facility] [place] [address] *POC GLUCOSE BATTERYon 06-19 *POC SAMPLE TYPE Capillary Blood Normal [facility] Glucose mass conc 138 mg/dL High 70-[address] [place] [address] Comment on above: Result Comment: No B RAVE per RN: PATIENT TYPE *POC SAMPLE TYPE Capillary Blood Normal [facility] Glucose mass conc 185 mg/dL High 70-99 [facility] Comment on above: Result Comment: No B RAVE per RN: PATIENT TYPE *POC SAMPLE TYPE Capillary Blood Normal [facility] Glucose mass conc 176 mg/dL High 70-99 [facility] Comment on above: Result Comment: No B RAVE per RN: PATIENT TYPE CHEM 7on 06-19-2017 Anion gap 3 molar conc 11 mmol/L Normal 7-17 [facility] Comment on above: Performed By: #### Destinee MACKENZIEJ ####Sid SANDERS, [facility] [place] [address] 96571 Chloride molar conc 106 mmol/L Normal 98-[address] [facility] Comment on above: Performed By: #### Destinee MACKENZIEJ ####Sid SANDERS, [facility] [place] [address] 95158 CO2 molar conc 24 mmol/L Normal 22-[address] [facility] Comment on above: Performed By: #### Destinee MACKENZIEJ ####Sid SANDERS, [facility] [place] [address] Creatinine mass conc 0.76 mg/dL Normal 0.70-1.[address] [facility] Comment on above: Performed By: #### C AVRILJ ####Sid SANDERS, [facility] [place] [address] 03926 Est GFR, >60 Normal >[address] [facility] Comment on above: Performed By: #### C AVRILJ ####Sid SANDERS, [facility] [place] [address] 30044 Est GFR,non >60 Normal >[address] [facility] Comment on above: Performed By: #### C AVRILJ ####Sid SANDERS, [facility] [place] [address] Glucose mass conc 230 mg/dL High 70-99 [facility] Comment on above: Performed By: #### C AVRILJ ####Sid SANDERS, [facility] [place] [address] 46364 Osmolality 297 mOsm/kg Normal 278-[address] [facility] Comment on above: Performed By: #### C AVRILJ ####Sid [facility] [place] [address] 06475 Potassium molar conc 4.1 mmol/L Normal 3.5-5.[address] [facility] Comment on above: Performed By: #### C AVRILJ ####Sid SANDERS, [facility] [place] [address] 65446 Sodium molar conc 137 mmol/L Normal 133-143 [facility] Comment on above: Performed By: #### C AVRILJ ####Sid [facility]ERSL[facility] [place] [address] 33378 Urea nitrogen mass conc 17 mg/dL Normal 7-22 [facility] Comment on above: Performed By: #### C BCALBERTOJ ####Sid SANDERS, [facility] [place] [address] 84878 Urea nitrogen/Creatinine mass ratio 22 mg/mg Normal [facility] Comment on above: Performed By: #### C AVRILJ ####Sid SANDERS, [facility] [place] [address] Calciumon 06-19-2017 Calcium mass conc 7.9 mg/dL Low 8.6-10.5 [facility] Comment on above: Performed By: #### C SHAMEKA ####Sid SANDERS, [facility] [place] [address] HEMOGRAM (CBC and Platelet)o n 06-19-2017 Hematocrit Auto Volume Fraction (Bld) 21.9 % Low 40.1-51.[address] [facility] Comment on above: Performed By: #### C BCALBERTOJ ####Sid SANDERS, [facility] [place] [address] Hemoglobin mass conc (Bld) 7.1 g/dL Low 13.7-17.[address] [facility] Comment on above: Performed By: #### C BCALBERTOJ ####Sid SANDERS, [facility] [place] [address] MCV Auto Entitic volume (RBC) 90.9 fL Normal 79.0-92.[address] [facility] Comment on above: Performed By: #### C BCALBERTOJ ####Sid SANDERS, [facility] [place] [address] Mean Cell Hgb 29.5 pg Normal 25.7-32.[address] [facility] Comment on above: Performed By: #### C BCALBERTOJ ####Sid SANDERS, [facility] [place] [address] Mean Cell Hgb Conc 32.4 g/dL Normal 32.3-36.5 [facility] Comment on above: Performed By: #### C BCALBERTOJ ####Sid SANDERS, [facility] [place] [address] Nucleated RBC #/vol (Bld) 0.0 /100 WBC Normal 0.0-0.[address] [facility] Comment on above: Performed By: #### Destinee MACKENZIEJ ####Sid [facility]ERSL[facility] [place] [address] Platelet mean volume Auto Entitic volume (Bld) 10.3 fL Normal 9.4-12.[address] [facility] Comment on above: Performed By: #### Destinee MYLES ####Sid [facility]ERSL[facility] [place] [address] Platelets Auto #/vol (Bld) 151 10*3/uL Low 163-[address] [facility] Comment on above: Performed By: #### Destinee MYLES ####Sid [facility] [place] [address] RBC Auto #/vol (Bld) 2.41 10*6/uL Low 4.63-6.08 [facility] Comment on above: Performed By: #### Destinee MYLES ####Sid [facility] [place] [address] RBC Auto #/vol (Bld) 13.6 % Normal 11.6-14.[address] [facility] Comment on above: Performed By: #### Destinee MACKENZIEJ ####Sid [facility] [place] [address] WBC Auto #/vol (Bld) 8.16 10*3/uL Normal 4.23-9.07 [facility] Comment on above: Performed By: #### Destinee MACKENZIEJ ####Sid [facility] [place] [address] Hemoglobin A1con 06-19-2017 Glucose mass conc 163 mg/dL Normal [facility] Comment on above: Performed By: #### Destinee MACKENZIEJ ####Sid [facility] [place] [address] Hemoglobin A1c/Hemoglobin.total mass fraction (Bld) 7.3 % High 4.7-5.[address] [facility] Comment on above: Performed By: #### C BCDFJ ####Sid [facility]Tisha, [facility] [place] [address] Inorganic Phosphateon 2017 Inorg Phosphate 1.4 mg/dL Low 2.2-4.6 [facility] Comment on above: Performed By: #### C BCDFJ ####Sid [facility], [facility] [place] [address] Magnesiumon 06-19-2017 Magnesium mass conc 2.0 mg/dL Normal 1.6-2.[address] [facility] Comment on above: Performed By: #### C BCDFJ ####Sid [facility], [facility] [place] [address] XR KNEE LEFT 3 VIEWSon 06-19 XR KNEE LEFT 3 VIEWS EXAM: XR KNEE LEFT 3 VIEWS 06/19/2017 13:59 PMCOMPARISON: No prior studies available for comparison.CLINICAL INDICATIONS: Increase pain and edema s/p trauma.FINDINGS: 3 images obtained.Effusion: There is no joint effusion.Soft Tissue: Mild prepatellar soft tissue swelling. Atherosclerotic vascularcalcifications.Diogo ne: No acute osseous abnormality. Joint: Tricompartmental degenerative changes with joint space narrowing,subchondral sclerosis, and marginal osteophytosis.TibFib syndesmosis: The proximal tibiofibular syndesmosis is anatomicallyaligned. IMPRESSION: 1. No acute osseous abnormality.2. Tricompartmental osteoarthritis.Electronic ally Signed By: Dedrick Rodríguez MD on 06/19/2017 3:48 PMI personally viewed and interpreted these images and I have reviewed andapproved this report. Normal [facility] *POC GLUCOSE BATTERYon 06-18 *POC SAMPLE TYPE Capillary Blood Normal [place] [facility] Glucose mass conc 231 mg/dL High 70-99 [facility] Comment on above: Result Comment: Noti fied RNread backNo BRAVE per RN: PATIENT TYPE CHEM 7on 06-18-2017 Anion gap 3 molar conc 8 mmol/L Normal 7-17 [facility] Comment on above: Performed By: #### H CHIVO, CA, CHM7, IPB, MGO ####[facility] [place] [address] [place], [place] [phone] [place] [address] 29507 Chloride molar conc 107 mmol/L Normal 98-[address] [facility] Comment on above: Performed By: #### H CHIVO, CA, CHM7, IPB, MGO ####[facility] [place], [place] [address] [place] [address] 66974 CO2 molar conc 26 mmol/L Normal 22-[address] [facility] Comment on above: Performed By: #### H CHIVO, CA, CHM7, IPB, MGO ####[facility] [place], [place] [address] [place] [address] 30425 Creatinine mass conc 0.95 mg/dL Normal 0.70-1.[address] [facility] Comment on above: Performed By: #### H CHIVO, CA, CHM7, IPB, MGO ####[facility] [place], [place] [address] [place] [address] 02377 Est GFR, >60 Normal >[address] [facility] Comment on above: Performed By: #### H CHIVO, CA, CHM7, IPB, MGO ####[facility] [place], [place] [address] [place], [place] [address] Est GFR,non >60 Normal >[address] [facility] Comment on above: Performed By: #### H MOEGC, CA, CHM7, IPB, MGO ####[facility] [place], [place] [address] [place] [address] Glucose mass conc 198 mg/dL High 70-99 [facility] Comment on above: Performed By: #### H MOEGC, CA, CHM7, IPB, MGO ####[facility] [place], [place] [address] [place] [address] Osmolality 297 mOsm/kg Normal 278-[address] [facility] Comment on above: Performed By: #### H MOEGC, CA, CHM7, IPB, MGO ####[facility] [place], [place] [address] [place] [address] 81249 Potassium molar conc 4.1 mmol/L Normal 3.5-5.[address] [facility] Comment on above: Performed By: #### H CHIVO, CA, CHM7, IPB, MGO ####[facility] [place], [place] [address] [place] [address] Sodium molar conc 137 mmol/L Normal 133-143 [facility] Comment on above: Performed By: #### H CHIVO, CA, CHM7, IPB, MGO ####[facility] [place], [place] [address] [place] [address] 81574 Urea nitrogen mass conc 21 mg/dL Normal 7-22 [facility] Comment on above: Performed By: #### H MOEGC, CA, CHM7, IPB, MGO ####[facility] [place], [place] [address] [place] [address] Urea nitrogen/Creatinine mass ratio 22 mg/mg Normal [facility] Comment on above: Performed By: #### H CHIVO, CA, CHM7, IPB, MGO ####[facility] [place], [place] [address] [place], [place] [phone] [place] [address] Calciumon 06-18-2017 Calcium mass conc 8.0 mg/dL Low 8.6-10.5 [facility] Comment on above: Performed By: #### H CHIVO, CA, CHM7, IPB, MGO ####[facility] [place], [place] [address] [place] [address] HEMOGRAM (CBC and Platelet)o n 06-18-2017 Hematocrit Auto Volume Fraction (Bld) 24.7 % Low 40.1-51.[address] [facility] Comment on above: Performed By: #### H CHIVO, CA, CHM7, IPB, MGO ####[facility] [place], [place] [address] [place] [address] Hemoglobin mass conc (Bld) 8.0 g/dL Low 13.7-17.[address] [facility] Comment on above: Result Comment: Resu lts inconsistent with previous results Performed By: #### H CHIVO, CA, CHM7, IPB, MGO ####[facility] [place], [place] [address] [place] [address] MCV Auto Entitic volume (RBC) 89.2 fL Normal 79.0-92.[address] [facility] Comment on above: Performed By: #### H CHIVO, CA, CHM7, IPB, MGO ####[facility] [place], [place] [address] [place] [address] Mean Cell Hgb 28.9 pg Normal 25.7-32.[address] [facility] Comment on above: Performed By: #### H CHIVO, CA, CHM7, IPB, MGO ####[facility] [place], [place] [address] [place], [place] [id number] [place] [address] Mean Cell Hgb Conc 32.4 g/dL Normal 32.3-36.5 [facility] Comment on above: Performed By: #### H CHIVO, CA, CHM7, IPB, MGO ####[facility] [place], [place] [address] [place] [address] Nucleated RBC #/vol (Bld) 0.0 /100 WBC Normal 0.0-0.[address] [facility] Comment on above: Performed By: #### H CHIVO, CA, CHM7, IPB, MGO ####[facility] [place], [place] [address] [place] [address] Platelet mean volume Auto Entitic volume (Bld) 10.6 fL Normal 9.4-12.[address] [facility] Comment on above: Performed By: #### H CHIVO, CA, REYNALDOM7, IPB, MGO ####[facility] [place], [place] [address] [place] [address] Platelets Auto #/vol (Bld) 200 10*3/uL Normal 163-[address] [facility] Comment on above: Performed By: #### H CHIVO, CA, CHM7, IPB, MGO ####[facility] [place], [place] [address] [place] [address] RBC Auto #/vol (Bld) 13.5 % Normal 11.6-14.[address] [facility] Comment on above: Performed By: #### H EMOGC, CA, CHM7, IPB, MGO ####U [facility] [place], [place] [address]KrljllSheltering Arms Hospital[address] [place] [address] 28984 RBC Auto #/vol (Bld) 2.77 10*6/uL Low 4.63-6.08 [facility] Comment on above: Performed By: #### H [facility], [place], CHM7, IPB, MGO ####[facility] [place] [id number] [place], [place] [phone] [place] [address] 83331 WBC Auto #/vol (Bld) 8.66 10*3/uL Normal 4.23-9.07 [facility] Comment on above: Performed By: #### H [facility], [place], CHM7, IPB, MGO ####Carrie [facility] [place] [address] [place], [place] [phone] [place] [address] HGB & HCTon 06-18-2017 Hematocrit Auto Volume Fraction (Bld) 22.3 % Low 40.1-51.[address] [facility] Comment on above: Performed By: ###Donna MYLES ###Kevin S[facility]ERSL[facility] [place] [address] Hemoglobin mass conc (Bld) 7.3 g/dL Low 13.7-17.[address] [facility] Comment on above: Performed By: ###Donna MYLES ###Kevin [facility]TishaL[facility]health [facility] Center[address] [place] [address] Inorganic Phosphateon 2017 Inorg Phosphate 2.2 mg/dL Normal 2.2-4.6 [facility] Comment on above: Performed By: ###Donna MYLES ###Kevin [facility]ERSL[facility] [place], [place] [address] Magnesiumon 06-18-2017 Magnesium mass conc 1.8 mg/dL Normal 1.6-2.[address] [facility] Comment on above: Performed By: #### C BCDFJ ####Sid [facility], [facility] [place] [address] Type and Laura 06-18-2017 Type and Cross ABO/RH(D): O POSITIV E ANTIBODY SCREEN: NEGATIVE UNIT NUMBER: [id number] BLOOD COMPONENT TYPE: Red Cells, Leukoreduced_[id number] STATUS OF UNIT: REL FROM [facility] TRANSFUSION STATUS: OK TO TRANSFUSE CROSSMATCH RESULT: Electronically Compatible Normal [facility] Comment on above: Performed By: #### C BCDFJ ####Sid [facility], [facility] [place] [address]37 XR SHOULDER LEFT MIN 2 VIEWS on 06-18-2017 XR SHOULDER LEFT MIN 2 VIEWS EXAM: XR SHOULDER LEFT 3 VIEWS,, 06/18/2017 11:12 AMCLINICAL INDICATIONS: shoulder pain after traumaRELEVANT CLINICAL HISTORY:COMPARISON: No prior studies available for comparison.FINDINGS:3 images obtained.Soft Tissue: There is no significant soft tissue swelling.Bone: No acute osseous abnormality is identified. Bony proliferative changesarising from the greater tuberosity represent chronic rotator cuff pathology.Joint: The glenohumeral and acromioclavicular joints are anatomically alignedwith degenerative changes of the acromioclavicular joint. IMPRESSION: Osteoarthritis of the acromioclavicular joint. Chronic rotator cuff pathology.No acute osseous abnormality identified. Normal [facility] *POC GLUCOSE BATTERYon 06-17 *POC SAMPLE TYPE Capillary Blood Normal [facility] Glucose mass conc 191 mg/dL High 70-99 [facility] Comment on above: Result Comment: No B BURAKE per RN: PATIENT TYPE ANION GAPon 06-17-2017 Anion gap 13.0 mmol/L Normal 8.0-16.0 [facility] Comment on above: Result Comment: ANIO N GAP = Sodium -(Chloride + CO2) Performed By: #### C BC, PT, BMP, ANION, OSMOL, EGFR1 ####[facility] [address] [place] [address] BASIC METABOL PANELon 2017 Calcium 9.2 mg/dL Normal 8.5-10.5 [facility] Comment on above: Performed By: #### C BC, PT, BMP, ANION, OSMOL, EGFR1 ####[facility] [employer] [address] [place] [address] Chloride 103 mmol/L Normal 98-111 [facility] Comment on above: Performed By: #### C BC, PT, BMP, ANION, OSMOL, EGFR1 ####[facility] advisorCONNECT[address] [place] [address] CO2 25 mmol/L Normal 23-33 [facility] Comment on above: Performed By: #### C BC, PT, BMP, ANION, OSMOL, EGFR1 ####[facility] [address]CONNECT[address] [place] [address] Creatinine 0.8 mg/dL Normal 0.4-1.2 [facility] Comment on above: Performed By: #### C BC, PT, BMP, ANION, OSMOL, EGFR1 ####[facility] advisorCONNECT[address] [place] [address] Glucose mass conc 130 mg/dL High 70-108 [facility] Comment on above: Performed By: #### C BC, PT, BMP, ANION, OSMOL, EGFR1 ####[facility] [place] [address] Potassium molar conc 4.2 mmol/L Normal 3.5-5.2 [facility] Comment on above: Performed By: #### C BC, PT, BMP, ANION, OSMOL, EGFR1 ####[facility] [employer] [address] [place] [address] Sodium 141 mmol/L Normal 135-145 [facility] Comment on above: Performed By: #### C BC, PT, BMP, ANION, OSMOL, EGFR1 ####[facility] [place] [address] Urea nitrogen 23 mg/dL High 7-22 [facility] Comment on above: Performed By: #### C BC, PT, BMP, ANION, OSMOL, EGFR1 ####[facility] [place] [address] CALCULATED OSMOLALITYon Osmolality 286.7 mOsmol/kg Normal 275.0-300. [facility] Comment on above: Performed By: #### C BC, PT, BMP, ANION, OSMOL, EGFR1 ####[facility] [place] [address] CBC WITH DIFF Carie 2017 Abs Baso <0.04 Normal 0.01-0.[address] [facility] Comment on above: Performed By: #### Destinee BEEDFJ ####Sid SANDERS, [facility] [place], [place] [address] Abs Eos <0.04 Low 0.04-0.[address] [facility] Comment on above: Performed By: #### Destinee BEEDFJ ####Sid SANDERS, [facility] [place], [place] [address] Abs Taylor 0.89 K/uL High 0.30-0.[address] [facility] Comment on above: Performed By: #### Destinee BEEDFJ ####Sid SANDERS, [facility] [place], [place] [address] Basophils/100 WBC Auto (Bld) 0.1 % Normal [facility] Comment on above: Performed By: #### Destinee BEEDFJ ####Sid [facility]ERSL[facility] [place], [place] [address] DIFFERENTIAL TYPE Electronic Differential Normal [facility] Comment on above: Performed By: #### Destinee BEEDFJ ####Sid SANDERS, [facility] [place], [place] [address] Eosinophils/100 WBC Auto (Bld) 0.1 % Normal [facility] Comment on above: Performed By: #### Destinee MYLES ####Sid SANDERS [facility] [place] [address] Hematocrit Auto Volume Fraction (Bld) 33.0 % Low 40.1-51.[address] [facility] Comment on above: Performed By: #### Destinee MACKENZIEJ ####Sid S[facility]ERSLake[facility] Center[address] [place] [address] Hemoglobin mass conc (Bld) 10.6 g/dL Low 13.7-17.[address] [facility] Comment on above: Performed By: #### Destinee MACKENZIEJ ####Sid SANDERSLakehealth [facility] Center[address] [place], [place] [address] IMMATURE GRANS % 0.4 % Normal [facility] [place] Comment on above: Performed By: #### Destinee MACKENZIEJ ####Sid [facility] [place] [address] IMMATURE GRANS ABSOLUTE 0.06 K/uL High 0.00-0.03 [facility] Comment on above: Performed By: #### Destinee MACKENZIEJ ####Sid [facility] [place] [address] Lymphocytes Auto #/vol (Bld) 1.12 10*3/uL Low 1.32-3.[address] [facility] Comment on above: Performed By: #### Destinee MACKENZIEJ ####Sid SANEDRSLakehealth Beach[facility] Center[address] [place] [address] 489[address] Lymphocytes/100 WBC Auto (Bld) 8.0 % Normal [facility] Comment on above: Performed By: #### Destinee MACKENZIEJ ####Sid [facility] [place], [place] [address] MCV Auto Entitic volume (RBC) 89.7 fL Normal 79.0-92.[address] [facility] Comment on above: Performed By: #### Destinee MACKENZIEJ ####Sid [facility] [place] [address] Mean Cell Hgb 28.8 pg Normal 25.7-32.[address] [facility] Comment on above: Performed By: #### Destinee MACKENZIEJ ####Sid TOMMYLakehealth Beach[facility] Center[address] [place] [address] Mean Cell Hgb Conc 32.1 g/dL Low 32.3-36.5 [facility] Comment on above: Performed By: #### Destinee MYLES ####Sid SANDERS, [facility] [place] [address] Monocytes/100 WBC Auto (Bld) 6.4 % Normal [facility] Comment on above: Performed By: #### Destinee MACKENZIEJ ####Sid S[facility]ERSL[facility] [place] [address] NEUTROPHIL SEGMENTED 85.0 % Normal [facility] Comment on above: Performed By: #### Destinee MACKENZIEJ ####Sid S[facility]ERSL[facility] [place] [address] Nucleated RBC #/vol (Bld) 0.0 /100 WBC Normal 0.0-0.[address] [facility] Comment on above: Performed By: #### Destinee MACKENZIEJ ####Sid S[facility]ERSL[facility] [place] [address] Platelet mean volume Auto Entitic volume (Bld) 10.3 fL Normal 9.4-12.[address] [facility] Comment on above: Performed By: #### Destinee MACKENZIEJ ####Sid S[facility]ERSL[facility] [place] [address]71 Platelets Auto #/vol (Bld) 238 10*3/uL Normal 163-[address] [facility] Comment on above: Performed By: #### Destinee MACKENZIEJ ####Sid S[facility]ERSL[facility] [place] [address] RBC Auto #/vol (Bld) 3.68 10*6/uL Low 4.63-6.08 [facility] Comment on above: Performed By: #### Destinee BCDFJ ####Sid [facility]Tisha, [facility] [place] [address] RBC Auto #/vol (Bld) 13.3 % Normal 11.6-14.[address] [facility] Comment on above: Performed By: #### Destinee BEEDFJ ####Sid [facility], [facility] [place] [address] SEGS + Bands,Absolute 11.91 K/uL High 1.78-5.38 [facility] Comment on above: Performed By: #### Destinee BEEDFJ ####Sid [facility], [facility] [place] [address] 317[address] WBC Auto #/vol (Bld) 14.01 10*3/uL High 4.23-9.07 [facility] Comment on above: Performed By: #### Destinee MACKENZIEJ ####Sid [facility]Tisha, [facility] [place] [id number] CBC WITH DIFFERENTIALon 05-0 2-2018 Basophils Auto #/vol (Bld) 0.0 thou/mm3 Normal 0.0-0.1 [facility] Comment on above: Performed By: #### C BC, PT, BMP, ANION, OSMOL, EGFR1 ####[facility] [address] [place] [address] Basophils/100 WBC Auto (Bld) 0.6 % Normal [facility] Comment on above: Performed By: #### C BC, PT, BMP, ANION, OSMOL, EGFR1 ####[facility] [address] [place] [address] Eosinophils 0.2 thou/mm3 Normal 0.0-0.4 [facility] Comment on above: Performed By: #### C BC, PT, BMP, ANION, OSMOL, EGFR1 ####[facility] [address] [place] [address] Eosinophils/100 leukocytes 2.0 % Normal [facility] Comment on above: Performed By: #### C BC, PT, BMP, ANION, OSMOL, EGFR1 ####[place] [address] Erythrocyte distribution width Auto Ratio (RBC) 13.9 % Normal 11.5-14.5 [facility] Comment on above: Performed By: #### C BC, PT, BMP, ANION, OSMOL, EGFR1 ####[place] [address] Erythrocytes (RBC) 0 /100 wbc Normal [facility] Comment on above: Performed By: #### C BC, PT, BMP, ANION, OSMOL, EGFR1 ####[place] [address] Erythrocytes (RBC) 4.60 mill/mm3 Low 4.70-6.10 [facility] Comment on above: Performed By: #### C BC, PT, BMP, ANION, OSMOL, EGFR1 ####[place] [address] Hematocrit (HCT) 39.8 % Low 42.0-52.0 [facility] Comment on above: Performed By: #### C BC, PT, BMP, ANION, OSMOL, EGFR1 ####[place] [address] Hemoglobin mass conc (Bld) 13.6 gm/dl Low 14.0-18.0 [facility] Comment on above: Performed By: #### C BC, PT, BMP, ANION, OSMOL, EGFR1 ####[place] [address] Lymphocytes 1.5 thou/mm3 Normal 1.0-4.8 [facility] Comment on above: Performed By: #### C BC, PT, BMP, ANION, OSMOL, EGFR1 ####[place] [address] Lymphocytes/100 leukocytes 18.6 % Normal [facility] Comment on above: Performed By: #### C BC, PT, BMP, ANION, OSMOL, EGFR1 ####[place] [address] MCH 29.5 pg Normal 27.0-31.0 [facility] Comment on above: Performed By: #### C BC, PT, BMP, ANION, OSMOL, EGFR1 ####[address] mass conc (RBC) 34.1 gm/dl Normal 33.0-37.0 [facility] Comment on above: Performed By: #### C BC, PT, BMP, ANION, OSMOL, EGFR1 ####[place] [address] MCV 86.5 fL Normal 80.0-94.0 [facility] Comment on above: Performed By: #### C BC, PT, BMP, ANION, OSMOL, EGFR1 ####[place] [address] Monocytes 0.6 thou/mm3 Normal 0.4-1.3 [facility] Comment on above: Performed By: #### C BC, PT, BMP, ANION, OSMOL, EGFR1 ####[place] [address] Monocytes/100 leukocytes 7.0 % Normal [facility] Comment on above: Performed By: #### C BC, PT, BMP, ANION, OSMOL, EGFR1 ####[place] [address] Platelet mean volume (PMV) 8.9 fL Normal 7.4-10.4 [facility] Comment on above: Performed By: #### C BC, PT, BMP, ANION, OSMOL, EGFR1 ####[place] [address] Platelets 260 thou/mm3 Normal 130-400 [facility] Comment on above: Performed By: #### C BC, PT, BMP, ANION, OSMOL, EGFR1 ####[place] [address] SEGS 71.8 % Normal [facility] Comment on above: Performed By: #### C BC, PT, BMP, ANION, OSMOL, EGFR1 ####[place] [address] SEGS ABSOLUTE COUNT 5.7 thou/mm3 Normal 1.8-7.7 [facility] Comment on above: Performed By: #### C BC, PT, BMP, ANION, OSMOL, EGFR1 ####[facility] [address] [place] [address] WBC (Leukocytes) 8.0 thou/mm3 Normal 4.8-10.8 [facility] Comment on above: Performed By: #### C BC, PT, BMP, ANION, OSMOL, EGFR1 ####[facility] [address] [place] [address] CHEM 7 ED - CHRIon 8 Anion gap 3 molar conc 11 mmol/L Normal 7-17 [facility] Comment on above: Performed By: #### C BCDFJ ####Sid SANDERS, [facility] [place] [address] Chloride molar conc 109 mmol/L High 98-[address] [facility] Comment on above: Performed By: #### C CRISTALDFJ ####Sid SANDERS, [facility] [place], [place] [address] CO2 molar conc 22 mmol/L Normal 22-[address] [facility] Comment on above: Performed By: #### C CRISTALDFJ ####[facility] [place], [place] [address] Creatinine mass conc 0.95 mg/dL Normal 0.70-1.[address] [facility] Comment on above: Performed By: #### C BCDFJ ####Sid SANDERS, [facility] [place], [place] [address] Est GFR, >60 Normal >[address] [facility] Comment on above: Performed By: #### C BCDFJ ####Sid SANDERS, [facility] [place], [place] [address] Est GFR,non >60 Normal >[address] [facility] Comment on above: Performed By: #### C BCDFJ ####Sid SANDERS, [facility] [place] [address] Glucose mass conc 209 mg/dL High 70-99 [facility] Comment on above: Performed By: #### C BCDFJ ####Sid TOMMY, [facility] [place] [address] Osmolality 300 mOsm/kg Normal 278-[address] [facility] Comment on above: Performed By: #### C BCDFJ ####Sid TOMMY, [facility] [place] [address] Potassium molar conc 4.4 mmol/L Normal 3.5-5.[address] [facility] Comment on above: Performed By: #### C BCDFJ ####Sid SANDERS, [facility] [place] [address] Sodium molar conc 138 mmol/L Normal 133-143 [facility] Comment on above: Performed By: #### C BCDFJ ####Sid TOMMY, [facility] [place] [address] Urea nitrogen mass conc 22 mg/dL Normal 7-22 [facility] Comment on above: Performed By: #### C BCDFJ ####Sid SANDERS, [facility] [place] [address] Urea nitrogen/Creatinine mass ratio 23 mg/mg Normal [facility] Comment on above: Performed By: #### C BCDFJ ####Sid TOMMY, [facility] [place] [address] CERVICAL SPINE WO CONTRAS Ton 06-17-2017 CT CERVICAL SPINE WO CONTRAST PROCEDURE: CT CERVICAL SPINE WO CONTRASTCLINICAL INFORMATION: trauma. Fell down the stairs.COMPARISON: No prior study.TECHNIQUE: 3 mm noncontrast axial images were obtained through the cervical spine with sagittal and coronal reconstructions.All CT scans at this facility use dose modulation, iterative reconstruction, and/or weight-based dosing when appropriate to reduce radiation dose to as low as reasonably achievable.FINDINGS:The cervical vertebral bodies are normally aligned. There is no fracture. There is no prevertebral soft tissue swelling. There is degenerative disc disease at the C6-7 level. No suspicious osseous lesions are present.There are no suspicious findings in the cervical soft tissues. There are no suspicious findings in the lung apices. IMPRESSION: No fracture.This report has been created using voice recognition software. It may contain minor errors which are inherent in voice recognition technology.Final report electronically signed by Dr. Ayesha Lawson on 06/17/2017 4:14 PMInterpreted by:LOURDES Clemensigned by:Ayesha Lawson MD5/2/18Final result Normal [facility] CT HEAD WO CONTRASTon 2017 CT HEAD WO CONTRAST PROCEDURE: CT HEAD W O CONTRASTCLINICAL INFORMATION: trauma. Trauma. Fell 5- 6 [address].COMPARISON: No prior study.TECHNIQUE: Noncontrast 5 mm axial images were obtained through the brain.All CT scans at this facility use dose modulation, iterative reconstruction, and/or weight-based dosing when appropriate to reduce radiation dose to as low as reasonably achievable.FINDINGS:There is no hemorrhage. There are no intra-or extra-axial collections. There is no hydrocephalus, midline shift or mass effect. The wahl-white matter differentiation is preserved. There is a left lateral scalp injury. There are vascular calcifications. The paranasal sinuses and mastoid air cells are normally aerated. There is no skull fracture. IMPRESSION: 1. Left lateral scalp injury.2. No intracranial hemorrhage.This report has been created using voice recognition software. It may contain minor errors which are inherent in voice recognition technology.Final report electronically signed by Dr. Ayesha Lawson on 06/17/2017 4:11 PMInterpreted by:LOURDES Clemensigned by:Ayesha Lawson MD5/2/18Final result Normal [facility] ED Noteon 06-17-2017 HIM IP Note OR [employer] Normal [facility] HIM IP Note OR St[employer] Washer Operator Normal [facility] HIM IP Note OR Straw Hat Washer Operator Normal [facility] HIM IP Note OR [employer] Washer Operator Normal [facility] HIM IP Note OR [employer] Washer Operator Normal [facility] HIM IP Note OR St[employer] Washer Operator Normal [facility] HIM IP Note OR St[employer] Washer Operator Normal [facility] HIM IP Note OR St[employer] Washer Operator Normal [facility] HIM IP Note OR St[employer] Washer Operator Normal [facility] HIM IP Note OR St[employer] Hat Washer Operator Normal [facility] HIM IP Note OR Straw Hat Washer Operator Normal [facility] HIM IP Note OR St[employer] Washer Operator Normal [facility] HIM IP Note OR Straw Hat Washer Operator Normal [facility] HIM IP Note OR Straw Hat Washer Operator Normal [facility] ED Provider Noteon 8 HIM IP Note OR [employer] Operator Normal [facility] Ethyl Alcohol, blood - CHRIo n 06-17-2017 Ethyl Alcohol, blood <10 Normal <[address] [facility] Comment on above: Result Comment: For Medical Purposes Only, Non forensic Performed By: #### C CRISTALDFJ ####Sid CCCT, [facility] [place] [address] GFR, ESTIMATEDon 06-17-2017 eGFR (MDRD) mL/min/{1.73_m2} Normal [facility] Comment on above: Result Comment: Joseph barrientos Description GFR, ml/min/1.73 m2 - At increased risk > or = 60 (with chronic kidney disease risk factors) 1 Normal or increased GFR > or = 90 2 Mildly or decreased GFR 60 - 89 3 Moderately decreased GFR 30 - 59 4 Severely decreased GFR 15 - 29 5 Kidney failure <15 (or dialysis)Estimated GFR calculated using abbreviated MDRD formula asrecommended by National Kidney Foundation. Calculation basedupon serum creatinine and adjusted for age, gender & race.Ruth. Internal Med., Vol. 139 (2) pg 137-147. Performed By: #### C BC, PT, BMP, ANION, OSMOL, EGFR1 ####[address] [place] [address] HEMATOCRITon 06-17-2017 Hematocrit (HCT) 33.4 % Low 42.0-52.0 [facility] Comment on above: Performed By: #### H GB, HCT ####[address] [place] [address] HEMOGLOBINon 06-17-2017 Hemoglobin mass conc (Bld) 11.3 gm/dl Low 14.0-18.0 [facility] Comment on above: Performed By: #### H GB, HCT ####[facility] [address] [place] [address] History and Physicalon 06-17 HIM IP Note OR [employer] Washer Operator Normal [facility] PLATELET MAP TEG CITRATEDon 06-17-2017 ANGLE 73.6 deg High 53.0-72.0 [facility] Comment on above: Performed By: #### P TEGC ####[facility] [address] [place] [address] EPL 0.2 % Normal [facility] Comment on above: Performed By: #### P TEGC ####[facility] [address] [place] [address] HEPARIN THERAPY NO Normal [facility] Comment on above: Performed By: #### P TEGC ####[facility] [address] [place] [address] INHIBITION AA 10.2 % Normal [facility] Comment on above: Performed By: #### P TEGC ####[facility] [address] [place] [address] INHIBITION ADP 0.0 % Normal [facility] Comment on above: Performed By: #### P TEGC ####[facility] [address] [place] [address] LY30 (LYSIS) 0.2 % Normal 0.0-7.5 [facility] Comment on above: Performed By: #### P TEGC ####[facility] [address] [place] [address] MA 63.9 mm Normal 50.0-70.0 [facility] Comment on above: Performed By: #### P TEGC ####[facility] [address] [place] [address] MA (AA) 58.5 mm Normal [facility] Comment on above: Result Comment: COMM ENT:Inhibition is meassured relative to patient baselinemaximum platelet function, MA (secondary to thrombinactivation).MA (activated): represents fibrin contribution to clot.MA (AA): represents Arachidonic Acid pathway inhibitor (aspirin) effect.MA (ADP): represents ADP and GPIIb-IIIa receptor contribution to the clot strength. PY212 drugs (inhibitor of ADP) such as Plavix, Effient and GPII-b-IIIa inhibitors - Integrilin, Aggrastat and Reopro- therapeutic effect can be assessed.Therapeutic range for P2Y12 inhibitors is MA (ADP) 35-47 mm.MA (ADP) is the most sensitive indicator and predictor ofpreoperative bleeding. MA (ADP) <50mm is associated withbleeding risk. (TARGET-CABG Study)Pre-op timing of Cardiac Surgery based on Platelet mapping: TEG MA (ADP) Wait Time --------- >50 mm - within 1 day 35-50 mm - wait 3-5 days <35 mm - wait 5 days Performed By: #### P TEGC ####[facility] [address] [place] [address] MA (ACTIVATED) 11.1 mm Normal [facility] Comment on above: Result Comment: ruba ected with functional fibrinogen Performed By: #### P TEGC ####[facility] [address] [place] [address] MA (ADP) 63.9 mm Normal [facility] Comment on above: Performed By: #### P TEGC ####[employer] [address] [place] [address] Potassium molar conc 1.1 minutes Normal 1.0-3.0 [facility] Comment on above: Performed By: #### P TEGC ####[address] [place] [address] R TIME 2.8 Minutes Low 5.0-10.0 [facility] Comment on above: Result Comment: This specimen was transported by pneumatic tube which mayshorten the R (Reaction) time by approximately 1.4 minutes. Performed By: #### P TEGC ####[address] [place] [address] PROTHOMBIN TIMEon 06-17-2017 INR Coag RelTime (PPP) 0.97 {INR} Normal 0.85-1.13 [facility] Comment on above: Result Comment: ---- -----INDICATION INR Reference RangeDVT, PE, AF, AMI, tissue heart valve 2.0 to 3.0Mechanical prosthetic valves 2.5 to 3.5 Performed By: #### C BC, PT, BMP, ANION, OSMOL, EGFR1 ####[facility] [employer] [address] [address] PT/INR BATTERY - CHRIon INR Coag RelTime (PPP) 1.1 {INR} Normal 0.9-1.1 [facility] Comment on above: Performed By: #### C BCDFJ ####Sid CCCT, [facility] [place] [address] Prothrombin time (PT) Coag time (PPP) 14.1 s Normal 11.9-14.[address] [facility] Comment on above: Performed By: #### Destinee BEEDFJ ####Sid CCCTisha, [facility] [place] [address] TYPE AND SCREEN CAPTUREon ABO CAPTURE O Normal [facility] Comment on above: Performed By: #### C T+S ####[place] [address] INDIRECT RADHA CAPTURE Negative Normal [facility] Comment on above: Performed By: #### C T+S ####[place] [address] RH CAPTURE (2 D CLONES) Positive Normal [facility] Comment on above: Performed By: #### C T+S ####[facility] [employer] [address] [address] Type and Laura 06-17-2017 Type and Cross Negative Normal [facility] Comment on above: Performed By: #### X M ####STACY [facility] [place] [address] [place], [place] [id number] [place] [address] XR CHEST AP PORTABLE EDon XR CHEST AP PORTABLE ED EXAM: XR CHEST A P PORTABLE ED, 06/17/2017 19:48 PMCOMPARISON: No prior studies available for comparison.CLINICAL INDICATIONS: traumaRELEVANT CLINICAL HISTORY:FINDINGS: (Compromised by low lung volumes)Life Support Devices: None Chest Wall: Surgical screw in the proximal right humerus. Surgical clipsproject within the right upper quadrant.Raine: NormalMediastinum: NormalPleural Spaces: No definite pleural effusion. No definite pneumothorax.Lungs: Elevation of the right hemidiaphragm. Lungs are clear.Cardiac Silhouette: Normal, without overall or specific chamber enlargement,or abnormal calcification Thoracic Aorta: NormalPulmonary Vessels: Normal, without PVHIMPRESSION:Slightly displaced right lateral seventh rib fracture. Otherwise no acutecardiopulmonary findings.I personally viewed and interpreted these images and I have reviewed andapproved this report. Normal [facility] XR FEMUR RIGHT (MIN 2 VIEWS) on 06-17-2017 XR FEMUR RIGHT (MIN 2 VIEWS) PROCEDURE: XR FEMUR RIGHT (MIN 2 VIEWS)CLINICAL INFORMATION: Pain following a fall one day agoTECHNIQUE: 4 views of the right femurCOMPARISON: NoneFINDINGS: There is no acute fracture or dislocation. Joint space narrowing and sclerosis are present at the hip and knee. Scattered atherosclerotic vascular calcifications are noted.IMPRESSION: No acute fracture or dislocation.Final report electronically signed by Dr. Sascha Monaco on 06/17/2017 4:14 PMInterpreted by:LOURDES Powelligned by:Sascha Monaco MD06/17/18Final result Normal [facility] XR PELVIS (1-2 VIEWS)on XR PELVIS (1-2 VIEWS) PROCEDURE: XR PELV IS (1-2 VIEWS)CLINICAL INFORMATION: fall , . Trauma by fall.COMPARISON: No prior study.TECHNIQUE: AP view of the pelvis.FINDINGS: There is a Muñiz catheter in place.The pelvic ring is intact. There is no fracture or dislocation of either hip. The superior and inferior pubic rami are intact. The sacroiliac joints are within appropriate limits. There is a possible fracture of one of the sacral struts on the left. The right sacral struts are normal. There are mild degenerative changes in both hips. IMPRESSION: Possible fracture of one of the left-sided sacral struts. This could be confirmed on a CT if it will alter clinical management.This report has been created using voice recognition software. It may contain minor errors which are inherent in voice recognition technology.Final report electronically signed by Dr. Ayesha Lawson on 06/17/2017 3:26 PMInterpreted by:LOURDES Clemensigned by:Ayesha Lawson MD5/2/18Final result Normal [facility] XR TIBIA FIBULA RIGHT (2 VIE WS)on 06-17-2017 XR TIBIA FIBULA RIGHT (2 VIEWS) PROCEDURE: XR TIBIA FIBULA RIGHT (2 VIEWS)CLINICAL INFORMATION: trauma, . Fell down the stairs. Degloving injury.COMPARISON: No prior study.TECHNIQUE: AP and lateral views of the right lower leg.FINDINGS: There is extensive soft tissue injury. There is no foreign body.There is no fracture. The tibia and fibula are intact. No suspicious osseous lesions are present. There are mild degenerative changes in the right knee. There are degenerative changes in the right ankle.IMPRESSION: 1. Extensive posterior soft tissue injury.2. No fracture.This report has been created using voice recognition software. It may contain minor errors which are inherent in voice recognition technology.Final report electronically signed by Dr. Ayesha Lawson on 06/17/2017 4:15 PMInterpreted by:LOURDES Clemensigned by:Ayesha Lawson MD5/2/18Final result Normal [facility] Vital Signs Date Time Vital Sign Value Performing Clinician Faci alonay 11-18-2024 13:18040 Body height 185.[address] Milana Marie MD Work Phone: [facility] 11-18-2024 13:18-0400 Body mass index (BMI) [Ratio] 31.9 kg/m2 Dr. Milana Marie MD Work Phone: [facility] 11-18-2024 13:18-040 Body weight 109.[address] Milana Marie MD Work Phone: [facility] 05-09-2024 13:29-0400 Body height 185.4 cm Edilma Nobles MD Work Phone: [facility] 05-09-2024 13:29-0400 Body mass index (BMI) [Ratio] 31.93 kg/m2 Edilma Nobles MD Work Phone: [facility] 05-09-2024 13:29-0400 Body weight 109.77 kg Edilma Nobles MD Work Phone: [facility] 05-09-2024 13:29-0400 Diastolic blood pressure 70 mm[Hg] Edilma Nobles MD Work Phone: [facility] 05-09-2024 13:29-0400 Heart rate 85 /min Edilma Nobles MD Work Phone: [facility] 05-09-2024 13:29-0400 Respiratory rate 14 /min Edilma Nobles MD Work Phone: [facility] 05-09-2024 13:29-0400 SaO2% (BldA) [Mass fraction] 98 % Edilma Nobles MD Work Phone: [facility] 05-09-2024 13:29-0400 Systolic blood pressure 118 mm[Hg] Edilma Nobles MD Work Phone: [facility] 09-14-2023 10:33-0400 Body mass index (BMI) [Ratio] 31.93 kg/m2 Edilma Nobles MD Work Phone: [facility] 09-14-2023 10:33-0400 Body weight 109.77 kg Edilma Nobles MD Work Phone: [facility] 09-14-2023 10:33-0400 Diastolic blood pressure 76 mm[Hg] Edilma Nobles MD Work Phone: [facility] 09-14-2023 10:33-0400 Heart rate 75 /min Edilma Nobles MD Work Phone: [facility] 09-14-2023 10:33-0400 SaO2% (BldA) [Mass fraction] 95 % Edilma Nobles MD Work Phone: [facility] 09-14-2023 10:33-0400 Systolic blood pressure 134 mm[Hg] Edilma Nobles MD Work Phone: [facility] 12-05-2022 11:39-0400 Body temperature 98.4 [degF] Dr. Milana Marie Work Phone: [facility] 12-05-2022 11:39-0400 Diastolic blood pressure 70 mm[Hg] Dr. Milana Marie Work Phone: [facility] 12-05-2022 11:39-0400 Heart rate 73 /min Dr. Milana Marie Work Phone: [facility] 12-05-2022 11:39-0400 Respiratory rate 15 /min Dr. Milana Marie Work Phone: [facility] 12-05-2022 11:39-0400 SaO2% (BldA) [Mass fraction] 98 % Dr. Milana Marie Work Phone: [facility] 12-05-2022 11:39-0400 Systolic blood pressure 121 mm[Hg] Dr. Milana Marie Work Phone: [facility] 12-04-2022 15:30-0400 Body height 185.[address] Milana Marie Work Phone: [facility] 12-04-2022 13:15-0400 Inhaled oxygen flow rate 4 L/min Dr. Milana Marie Work Phone: [facility] 12-04-2022 08:22-0400 Body mass index (BMI) [Ratio] 30.2 kg/m2 Dr. Milana Marie Work Phone: [facility] 12-04-2022 08:22-0400 Body weight [address] Milana Marie Work Phone: [facility] 10-28-2021 10:38-0400 Body height 185.4 cm Edilma Nobles MD Work Phone: [facility] 10-28-2021 10:38-0400 Body weight 112.49 kg Edilma Nobles MD Work Phone: [facility] 10-28-2021 10:38-0400 Diastolic blood pressure 78 mm[Hg] Edilma Nobles MD Work Phone: [facility] 10-28-2021 10:38-0400 Heart rate 76 /min Edilma Nobles MD Work Phone: [facility] 10-28-2021 10:38-0400 Respiratory rate 14 /min Edilma Nobles MD Work Phone: [facility] 10-28-2021 10:38-0400 SaO2% (BldA) [Mass fraction] 95 % Edilma Nobles MD Work Phone: [facility] 10-28-2021 10:38-0400 Systolic blood pressure 134 mm[Hg] Edilma Nobles MD Work Phone: [facility] Encounters Encounter Date Encounter Type Care Provider Facility Start: 11-18-2024 End: 11-18-[address] Zaid Pena MD -[facility] Start: 11-18-2024 End: 11-18-[address] Milana Marie MD Work Phone: -[facility] Start: 11-09-2024 End: 11-09-[address] Milana Marie MD Work Phone: -Laboratory Start: 11-09-2024 End: 11-09-[address] Mic Ruiz MD -Laboratory Work Phone: Start: 11-09-2024 End: 11-09-2024 ambulatory Mic Ruiz Facility:[facility] Start: 05-09-2024 End: 05-09-2024 ambulatory MILANA MARIE Facility:[facility] Start: 05-09-2024 End: 05-09-2024 Patient encounter procedure Edilma Nobles MD Work Phone: Cardiology Comment on above: Coronary artery dise ase involving buckland coronary artery of buckland heart without angina pectoris (Primary Dx); Dilated aortic root (HCC); Primary hypertension; Other hyperlipidemia Start: 04-08-2024 End: 04-08-2024 ambulatory Milana Marie Facility:[facility] Start: 02-26-2024 End: 02-26-2024 ambulatory MILANA MARIE Facility:[facility] Start: 09-14-2023 End: 09-14-2023 ambulatory MILANA MARIE Facility:[facility] Start: 09-14-2023 End: 09-14-2023 Patient encounter procedure Edilma Nobles MD Work Phone: Cardiology Comment on above: Coronary artery dise ase involving buckland coronary artery of buckland heart without angina pectoris (Primary Dx); Dilated aortic root (HCC); Primary hypertension; Other hyperlipidemia Start: 03-17-2023 End: 03-17-[address] Milana Marie Work Phone: [facility] Work Phone: Start: 03-17-2023 End: 03-17-[address] Milana Marie Work Phone: [facility] Work Phone: Start: 02-13-2023 ambulatory MILANA MARIE [facility] ility:[facility] Start: 12-05-2022 Non-patient / Non-visit Dr. Christian Marie Work Phone: [facility] Work Phone: Start: 12-04-2022 Non-patient / Non-visit Dr. Christian Marie Work Phone: [facility] Work Phone: Start: 12-04-2022 End: 12-05-2022 Evaluation and management of inpatient Dr. Milana Marie Work Phone: [facility] Work Phone: Start: 12-04-2022 End: 12-05-[address] Milana Marie Work Phone: [facility] Work Phone: Start: 11-17-2022 End: 11-17-[address] Milana Marie Work Phone: [facility] Work Phone: Start: 09-08-2022 End: 09-08-2022 ambulatory [facility] Work Phone: Start: 09-08-2022 End: 09-08-[address] [facility] Start: 10-28-2021 End: 10-28-2021 Patient encounter procedure Edilma Nobles MD Work Phone: Cardiology Comment on above: Coronary artery dise ase involving buckland coronary artery of buckland heart without angina pectoris (Primary Dx); Other hyperlipidemia; Primary hypertension; Screening for ischemic heart disease; Obesity, Class I, BMI 30-34.9; Dilated aortic root (HCC) Start: 10-17-2021 Telephone encounter Edilma Nobles MD Work Phone: Cardiology Comment on above: Appointment Start: 10-09-2021 End: 10-09-2021 ambulatory [facility] Work Phone: Start: 10-09-2021 End: 10-09-2021 Patient encounter procedure [facility] Start: 09-25-2021 End: 09-25-2021 Patient encounter procedure [facility] Start: 09-16-2021 End: 09-16-2021 Patient encounter procedure [facility] Start: 08-30-2021 End: 08-30-2021 [address] [facility] Start: 10-12-2017 Patient encounter SELF SELF [facility] Start: 09-07-2017 Patient encounter VETO Faust [facility] Start: 08-17-2017 Patient encounter SELF SELF [facility] Start: 08-03-2017 Patient encounter SELF SELF [facility] Start: 07-27-[address] [facility] Start: 07-24-2017 Patient encounter MELVINA [facility] Start: 07-21-2017 End: 07-22-[address] [facility] Start: 07-14-2017 Patient encounter BRITTON Zapata JAD [facility] Start: 07-06-2017 Patient encounter BRITTON Zapata JAD [facility] Start: 06-29-2017 Patient encounter BRITTON Zapata JAD [facility] Start: 06-17-2017 End: 06-24-2017 Evaluation and management of inpatient MILANA MISHRA [facility] Start: 06-17-2017 End: 06-17-2017 Emergency department patient visit Physician Amanda Willoughby [facility] Procedures Date Procedure Procedure Detail Performing Clinician Start: 11-09-2024 Prostate specific an tigen measurement Dr. Milana Marie MD Work Phone: Comment on above: This test was perfor med using the [employer] tPSA method. Measured values of a patient sample can vary depending on the testing procedure used. PSA values determined on patient samples by different testing procedures cannot be used interchangeably. If there is a change in PSA assays while monitoring therapy, sequential testing should be performed to confirm baseline values. Start: 12-04-2022 Plain X-ray of hip Dr. Milana Marie Work Phone: Start: 12-04-2022 Total Hip Replacemen t Robotic Arm Assist (Left) Dr. Milana Marie Work Phone: Start: 11-20-2022 Nasal Screen MRSA/MSSA Dr. Milana Marie Work Phone: Start: 11-20-2022 Plain chest X-ray Dr. French Marie Work Phone: Start: 11-17-2022 MRI of lower extremity Dr. Milana Marie Work Phone: Start: 11-05-2021 Lipid 1996 panel - S brent or Plasma Edilma Nobles MD Work Phone: Start: 10-09-2021 CT of soft tissues o f neck with contrast Start: 09-25-2021 Positron emission tomography with computed tomography Start: 09-16-2021 CT of chest Start: 06-17-2017 Blood count hematocrit Physician No Family Start: 06-17-2017 Blood count hemoglobin Physician No Family Start: 06-17-2017 PLATELET MAP, TEG CITRATED Physician No Family Start: 06-17-2017 TYPE AND SCREEN Physici an No Family Start: 06-17-2017 EKG 12-LEAD Physician No Family Start: 06-17-2017 Radiologic examinati on tibia & fibula 2 views Physician No Family Start: 06-17-2017 Radiologic examinati on femur minimum 2 views Physician No Family Start: 06-17-2017 Ct cervical spine w/ o contrast material Physician No Family Start: 06-17-2017 Ct head/brain w/o co ntrast material Physician No Family Start: 06-17-2017 Radiologic examinati on pelvis 1/2 views Physician No Family Start: 06-17-2017 ANION GAP Physician No Family Start: 06-17-2017 BASIC METABOLIC PANEL P hysician No Family Start: 06-17-2017 CBC WITH AUTO DIFFERENTIAL Physician No Family Start: 06-17-2017 GLOMERULAR FILTRATIO N RATE, ESTIMATED Physician No Family Start: 06-17-2017 OSMOLALITY Physician No Family Start: 06-17-2017 PROTIME-INR Physician No Family Plan of Treatment Date Care Activity Detail Author Start: 11-05-2026 Lipid panel Lipid Screening [facility] Start: 05-09-2025 BP Controlled (<130/80) BP Controlle d (<130/80) [facility] Start: 01-02-2025 End: 01-02-2025 Patient encounter procedure 01/02/2025 11:40 AM EST Office Visit Cardiology [address] [place] [address] Edilma Nobles MD [address] [place] [address] 6 month follow up Cardiology Comment on above: 6 month follow up Start: 11-18-2024 Plain Radiography of Thoracic Spine Thoracic Spine 2 Views [facility] Start: 11-18-2024 X-ray of lumbosacral spine L/S Spine Min 4 Views [facility] Start: 11-18-2024 XR Spine Lumbar and Sacrum GE 4 Views [facility] Start: 11-18-2024 XR Thoracic spine Views [facility] Start: 11-05-2024 Diabetes Screening Diabetes Screenin g [facility] Start: 05-09-2024 End: 05-09-2024 Patient encounter procedure 05/09/2024 1:40 PM EDT Office Visit Cardiology [address] [id number] Edilma Nobles MD [address] [facility] [address] [place] [address] 8 month follow up Cardiology Comment on above: 8 month follow up Start: 2024 RSV Vaccine (1 - 1-d ose 75+ series) RSV Vaccine (1 - 1-dose 75+ series) [facility] Start: 02-26-2024 End: 02-26-2024 Patient encounter procedure 02/26/2024 1:00 PM EST Office Visit Cardiology [address] [place], [place] [id number] Dilated aortic root (HCC) [I77.810] Cardiology Comment on above: Dilated aortic root (HCC) [I77.810] Start: 02-17-2024 Advance Directive Discussion Advance Directive Discussion [facility] Start: 02-17-2024 End: 09-13-2024 Echocardiography ECHO Cardiology Routine Dilated aortic root (HCC) Expected: 02/17/2024, Expires: 09/13/2024 [facility] Work Phone: Comment on above: Expected: 02/17/2024 , Expires: 09/13/2024 Start: 10-18-2023 Covid-19 Vaccine ( season) Covid-19 Vaccine () [facility] Start: 10-18-2023 Influenza vaccination Influenza Vacc ine (#1) [facility] Start: 02-16-2023 Advance Directive Discussion Advance Directive Discussion [facility] Start: 12-05-2022 Provision of overbed trapeze [facility] Start: 12-05-2022 Patient discharge [facility] Start: 12-04-2022 Following clinical p athway protocol [facility] Start: 12-04-2022 Anesthesia open tota l hip arthroplasty ANESTH HIP ARTHROPLASTY [facility] Start: 12-04-2022 Arthrp acetblr/prox fem prostc agrft/algrft TOTAL HIP ARTHROPLASTY [facility] Start: 12-04-2022 Admission procedure [facility] Start: 12-04-2022 Recommendation to co mameue with treatment [facility] Start: 12-04-2022 Ambulation therapy management [facility] Start: 12-04-2022 Application of device [facility] Start: 12-04-2022 Assessment of risk o f venous thromboembolism [facility] Start: 12-04-2022 Catheterization of vein [facility] Start: 12-04-2022 Consultation [facility] Start: 12-04-2022 Exercises [facility] Start: 12-04-2022 Following clinical p athway protocol [facility] Start: 12-04-2022 Incentive spirometry [facility] Start: 12-04-2022 Introduction of urin rao catheter [facility] Start: 12-04-2022 Measuring intake and output [facility] Start: 12-04-2022 Neurovascular assessment [facility] Start: 12-04-2022 Patient education [facility] Start: 12-04-2022 Procedure discontinued [facility] Start: 12-04-2022 Provision of activit y privileges [facility] Start: 12-04-2022 Provision of overbed trapeze [facility] Start: 12-04-2022 Referral to occupati onal therapist [facility] Start: 12-04-2022 Referral to service [facility] Start: 12-04-2022 Vital signs measurements [facility] Start: 12-04-2022 Wound care [facility] Start: 12-04-2022 End: 12-04-2022 [facility] Start: 12-04-2022 [facility] Start: 11-05-2022 Hepatitis B surface antibody level LDL Cholesterol [facility] Start: 10-17-2022 Covid-19 Vaccine () Covid-19 Vaccine () [facility] Start: 10-28-2021 End: 12-28-2021 Alanine aminotransferase [Enzymatic activity/volume] in Serum or Plasma ALT/SGPT Lab Routine Other hyperlipidemia Expected: 10/28/2021, Expires: 12/28/2021 [facility] Work Phone: Comment on above: Expected: 10/28/2021 , Expires: 12/28/2021 Start: 10-28-2021 End: 12-28-2021 Aspartate aminotransferase [Enzymatic activity/volume] in Serum or Plasma AST/SGOT BLD Lab Routine Other hyperlipidemia Expected: 10/28/2021, Expires: 12/28/2021 [facility] Work Phone: Comment on above: Expected: 10/28/2021 , Expires: 12/28/2021 Start: 10-28-2021 End: 12-28-2021 Basic metabolic 2000 panel - Serum or Plasma BASIC METABOLIC PNL Lab Routine Coronary artery disease involving buckland coronary artery of buckland heart without angina pectoris Expected: 10/28/2021, Expires: 12/28/2021 [facility] Work Phone: Comment on above: Expected: 10/28/2021 , Expires: 12/28/2021 Start: 10-28-2021 End: 12-28-2021 Lipid 1996 panel - Serum or Plasma LIPID PANEL BASIC Lab Routine Other hyperlipidemia Expected: 10/28/2021, Expires: 12/28/2021 [facility] Work Phone: Comment on above: Expected: 10/28/2021 , Expires: 12/28/2021 Start: 10-17-2021 Influenza vaccination INFLUENZA (#1) [facility] Start: 05-31-2021 COVID-19 VACCINE (4 - Booster for Moderna series) COVID-19 VACCINE (4 - Booster for Moderna series) [facility] Start: 02-16-2021 ADVANCE DIRECTIVE DISCUSSION ADVANCE DIRECTIVE DISCUSSION [facility] Start: 06-18-2017 Urine microalbumin profile DTa P,Tdap,Td Vaccine (1 - Tdap) [facility] Start: 11-15-2016 Pneumococcal Vaccine : 50+ (2 of 2 - PCV) Pneumococcal Vaccine: 50+ (2 of 2 - PCV) [facility] Start: 11-15-2016 Pneumococcal Vaccine : 65+ (2 of 2 - PCV) Pneumococcal Vaccine: 65+ (2 of 2 - PCV) [facility] Start: 2014 PNEUMOCOCCAL: 65+ (1 - PCV) PNEUMOCOCCAL: 65+ (1 - PCV) [facility] Start: 2009 RSV Vaccine (1 - 1-d ose 60+ series) RSV Vaccine (1 - 1-dose 60+ series) [facility] Start: 04-21-1999 Influenza vaccination LUNG CANCER [facility] Start: 04-21-1999 Screening for malign ant neoplasm of lung Lung Cancer Screening [facility] Start: 04-21-1999 SHINGRIX VACCINE (1 of 2) [facility] GRIX VACCINE (1 of 2) [facility] Start: 1994 COLOGUARD (FIT-DNA) COLOGUARD (FIT-D NA) [facility] Start: 1994 Colonoscopy COLONOSCOPY [facility] Start: 1994 COLORECTAL CANCER SCREENING COLORECTAL CANCER SCREENING [facility] Start: [address] COLONOGRAPHY [facility] Start: 1994 DIABETES SCREEN DIABETES SCREEN [facility] Start: 1994 FECAL OCCULT BLOOD FECAL OCCULT BLOO D [facility] Start: 1994 Screening for malign ant neoplasm of colon [facility] Start: 1994 SIGMOIDOSCOPY SIGMOIDOSCOPY [facility] Start: 1984 LIPID SCREEN LIPID SCREEN [facility] Start: 1968 Urine microalbumin profile DTAP,TDAP ,TD (1 - Tdap) [facility] Start: 04-21-1967 ANNUAL PCP TEAM METER READER RUDDY DISEASE VISIT ANNUAL PCP TEAM CHRONIC DISEASE VISIT [facility] Start: 04-21-1967 Anxiety Screening Anxiety Screening [facility] Start: 04-21-1967 BP CONTROLLED (<130/80) BP CONTROLLE D (<130/80) [facility] Start: 04-21-1967 Depression Screening Depression Scre ening [facility] Start: 04-21-1967 Hepatitis B surface antibody level LDL CHOLESTEROL [facility] Start: 04-21-1967 HEPATITIS C SCREENING HEPATITIS C [facility] Start: 04-21-1967 Hepatitis C screening Hepatitis C [facility] Start: 1961 Adult depression scr eening assessment DEPRESSION SCREENING [facility] Start: 04-21-1955 PNEUMOCOCCAL: 65+ (1 - PCV) PNEUMOCOCCAL: 65+ (1 - PCV) [facility] Start: 1949 COVID-19 VACCINE (#1) COVID-19 VACCI NE (#1) [facility] Start: 1949 ABDOMINAL AORTIC ANE URYSM SCREENING ABDOMINAL AORTIC ANEURYSM SCREENING [facility] Start: 1949 Abdominal aortic ane urysm screening Abdominal Aortic Aneurysm Screening [facility] End: 10-17-2022 ECG COMPLETE ECG COMPLETE ECG Routine Screening for ischemic heart disease 1 Occurrences starting 10/17/2021 until 10/17/2022 [facility] Work Phone: Comment on above: 1 Occurrences starti ng 10/17/2021 until 10/17/2022 Patient referral [facility] Work Phone: [facility] Immunizations Immunization Date Immunization Notes Care Provider Rupert figueroa 12-16-2022 influenza virus vacc ine, unspecified formulation Edilma Nobles MD Work Phone: [facility] Payers Date Payer Category Payer Self-pay [id number] 2021 Medicare MMO MEDICARE MMO MEDADVANTAGE O [id number] 2021-Present [phone] [place] [id number] [facility] [id number] 2021 Medicare (Managed Care) MMO [employer] DVANTAGE HMO [id number] 2017 Unknown [id number] 2017 Medicare [id number] 2005 Unknown [employer]UE CARD PPO OOS [id number] 2005-Present [phone] [address] [place] [address] PPO [id number] Unknown [id number] Unknown [id number] Unknown [id number] Unknown [id number] Social History Date Type Detail Facility [facility] Work Phone: Start: 1950 Sex Assigned At Male [facility] Start: 10-28-2021 End: 11-18-2024 Tobacco smoking status [facility] Smokes tobacco daily [facility] History of tobacco use Cigarette Smoker [facility] Start: 05-15-2006 Alcohol intake Not Asked [facility] Start: 1950 Sex Assigned At Not on file [facility] Start: 10-28-2021 End: 01-19-2023 Cigarettes smoked current (pack per day) - Reported 1 [facility] Start: 10-28-2021 End: 05-09-2024 Tobacco use and exposure Smokeless tobacco non-user [facility] Start: 10-28-2021 End: 05-09-2024 Alcohol intake Ex-drinker (finding) [facility] Start: 12-04-2022 End: 12-05-2022 Tobacco smoking status [facility] Unknown if ever smoked [facility] Start: 01-19-2023 End: 09-14-2023 Tobacco use panel [facility] National Score (1-10 0), lower number is lower risk 48 [facility] Start: 08-07-2022 Gender identity Identifies as male gender (finding) [facility] Start: 08-07-2022 Sexual orientation Heterosexual (fin taco) [facility] Medical Equipment Procedure Code Equipment Code Equipment Origin al Text Equipment Identifier Dates ([id number]) Ceramic femoral head prosthesis [id number] FDA Start: 12-04-2022 ([id number]) Coated hip femur prosthesis, modular ()[id number] FDA Start: 12-04-2022 ([id number]) Non-constrained polyethylene acetabular liner ()[id number] FDA Start: 12-04-2022 ([id number]) Acetabular shell ()[id number] FDA Start: 12-04-2022 ([id number]) Orthopaedic bone screw, non-bioabsorbable, sterile ()[id number] FDA Start: 12-04-2022 Goals Date Patient Goal Desired Activity /State Functional Status Date Assessment Result Facility 12-05-2022 Functional status Ambulates [facility] Work Phone: Mental Status Date Assessment Result Facility 12-05-2022 Cognitive function Voice/Name [facility] Work Phone: Clinical Notes 10-17-2021 to 05-09-2024 Edilma Nobles MD - 05/09/2024 1:40 PM EDTPatient InstructionsHedEdilma carpenter MD - 09/14/2023 10:40 AM EDT Note Date & Type Note Facility 05-09-2024 History of Present illness Narrative Images from the original note were not included. [facility] Cardiology ([address]) [address] [facility] [address] OUTPATIENT VISIT DATE 05/09/2024 PRIMARY CARE PHYSICIAN: CORBIN MARROQUIN [address] [place] [address] HISTORY OF PRESENT ILLNESS: Mr. Urbina is a 74 year old gentleman with mild coronary artery disease on prior catheterization, dyslipidemia, hypertension, dilated aortic root, PVCs, ongoing smoking (cigars) and diabetes ([id number]) who presents the office for routine follow-up. Patient has been doing well from a functional standpoint. He has no symptoms concerning for angina. 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 He has had no limitations in his functional capacity. He denies shortness of breath or dyspnea on exertion. He has not had symptoms concerning for congestive heart failure including PND, orthopnea, or lower extremity edema. PAST MEDICAL HISTORY Diagnosis Date Aortic root dilation (HCC) Benign essential hypertension CAD (coronary artery disease) Mitral regurgitation PVC (premature ventricular contraction) PAST SURGICAL HISTORY Procedure Laterality Date PAST SURGICAL HISTORY OF benign kidney tumor removed 1998 PAST SURGICAL HISTORY OF Right 2015 Shoulder PAST SURGICAL HISTORY OF 06/2017 Skin graft onb right left due to degloved TOTAL HIP REPLACEMENT Left 12/04/2022 SOCIAL HISTORY Social History Tobacco Use Smoking status: Every Day Current packs/day: 1.00 Average packs/day: 1 pack/day for 20.0 years (20.0 ttl pk-yrs) Types: Cigarettes Smokeless tobacco: Never Vaping Use Vaping status: Never Used Substance Use Topics Alcohol use: Not Currently Drug use: Never FAMILY HISTORY Problem Relation Age of Onset Coronary Artery Disease Father None Mother some memory loss ALLERGIES: ALLERGIES Allergen Reactions Procardia [Nifedipi* Intolerance MEDICATIONS: metoprolol succinate ER (TOPROL XL) 25 mg 24 hr tablet Take 1 tablet by mouth once daily. MAGNESIUM ORAL Take 800 mg by mouth once daily. COQ10, UBIQUINOL, ORAL Take by mouth once daily. lisinopril (ZESTRIL, PRINIVIL) 40 mg tablet Take 1 tablet by mouth once daily. metFORMIN (GLUCOPHAGE) 500 mg tablet Take 2 tablets by mouth once daily. atorvastatin (LIPITOR) 40 mg tablet Take 1 tablet by mouth once daily. amLODIPine (NORVASC) 2.5 mg tablet Take 1 tablet by mouth once daily. glipiZIDE (GLUCOTROL) 5 mg tablet Take 1 tablet by mouth twice daily before meals. (Patient not taking: Reported on 04/28/2022) THERAPEUTIC MULTIVITAMIN TAB Take one(1) tablet daily. (Patient not taking: Reported on 04/28/2022) ASPIRIN 81 MG TAB Take by mouth. Takes every Thursday, Thursday and Thursday REVIEW OF SYSTEMS: Review of Systems Constitutional: Negative for chills, fever, malaise/fatigue and weight loss. HENT: Negative for hearing loss and sore throat. Eyes: Negative for blurred vision and double vision. Respiratory: Negative. Cardiovascular: Negative. Gastrointestinal: Negative. Genitourinary: Negative for dysuria, frequency, hematuria and urgency. Musculoskeletal: Negative. Skin: Negative. Neurological: Negative for dizziness, seizures, loss of consciousness, weakness and headaches. Endo/Heme/Allergies: Negative for environmental allergies. Does not bruise/bleed easily. Psychiatric/Behavioral: Negative for depression. PHYSICAL EXAMINATION: BP 118/70 Pulse 85 Resp 14 Ht 6' 1 (1.85m) Wt 242 lb (109.8kg) SpO2 98% BMI 31.93 kg/(m^2). General: Pleasant gentleman sitting appears comfortable no apparent distress. He is alert and oriented x3 HEENT: Carotid upstrokes are brisk bilaterally without bruits no JVD appreciated. Pulmonary: Lungs are clear no rales, wheezes, or rhonchi. Cardiovascular: Normal S1, S2 with regular rate and rhythm. No murmurs, rubs, or gallops Extremities: Warm, well-perfused, no lower extremity edema. 2+ distal pulses. CARDIOVASCULAR MEDICINE TESTING: Cardiac catheterization [facility] 10/18/2020: Left ventricle: Systolic function is normal. The estimated ejection fraction is 55-60% First diagonal: Proximal vessel lesion: There is a 80% stenosis Left circumflex: Mild disease LAD: Mild disease RCA: Mild disease Echocardiogram 02/26/2024: - Exam indication: Ascending aortic aneurysm - The left ventricle is normal in size. Left ventricular systolic function is normal. EF = 59 5% (2D biplane) Grade I left ventricular diastolic dysfunction. - The right ventricle is normal in size. Right ventricular systolic function is normal. - The visualized aorta is dilated with a maximal dimension of 4.6 cm. - Exam was compared with the prior echocardiographic exam performed on 08/08/2022, no significant change. Echocardiogram 08/08/2022: - Technically difficult exam due to body habitus. - Exam indication: Ascending aortic aneurysm - The left ventricle is normal in size. Left ventricular systolic function is normal. EF = 55 5% (visual est.) Indeterminate left ventricular diastolic dysfunction. - The right ventricle is normal in size. Right ventricular systolic function is normal. - The visualized aorta is dilated with a maximal dimension of 4.6 cm. - The patient has not had a prior CC echocardiographic exam for comparison. Echocardiogram 09/22/2019 Left ventricle: The cavity size is normal. Wall thickness is mildly increased. Systolic function is normal. Estimated ejection fraction 60-65%. Wall motion is normal. Normal diastolic function. Aortic valve: Possibly bicuspid Aortic root: The aortic root is mildly dilated 4.2 cm. Ascending aorta 4.0 cm. Right ventricle: RV systolic pressure by Doppler is 27 mmHg Zio Monitor 12/25-01/07/2023: Patient had a min HR of 53 bpm, max HR of 167 bpm, and avg HR of 76 bpm. Predominant underlying rhythm was Sinus Rhythm. First Degree AV Block was present. 288 Ventricular Tachycardia runs occurred, the run with the fastest interval lasting 5 beats with a max rate of 167 bpm, the longest lasting 6 beats with an avg rate of 125 bpm. Isolated SVEs were rare (<1.0%), and no SVE Couplets or SVE Triplets were present. Isolated VEs were occasional (3.3%, [id number]), VE Couplets were rare (<1.0%, 3665), VE Triplets were rare (<1.0%, 548). Ventricular Bigeminy and Trigeminy were present. CTA Chest 02/14/2023: IMPRESSION: 1. Moderate dilation of the mid ascending aorta (4.7 cm, 13.4 cm2, 7.2 cm2/m) and mild ectasia of the aortic root (4.2 cm, 13.2 cm2). The remaining thoracic aorta is normal in course, caliber and has minimal atherosclerotic changes. No acute aortic pathology identified. I have personally reviewed the Electrocardiogram, Laboratory Testing, Echocardiogram, and Stress Test: Electrocardiogram. IMPRESSION: Mr. Urbina is a 74 year old gentleman with mild coronary artery disease noted on catheterization October 2020, possible bicuspid aortic valve with mildly dilated aortic root, ongoing smoking, hypertension, dyslipidemia, and diabetes [id number] who is here today for routine follow-up. PLAN AND RECOMMENDATIONS: 1. Coronary artery disease involving buckland coronary artery of buckland heart without angina pectoris - ICD9: 414.01, ICD10: I25.10 (primary diagnosis) Patient doing well without symptoms concerning for angina. Continue current medical therapy and risk factor modification 2. Dilated aortic root (HCC) - ICD9: 447.71, ICD10: I77.810 stable at 4.6 cm on most recent echocardiogram February 2024. 3. Primary hypertension - ICD9: 401.9, ICD10: I10 Adequate controlled on current regimen. 4. Other hyperlipidemia - ICD9: 272.4, ICD10: E78.49 Maintained on a atorvastatin 40 mg daily. Fasting blood work has been followed by his primary care physician. Edilma Nobles MD documented in this encounter [facility] 05-09-2024 Note HNO ID: [id number] Author: EDILMA NOBLES MD Service: ? Author Type: Physician Type: Progress Notes Filed: 05/09/2024 14:03 Note Text: [facility] [address] [facility] [id number] OUTPATIENT VISIT DATE 05/09/2024 PRIMARY CARE PHYSICIAN: CORBIN [address] [place] [id number] HISTORY OF PRESENT ILLNESS: Mr. Urbina is a 74 year old gentleman with mild coronary artery disease on prior catheterization, dyslipidemia, hypertension, dilated aortic root, PVCs, ongoing smoking (cigars) and diabetes ([id number]) who presents the office for routine follow-up. Patient has been doing well from a functional standpoint. He has no symptoms concerning for angina. 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 He has had no limitations in his functional capacity. He denies shortness of breath or dyspnea on exertion. He has not had symptoms concerning for congestive heart failure including PND, orthopnea, or lower extremity edema. PAST MEDICAL HISTORY Diagnosis Date Aortic root dilation (HCC) Benign essential hypertension CAD (coronary artery disease) Mitral regurgitation PVC (premature ventricular contraction) PAST SURGICAL HISTORY Procedure Laterality Date PAST SURGICAL HISTORY OF benign kidney tumor removed 1998 PAST SURGICAL HISTORY OF Right 2015 Shoulder PAST SURGICAL HISTORY OF 06/2017 Skin graft onb right left due to degloved TOTAL HIP REPLACEMENT Left 12/04/2022 SOCIAL HISTORY Social History Tobacco Use Smoking status: Every Day Current packs/day: 1.00 Average packs/day: 1 pack/day for 20.0 years (20.0 ttl pk-yrs) Types: Cigarettes Smokeless tobacco: Never Vaping Use Vaping status: Never Used Substance Use Topics Alcohol use: Not Currently Drug use: Never FAMILY HISTORY Problem Relation Age of Onset Coronary Artery Disease Father None Mother some memory loss ALLERGIES: ALLERGIES Allergen Reactions Procardia [Nifedipi* Intolerance MEDICATIONS: metoprolol succinate ER (TOPROL XL) 25 mg 24 hr tablet Take 1 tablet by mouth once daily. MAGNESIUM ORAL Take 800 mg by mouth once daily. COQ10, UBIQUINOL, ORAL Take by mouth once daily. lisinopril (ZESTRIL, PRINIVIL) 40 mg tablet Take 1 tablet by mouth once daily. metFORMIN (GLUCOPHAGE) 500 mg tablet Take 2 tablets by mouth once daily. atorvastatin (LIPITOR) 40 mg tablet Take 1 tablet by mouth once daily. amLODIPine (NORVASC) 2.5 mg tablet Take 1 tablet by mouth once daily. glipiZIDE (GLUCOTROL) 5 mg tablet Take 1 tablet by mouth twice daily before meals. (Patient not taking: Reported on 04/28/2022) THERAPEUTIC MULTIVITAMIN TAB Take one(1) tablet daily. (Patient not taking: Reported on 04/28/2022) ASPIRIN 81 MG TAB Take by mouth. Takes every Thursday, Thursday and Thursday REVIEW OF SYSTEMS: Review of Systems Constitutional: Negative for chills, fever, malaise/fatigue and weight loss. HENT: Negative for hearing loss and sore throat. Eyes: Negative for blurred vision and double vision. Respiratory: Negative. Cardiovascular: Negative. Gastrointestinal: Negative. Genitourinary: Negative for dysuria, frequency, hematuria and urgency. Musculoskeletal: Negative. Skin: Negative. Neurological: Negative for dizziness, seizures, loss of consciousness, weakness and headaches. Endo/Heme/Allergies: Negative for environmental allergies. Does not bruise/bleed easily. Psychiatric/Behavioral: Negative for depression. PHYSICAL EXAMINATION: BP 118/70 Pulse 85 Resp 14 Ht 6' 1 (1.85m) Wt 242 lb (109.8kg) SpO2 98% BMI 31.93 kg/(m2). General: Pleasant gentleman sitting appears comfortable no apparent distress. He is alert and oriented x3 HEENT: Carotid upstrokes are brisk bilaterally without bruits no JVD appreciated. Pulmonary: Lungs are clear no rales, wheezes, or rhonchi. Cardiovascular: Normal S1, S2 with regular rate and rhythm. No murmurs, rubs, or gallops Extremities: Warm, well-perfused, no lower extremity edema. 2+ distal pulses. CARDIOVASCULAR MEDICINE TESTING: Cardiac catheterization [facility] 10/18/2020: Left ventricle: Systolic function is normal. The estimated ejection fraction is 55-60% First diagonal: Proximal vessel lesion: There is a 80% stenosis Left circumflex: Mild disease LAD: Mild disease RCA: Mild disease Echocardiogram 02/26/2024: - Exam indication: Ascending aortic aneurysm - The left ventricle is normal in size. Left ventricular systolic function is normal. EF = 59 ? 5% (2D biplane) Grade I left ventricular diastolic dysfunction. - The right ventricle is normal in size. Right ventricular systolic function is normal. - The visualized aorta is dilated with a maximal dimension of 4.6 cm. - Exam was compared with the prior echocardiographic (more content not included)... [facility] 09-14-2023 Instructions Edilma Nobles MD - 09/14/2023 10:49 AM EDT Echocardiogram in Feb 2024 documented in this encounter [facility] 09-14-2023 History of Present illness Narrative Images from the original note were not included. [facility] Cardiology ([address]) [address] [facility] [id number] OUTPATIENT VISIT DATE 09/14/2023 PRIMARY CARE PHYSICIAN: CORBIN MARROQUIN [address] [place] [id number] HISTORY OF PRESENT ILLNESS: Mr. Urbina is a 73 year old gentleman with mild coronary artery disease on prior catheterization, dyslipidemia, hypertension, dilated aortic root, PVCs, ongoing smoking (cigars) and diabetes ([id number]) who presents the office for routine follow-up. Patient continues to do well from a functional standpoint. He still works part-time. He has not had symptoms of chest pain, chest pressure, or shortness of breath on exertion. He has no symptoms concerning for congestive heart failure including PND, orthopnea, or lower extremity edema. PAST MEDICAL HISTORY Diagnosis Date Aortic root dilation (HCC) Benign essential hypertension CAD (coronary artery disease) Mitral regurgitation PVC (premature ventricular contraction) PAST SURGICAL HISTORY Procedure Laterality Date PAST SURGICAL HISTORY OF benign kidney tumor removed 1998 PAST SURGICAL HISTORY OF Right 2015 Shoulder PAST SURGICAL HISTORY OF 06/2017 Skin graft onb right left due to degloved TOTAL HIP REPLACEMENT Left 12/04/2022 SOCIAL HISTORY Social History Tobacco Use Smoking status: Every Day Packs/day: 1.00 Years: 20.00 Additional pack years: 0.00 Total pack years: 20.00 Types: Cigarettes Smokeless tobacco: Never Vaping Use Vaping Use: Never used Substance Use Topics Alcohol use: Not Currently Drug use: Never FAMILY HISTORY Problem Relation Age of Onset Coronary Artery Disease Father None Mother some memory loss ALLERGIES: ALLERGIES Allergen Reactions Procardia [Nifedipi* Intolerance MEDICATIONS: metoprolol succinate ER (TOPROL XL) 25 mg 24 hr tablet Take 1 tablet by mouth once daily. MAGNESIUM ORAL Take 800 mg by mouth once daily. COQ10, UBIQUINOL, ORAL Take by mouth once daily. lisinopril (ZESTRIL, PRINIVIL) 40 mg tablet Take 1 tablet by mouth once daily. metFORMIN (GLUCOPHAGE) 500 mg tablet Take 2 tablets by mouth once daily. atorvastatin (LIPITOR) 40 mg tablet Take 1 tablet by mouth once daily. amLODIPine (NORVASC) 2.5 mg tablet Take 1 tablet by mouth once daily. ASPIRIN 81 MG TAB Take by mouth. Takes every Thursday, Thursday and Thursday glipiZIDE (GLUCOTROL) 5 mg tablet Take 1 tablet by mouth twice daily before meals. (Patient not taking: Reported on 04/28/2022) THERAPEUTIC MULTIVITAMIN TAB Take one(1) tablet daily. (Patient not taking: Reported on 04/28/2022) REVIEW OF SYSTEMS: Review of Systems Constitutional: Negative for chills, fever, malaise/fatigue and weight loss. HENT: Negative for hearing loss and sore throat. Eyes: Negative for blurred vision and double vision. Respiratory: Negative. Cardiovascular: Negative. Gastrointestinal: Negative. Genitourinary: Negative for dysuria, frequency, hematuria and urgency. Musculoskeletal: Negative. Skin: Negative. Neurological: Negative for dizziness, seizures, loss of consciousness, weakness and headaches. Endo/Heme/Allergies: Negative for environmental allergies. Does not bruise/bleed easily. Psychiatric/Behavioral: Negative for depression. PHYSICAL EXAMINATION: BP 134/76 Pulse 75 Wt 242 lb (109.8kg) SpO2 95% General: Pleasant gentleman sitting appears comfortable no apparent distress. He is alert and oriented x3 HEENT: Carotid upstrokes are brisk bilaterally without bruits no JVD appreciated. Pulmonary: Lungs are clear no rales, wheezes, or rhonchi. Cardiovascular: Normal S1, S2 with regular rate and rhythm. No murmurs, rubs, or gallops Remedies: Warm, well-perfused, no lower extremity edema. 2+ distal pulses. CARDIOVASCULAR MEDICINE TESTING: Cardiac catheterization [facility] 10/18/2020: Left ventricle: Systolic function is normal. The estimated ejection fraction is 55-60% First diagonal: Proximal vessel lesion: There is a 80% stenosis Left circumflex: Mild disease LAD: Mild disease RCA: Mild disease Echocardiogram 08/08/2022: - Technically difficult exam due to body habitus. - Exam indication: Ascending aortic aneurysm - The left ventricle is normal in size. Left ventricular systolic function is normal. EF = 55 5% (visual est.) Indeterminate left ventricular diastolic dysfunction. - The right ventricle is normal in size. Right ventricular systolic function is normal. - The visualized aorta is dilated with a maximal dimension of 4.6 cm. - The patient has not had a prior CC echocardiographic exam for comparison. Echocardiogram 09/22/2019 Left ventricle: The cavity size is normal. Wall thickness is mildly increased. Systolic function is normal. Estimated ejection fraction 60-65%. Wall motion is normal. Normal diastolic function. Aortic valve: Possibly bicuspid Aortic root: The aortic root is mildly dilated 4.2 cm. Ascending aorta 4.0 cm. Right ventricle: RV systolic pressure by Doppler is 27 mmHg Zio Monitor 12/25-01/07/2023: Patient had a min HR of 53 bpm, max HR of 167 bpm, and avg HR of 76 bpm. Predominant underlying rhythm was Sinus Rhythm. First Degree AV Block was present. 288 Ventricular Tachycardia runs occurred, the run with the fastest interval lasting 5 beats with a max rate of 167 bpm, the longest lasting 6 beats with an avg rate of 125 bpm. Isolated SVEs were rare (<1.0%), and no SVE Couplets or SVE Triplets were present. Isolated VEs were occasional (3.3%, [id number]), VE Couplets were rare (<1.0%, 3665), VE Triplets were rare (<1.0%, 548). Ventricular Bigeminy and Trigeminy were present. CTA Chest 02/14/2023: IMPRESSION: 1. Moderate dilation of the mid ascending aorta (4.7 cm, 13.4 cm2, 7.2 cm2/m) and mild ectasia of the aortic root (4.2 cm, 13.2 cm2). The remaining thoracic aorta is normal in course, caliber and has minimal atherosclerotic changes. No acute aortic pathology identified. I have personally reviewed the Electrocardiogram, Laboratory Testing, Echocardiogram, and Stress Test: Electrocardiogram. IMPRESSION: Mr. Urbina is a 72 year old gentleman with mild coronary artery disease noted on catheterization October 2020, possible bicuspid aortic valve with mildly dilated aortic root, ongoing smoking, hypertension, dyslipidemia, and diabetes [id number] who is here today for routine follow-up. PLAN AND RECOMMENDATIONS: 1. Coronary artery disease involving buckland coronary artery of buckland heart without angina pectoris - ICD9: 414.01, ICD10: I25.10 (primary diagnosis) Doing well without symptoms concerning for angina. Continue current medical therapy and risk factor modification - METOPROLOL SUCCINATE ER 25 MG TABLET,EXTENDED RELEASE 24 HR 2. Dilated aortic root (HCC) - ICD9: 447.71, ICD10: I77.810 Has been stable at 4.6-4.7 cm. Plan to repeat echocardiogram prior to next office visit - ECHO - PERFLUTREN LIPID MICROSPHERES 1.1 MG/ML INJECTION IN NS 10 ML - SODIUM CHLORIDE 0.9 % (FLUSH) INJECTION SYRINGE 3. Primary hypertension - ICD9: 401.9, ICD10: I10 Well-controlled on current regimen - METOPROLOL SUCCINATE ER 25 MG TABLET,EXTENDED RELEASE 24 HR 4. Other hyperlipidemia - ICD9: 272.4, ICD10: E78.49 Maintained on atorvastatin 40 mg daily. Fasting blood work has been followed by his primary care physician. Edilma Nobles MD documented in this encounter [facility] 09-14-2023 Note HNO ID: [id number] Author: EDILMA NOBLES MD Service: ? Author Type: Physician Type: Progress Notes Filed: 09/14/2023 11:41 Note Text: [facility] Cardiology ([address]) [address] [facility] [id number] OUTPATIENT VISIT DATE 09/14/2023 PRIMARY CARE PHYSICIAN: CORBIN [address] [place] [id number] HISTORY OF PRESENT ILLNESS: Mr. Urbina is a 73 year old gentleman with mild coronary artery disease on prior catheterization, dyslipidemia, hypertension, dilated aortic root, PVCs, ongoing smoking (cigars) and diabetes ([id number]) who presents the office for routine follow-up. Patient continues to do well from a functional standpoint. He still works part-time. He has not had symptoms of chest pain, chest pressure, or shortness of breath on exertion. He has no symptoms concerning for congestive heart failure including PND, orthopnea, or lower extremity edema. PAST MEDICAL HISTORY Diagnosis Date Aortic root dilation (HCC) Benign essential hypertension CAD (coronary artery disease) Mitral regurgitation PVC (premature ventricular contraction) PAST SURGICAL HISTORY Procedure Laterality Date PAST SURGICAL HISTORY OF benign kidney tumor removed 1998 PAST SURGICAL HISTORY OF Right 2014 Shoulder PAST SURGICAL HISTORY OF 06/2017 Skin graft onb right left due to degloved TOTAL HIP REPLACEMENT Left 12/04/2022 SOCIAL HISTORY Social History Tobacco Use Smoking status: Every Day Packs/day: 1.00 Years: 20.00 Additional pack years: 0.00 Total pack years: 20.00 Types: Cigarettes Smokeless tobacco: Never Vaping Use Vaping Use: Never used Substance Use Topics Alcohol use: Not Currently Drug use: Never FAMILY HISTORY Problem Relation Age of Onset Coronary Artery Disease Father None Mother some memory loss ALLERGIES: ALLERGIES Allergen Reactions Procardia [Nifedipi* Intolerance MEDICATIONS: metoprolol succinate ER (TOPROL XL) 25 mg 24 hr tablet Take 1 tablet by mouth once daily. MAGNESIUM ORAL Take 800 mg by mouth once daily. COQ10, UBIQUINOL, ORAL Take by mouth once daily. lisinopril (ZESTRIL, PRINIVIL) 40 mg tablet Take 1 tablet by mouth once daily. metFORMIN (GLUCOPHAGE) 500 mg tablet Take 2 tablets by mouth once daily. atorvastatin (LIPITOR) 40 mg tablet Take 1 tablet by mouth once daily. amLODIPine (NORVASC) 2.5 mg tablet Take 1 tablet by mouth once daily. ASPIRIN 81 MG TAB Take by mouth. Takes every Thursday, Thursday and Thursday glipiZIDE (GLUCOTROL) 5 mg tablet Take 1 tablet by mouth twice daily before meals. (Patient not taking: Reported on 04/28/2022) THERAPEUTIC MULTIVITAMIN TAB Take one(1) tablet daily. (Patient not taking: Reported on 04/28/2022) REVIEW OF SYSTEMS: Review of Systems Constitutional: Negative for chills, fever, malaise/fatigue and weight loss. HENT: Negative for hearing loss and sore throat. Eyes: Negative for blurred vision and double vision. Respiratory: Negative. Cardiovascular: Negative. Gastrointestinal: Negative. Genitourinary: Negative for dysuria, frequency, hematuria and urgency. Musculoskeletal: Negative. Skin: Negative. Neurological: Negative for dizziness, seizures, loss of consciousness, weakness and headaches. Endo/Heme/Allergies: Negative for environmental allergies. Does not bruise/bleed easily. Psychiatric/Behavioral: Negative for depression. PHYSICAL EXAMINATION: BP 134/76 Pulse 75 Wt 242 lb (109.8kg) SpO2 95% General: Pleasant gentleman sitting appears comfortable no apparent distress. He is alert and oriented x3 HEENT: Carotid upstrokes are brisk bilaterally without bruits no JVD appreciated. Pulmonary: Lungs are clear no rales, wheezes, or rhonchi. Cardiovascular: Normal S1, S2 with regular rate and rhythm. No murmurs, rubs, or gallops Remedies: Warm, well-perfused, no lower extremity edema. 2+ distal pulses. CARDIOVASCULAR MEDICINE TESTING: Cardiac catheterization [facility] 10/18/2020: Left ventricle: Systolic function is normal. The estimated ejection fraction is 55-60% First diagonal: Proximal vessel lesion: There is a 80% stenosis Left circumflex: Mild disease LAD: Mild disease RCA: Mild disease Echocardiogram 08/08/2022: - Technically difficult exam due to body habitus. - Exam indication: Ascending aortic aneurysm - The left ventricle is normal in size. Left ventricular systolic function is normal. EF = 55 ? 5% (visual est.) Indeterminate left ventricular diastolic dysfunction. - The right ventricle is normal in size. Right ventricular systolic function is normal. - The visualized aorta is dilated with a maximal dimension of 4.6 cm. - The patient has not had a prior CC echocardiographic exam for comparison. Echocardiogram 09/22/2019 Left ventricle: The cavity size is normal. Wal (more content not included)... [facility] 12-05-2022 Progress note Note Date/Time December 05, 2022 7:46am [facility] Medical Records Department [address] [place] [address] Progress Note - Orthopedic 12/05/22 0744 MR#: [id number] Acct: [id number] Name: GHISLAINE URBINA Jr. Rep #:[id number] : 1950 72 From: Vinh barrientos DO PCP: Dr. Milana Marie MD Status:ADM DANA Location: [place] [address] Subjective Subjective Patient seen and examined. Tolerating oral intake without nausea or vomiting. Denies any fevers or chills, chest pain or shortness of breath. Denies palpitations. Denies any new complaints. Pain controlled with current pain regimen. Up multiple times with therapy and nursing staff. Patient required straight catheterization x1, now voiding without difficulty. Patient had nonsustained run of ventricular tachycardia in the PACU yesterday requiring cardiac telemetry. Patient denies any symptoms at this time. Objective Data Objective Data Vital Signs: Vital Signs Temp Pulse Resp BP Pulse Ox O2 Del Method O2 Flow Rate 97.8 F 65 18 122/71 H 97 Room Air 4 12/05/22 05:51 12/05/22 05:51 12/05/22 05:51 12/05/22 05:51 12/05/22 05:51 12/05/22 05:51 12/04/22 13:15 Oxygen Flow Rate (L/min) 4 Oxygen Delivery Method Room Air Weight: 229 lb 4.492 oz Body Mass Index (BMI) 30.2 Intake & Output: Intake and Output for Last 24 Hours 12/03/22 12/04/22 12/05/22 23:59 23:59 23:59 Intake Total 2642.5 / 2642.5 530 / 530 Output Total 800 / 800 Balance 1842.5 / 1842.5 530 / 530 Lab / Micro Data 12/05/22 04:45 12/05/22 04:45 Labs: Laboratory Results - last 24 hr 12/04/22 08:16: POC Glucose 169 H 12/04/22 13:13: POC Glucose 189 H 12/05/22 04:45: WBC 12.2 H, RBC 3.82 L, Hgb 11.2 L, Hct 34.5 L, MCV 90.3, MCH 29.3, MCHC 32.5, RDW Std Deviation 43.0, RDW Coeff of Jason 13.2, Plt Count 237, MPV 10.2, Sodium 139, Potassium 4.1, Chloride 106, Carbon Dioxide 27.0, Anion Gap 6, BUN 19 H, Creatinine 0.86, Estim Creat Clear Calc 86.46, Est GFR (MDRD) Af Amer 112, Est GFR (MDRD) Non-Af 93, BUN/Creatinine Ratio 22.1 H, Glucose 181 H, Calcium 8.6 Micro: Microbiology 11/20/22 12:10 Swab (Method) Nasal Screen MRSA/MSSA - Final Radiography Diagnostic Testing: Radiology Impression Hip X-Ray 12/04/22 11:55 IMPRESSION: Left total hip arthroplasty, grossly anatomic in alignment. Electronically Signed: Lindsay Ceballos MD at 13:23 EDT , Physical Exam Narrative General - A&Ox3, NAD. VSS/AF Left lower extremity -incisional dressing C/D/I. SILT Sural, Saphenous, SPN, DPN, Tibial N. distributions. DP, PT 2+. BCR. DF, PF, EHL 5/5. No calf TTP. Assessment & Plan Assessment/Plan (1) Presence of left hip implant: PLAN: POD#1 s/p left robotic arm assisted total hip arthroplasty - Pain control - Medicine following for medical management - PT/OT-posterior hip precautions, weightbearing as tolerated left lower extremity - DVT PPX -Multimodal with aspirin, SCDs, SUZI hose and early mobilization - Case management - D/C planning Anticipate discharge home today if therapy goals are met and cleared from medical standpoint. 12/05/22 0750 <Electronically signed by Vinh Ortiz DO> Cosigner Signature (if applicable): CC: ~ Signed [facility] Work Phone: [phone] 556-813010-19-2023 Progress note Author Nicholas Dunham [facility] December 04, 2022 6:59pm Note Date/Time December 04, 2022 6 :59pm [facility] Medical Records Department [address] [facility] [place] [address] Progress Note - Hospitalist 12/04/22 1850 MR#: [id number] Acct: [id number] Name: YAHAIRAGHISLAINE SHERIDAN Rep #:[id number] : 1950 72 From: Nicholas Dunham DO PCP: Dr. Milana Marie MD Status:ADM DANA Location: [place] [address] Reason for Visit Reason for Visit: Diagnoses Encounter for other preprocedural examination (12/04/22) Subjective Subjective Patient was seen and examined at the request of orthopedic surgery for medical management, he underwent a left robotic total hip replacement today, during thattime patient was in PACU, he had several episodes of nonsustained V. tach-the longest of which was 8 beats long, patient was asymptomatic with these episodes of V. tach. I examined the patient when he got to PCU for postop care, I also talked with the patient's who was in the room at the time of my examination. Patient denies any chest pain. Patient follows up regularly with a levi maker (Dr. Cruz), I was nellie enough to obtain information from himby phone this afternoon. Patient underwent a heart catheterization approximately a year ago at [facility], he had an 80% blockage of a diagonal branch of a coronary artery, it was not felt this could be stented and the patient was treated with medical treatment. Patient also had an echocardiogram 2 months ago which showed a normal EF, no valvular heart disease, but he did have an ascending aortic aneurysm which was approximately 4.8 cm in diameter. I had a lengthy discussionwith the patient's levi maker by phone today, he recommended the patient come by as an outpatient in the next 2 weeks to have a Holter monitor applied, the plan is for him to have either a 30-day monitor or a 14-day monitor. Objective Data Objective Data Vital Signs: Vital Signs Temp Pulse Resp BP Pulse Ox O2 Del Method O2 Flow Rate 97.5 F L 84 17 129/83 H 94 Room Air 4 12/04/22 18:05 12/04/22 18:05 12/04/22 18:05 12/04/22 18:05 12/04/22 18:05 12/04/22 18:05 12/04/22 13:15 Oxygen Flow Rate (L/min) 4 Oxygen Delivery Method Room Air Weight: 104 kg Body Mass Index (BMI) 30.2 Intake & Output: Intake and Output for Last 24 Hours 12/02/22 12/03/22 12/04/22 23:59 23:59 23:59 Intake Total 2432 / 2432 Balance 2432 / 2432 Lab / Micro Data 11/20/22 12:10 11/20/22 12:10 Labs: Laboratory Results - last 24 hr 12/04/22 08:16: POC Glucose 169 H 12/04/22 13:13: POC Glucose 189 H Micro: Microbiology 11/20/22 12:10 Swab (Method) Nasal Screen MRSA/MSSA - Final Radiography Diagnostic Testing: Radiology Impression Hip X-Ray 12/04/22 11:55 IMPRESSION: Left total hip arthroplasty, grossly anatomic in alignment. Electronically Signed: Lindsay Ceballos MD at 13:23 EDT , Physical Exam Const alert, oriented x3, no apparent distress, average body habitus and healthy appearing General Appearance: cooperative, well kempt and well developed Orientation / Consciousness: awake, oriented to person, oriented to place and oriented to time HEENT normocephalic, head/scalp atraumatic and moist oral mucous membranes Eyes PERRL, EOMs intact bilaterally and conjunctivae normal Neck supple, no JVD, thyroid normal and no carotid bruits General: trachea midline Resp normal respiratory effort, no retractions, no use of accessory muscles and clearto auscultation bilaterally Auscultation: Negative for rales, rhonchi or wheezes Cardio regular rate, regular rhythm, S1 normal heart sound, S2 normal heart sound, no murmurs, no rub and no gallops GI normal to inspection, nondistended, normoactive bowel sounds, soft to palpation,non-tender and non-distended Extremity no clubbing, cyanosis or edema Skin no rashes or lesions noted Neuro oriented x3, CN's II-XII intact bilaterally, no focal motor deficits and no sensory deficits noted Sensorium / Orientation: awake, alert, oriented to person, oriented to place andoriented to time Speech: speech normal Psych affect normal Assessment & Plan Assessment/Plan (1) Diabetes mellitus: PLAN: Plan 1. Type 2 diabetes-patient takes oral medication for his diabetes (metformin)- I do not feel we need to monitor blood sugars, it is probable he will be discharged home tomorrow. Patient will remain on his metformin #2 coronary artery disease-this appears stable at this time, patient is on a statin and he will be taking aspirin for VTE prophylaxis when he leaves the hospital, I stressed that he should take a baby aspirin daily when he stops the prophylactic dose of aspirin for his VTE prevention #3 nonsustained V. tach-it is unknown what caused this today, patient will be monitored on telemetry, he will need to follow-up with his levi maker as an outpatient for application of either a 14-day Holter or 30-day Holter. Patient knows he may need a possible loop recorder. I discussed this with his and his daughter by phone today. #4 left hip osteoarthritis-postop day 0 robotic assisted left total hip arthroplasty-patient will be seen by PT and OT, he states he would like to be discharged home tomorrow if possible #5 hyperlipidemia-patient is on a statin Total clinical time spent by myself addressing the patient's medical issues, reviewing all of his data, and collaborating with patient's care team: 50- minutes Charges/Coding Visit Charges Inpatient E&M: 90246 Subs Hosp L3 12/04/22 7161 <Electronically signed by Nicholas Dunham DO> Cosigner Signature (if applicable): CC: ~ Signed [facility] Work Phone: [phone] 478-706010-19-2023 Procedure [facility] 10-28-2021 History of Present illness Narrative* Edilma Nobles MD - 10/28/2021 10:40 AM EDT Images from the original note were not included. [facility] SECTION OF REGIONAL CARDIOLOGY Cardiology ([facility]) [address] [facility] [address] OUTPATIENT VISIT DATE 10/28/2021 PRIMARY CARE PHYSICIAN: CORBIN MARROQUIN [address] [place] [address] REFERRING PHYSICIAN: SELF CHIEF COMPLAINT: New cardiology follow-up HISTORY OF PRESENT ILLNESS: Mr. Urbina is a 71 year old male who presents today to establish new cardiology follow-up. He has a history of mild coronary artery disease on prior catheterization, dyslipidemia, hypertension, dilated aortic root, PVCs, and diabetes ([id number]). He still works as a truck technician. He smokes a number of cigars per day. He has a prior history of shortness of breath which she says was brought on by use of Flomax. He has not had episodes of chest pain or pressure. His functional capacity remains adequate. He has not had symptoms concerning for CHF including PND, orthopnea, or lower extremity edema. PAST MEDICAL HISTORY Diagnosis Date Aortic root dilation (HCC) Benign essential hypertension CAD (coronary artery disease) Mitral regurgitation PVC (premature ventricular contraction) PAST SURGICAL HISTORY Procedure Laterality Date PAST SURGICAL HISTORY OF benign kidney tumor removed 1998 PAST SURGICAL HISTORY OF Right 2015 Shoulder PAST SURGICAL HISTORY OF 06/2017 Skin graft onb right left due to degloved SOCIAL HISTORY Social History Tobacco Use Smoking status: Every Day Packs/day: 1.00 Years: 20.00 Pack years: 20.00 Types: Cigarettes Smokeless tobacco: Never Vaping Use Vaping Use: Never used Substance Use Topics Alcohol use: Not Currently Drug use: Never FAMILY HISTORY Problem Relation Age of Onset Coronary Artery Disease Father None Mother some memory loss ALLERGIES: ALLERGIES No Known Allergies MEDICATIONS: lisinopril (ZESTRIL, PRINIVIL) 40 mg tablet Take 1 tablet by mouth once daily. metFORMIN (GLUCOPHAGE) 500 mg tablet Take 2 tablets by mouth once daily. atorvastatin (LIPITOR) 40 mg tablet Take 1 tablet by mouth once daily. amLODIPine (NORVASC) 2.5 mg tablet Take 1 tablet by mouth once daily. glipiZIDE (GLUCOTROL) 5 mg tablet Take 1 tablet by mouth twice daily before meals. THERAPEUTIC MULTIVITAMIN TAB Take one(1) tablet daily. ASPIRIN 81 MG TAB Take by mouth. Takes every Thursday, Thursday and Thursday REVIEW OF SYSTEMS: Review of Systems Constitutional: Negative for chills, fever, malaise/fatigue and weight loss. HENT: Negative for hearing loss and sore throat. Eyes: Negative for blurred vision and double vision. Respiratory: Negative. Cardiovascular: Negative. Gastrointestinal: Negative. Genitourinary: Negative for dysuria, frequency, hematuria and urgency. Musculoskeletal: Negative. Skin: Negative. Neurological: Negative for dizziness, seizures, loss of consciousness, weakness and headaches. Endo/Heme/Allergies: Negative for environmental allergies. Does not bruise/bleed easily. Psychiatric/Behavioral: Negative for depression. PHYSICAL EXAMINATION: BP 134/78 Pulse 76 Resp 14 Ht 6' 1 (1.85m) Wt 248 lb (112.5kg) SpO2 95% BMI 32.73 kg/(m^2). General: Pleasant gentleman sitting appears comfortable no apparent distress. He is alert and oriented x3 HEENT: Carotid upstrokes are brisk bilaterally without bruits no JVD appreciated. Pulmonary: Lungs are clear no rales, wheezes, or rhonchi. Cardiovascular: Normal S1, S2 with regular rate and rhythm. No murmurs, rubs, or gallops Remedies: Warm, well-perfused, no lower extremity edema. 2+ distal pulses. CARDIOVASCULAR MEDICINE TESTING: Cardiac catheterization [facility] 10/18/2020: Left ventricle: Systolic function is normal. The estimated ejection fraction is 55-60% First diagonal: Proximal vessel lesion: There is a 80% stenosis Left circumflex: Mild disease LAD: Mild disease RCA: Mild disease Echocardiogram 09/22/2019 Left ventricle: The cavity size is normal. Wall thickness is mildly increased. Systolic function isnormal. Estimated ejection fraction 60-65%. Wall motion is normal. Normal diastolic function. Aortic valve: Possibly bicuspid Aortic root: The aortic root is mildly dilated 4.2 cm. Ascending aorta 4.0 cm. Right ventricle: RV systolic pressure by Doppler is 27 mmHg I have personally reviewed the Electrocardiogram, Laboratory Testing, Echocardiogram, and Stress Test: Electrocardiogram. IMPRESSION: Mr. Urbina is a 71 year old woman with mild coronary artery disease noted on catheterization October 2020, possible bicuspid aortic valve with mildly dilated aortic root, hypertension, dyslipidemia,and diabetes [id number] who is here today to establish new cardiology follow-up. PLAN AND RECOMMENDATIONS: 1. Coronary artery disease involving buckland coronary artery of buckland heart without angina pectoris- ICD9: 414.01, ICD10: I25.10 (primary diagnosis) Results of his catheterization were reviewed with the patient. Continue current medical therapy andrisk factor modification. - BASIC METABOLIC PNL 2. Other hyperlipidemia - ICD9: 272.4, ICD10: E78.49 Patient has not had repeat fasting blood work since increasing his atorvastatin dose. I have ordered repeat fasting blood work for review at next office visit - ATORVASTATIN 40 MG TABLET - LIPID PANEL BASIC - ALT/SGPT - AST/SGOT BLD 3. Primary hypertension - ICD9: 401.9, ICD10: I10 Well-controlled on current regimen. - LISINOPRIL 40 MG TABLET - AMLODIPINE 2.5 MG TABLET 4. Screening for ischemic heart disease - ICD9: V81.0, ICD10: Z13.6 - ECG COMPLETE 5. Obesity, Class I, BMI 30-34.9 - ICD9: 278.00, ICD10: E66.9 Discussed dietary modification for overall health benefits and further cardiovascular risk reduction 6. Dilated aortic root (HCC) - ICD9: 447.71, ICD10: I77.810 Possible bicuspid aortic valve. Plan to repeat echocardiogram after next office visit. Edilma Nobles MD [facility] Miscellaneous Notes* Telephone Encounter - [place] RN - 10/17/2021 1:50 PM EDT Call to pt to discuss chief complaint and any prior levi maker to request medical records for upcoming appt with Dr. Nobles on 10/28. Unable to reach pt, home phone was disconnected and Citiloghart notactivated. documented [address] [facility] summary Author iVnh Ortiz [facility] December 05, 2022 11:16am Note Date/Time December 05, 2022 1 1:16am [facility] Medical Records Department [address] [place] [address] Instructions for Home/Discharge Instructions 12/05/22 1116 MR#: [id number] Acct: [id number] Name: YAHAIRAGHISLAINE JrAmie Rep #:[id number] : 1950 72 From: Vinh barrientos DO PCP: Dr. Milana Marie MD Status:ADM DANA Discharge Instructions Follow Up Care Test Results: Test results from this visit will be discussed in further detail at your follow- up appointment, if applicable. Discharge Plan Admission Admit Date/Time: 12/04/22 13:54 Primary Reason for Your Visit: Left total hip arthroplasty Attending Provider: Vinh Ortiz Primary Care Provider: Milana Marie Consulting Providers: Nicholas Dunham Instructions Additional Instructions / Restrictions: Follow preprinted instructions from your surgeons office Follow up with your levi maker for further evaluation of arrythmia Discharge Orders/Prescriptions Prescriptions: New sennosides-docusate sodium [Stool Softener-Stimulant Laxat] 8.6-50 mg Tablet 2 tab PO BID 7 Days Qty: 28 0RF meloxicam 7.5 mg Tablet 7.5 mg PO BID 30 Days Qty: 60 0RF famotidine 20 mg Tablet 20 mg PO DAILY 30 Days Qty: 30 0RF aspirin 81 mg Tablet,Chewable 81 mg PO BID 30 Days Qty: 60 0RF oxycodone 5 mg Tablet 5 - 10 mg PO Q4H PRN PRN (Reason: Pain Score 4-10) 7 Days Qty: 42 0RF Continued metformin 1,000 mg tablet 1,000 mg PO QHS Qty: 90 Patient Comments: TAKE 1 TABLET BY MOUTH AT BEDTIME lisinopril 20 mg tablet 40 mg PO DAILY Qty: 180 Patient Comments: TAKE 2 TABLETS BY MOUTH ONCE DAILY atorvastatin 20 mg tablet 40 mg PO QHS Qty: 90 Patient Comments: TAKE 1 TABLET BY MOUTH AT BEDTIME amlodipine 2.5 mg tablet 2.5 mg PO QHS Qty: 90 magnesium hydroxide 400 mg (170 mg magnesium) tablet,chewable 400 mg PO BID acetaminophen 650 mg tablet extended release 650 mg PO Q12H PRN (Reason: pain) Discontinued naproxen sodium [Aleve] 220 mg capsule 440 mg PO DAILY PRN (Reason: pain) Referrals / Follow Up: [facility], Cardiology [Other] - Within 2 Weeks Milana Marie MD [Primary Care Provider] - Vinh Ortiz DO [Med Staff - Active Staff] - Disposition Disposition (needs filled in before D/C Order can be placed): Home, Self Care 12/05/22 1116<Electronically signed by Vinh Ortiz DO>Vinh Ortiz DO CC: Dr. Milana Marie MD; Dr. Nicholas Dunham DO ~ Signed [facility] Work Phone: Discharge summary Author Vinh Ortiz [facility] December 05, 2022 11:18am Note Date/Time December 05, 2022 1 1:18am [facility] Medical Records Department [address] [place] [id number] Discharge Summary 12/05/221115 MR#: [id number] Acct: [id number] Name: GRANT URBINAZAC ALTMANEVIE Bynum Rep #:[id number] : 1950 72 From: Vinh barrientos DO PCP: Dr. Milana Marie MD Status:ADM DANA Location: [place] [address] Providers Date of Admission: 12/04/22 Primary Care Physician: Dr. Milana Marie MD Consultations 12/04/22 11:30 Consult: Hospitalist Routine Consulting Provider: Nicholas Dunham Reason for Consult: S/p L Total hip, medical management EMERGENT Consult: No MD Notified: Yes Date Notified: 12/04/22 Time Notified: 11:32 Method of Notification: Text Reason For Visit: LEFT TOTAL HIP ARTHROPLASTY Diagnosis Discharge Diagnosis (1) Presence of left hip implant: Status: Acute Code(s): Z96.642 - Presence of left artificial hip joint Plan: POD#1 s/p left robotic arm assisted total hip arthroplasty - Pain control - Medicine following for medical management - PT/OT-posterior hip precautions, weightbearing as tolerated left lower extremity - DVT PPX -Multimodal with aspirin, SCDs, SUZI hose and early mobilization - Case management - D/C planning Anticipate discharge home today if therapy goals are met and cleared from medical standpoint. Medications at Discharge Home Medications amlodipine 2.5 mg tablet 2.5 mg PO QHS #90 tabs 08/23/18 atorvastatin 20 mg tablet 40 mg PO QHS #90 tabs 08/23/18 lisinopril 20 mg tablet 40 mg PO DAILY #180 tabs 08/23/18 magnesium hydroxide 400 mg (170 mg magnesium) chewable tablet 400 mg PO BID 08/23/18 metformin 1,000 mg tablet 1,000 mg PO QHS #90 tabs 08/23/18 acetaminophen 650 mg tablet,extended release 650 mg PO Q12H PRN pain 11/20/22 aspirin 81 mg chewable tablet 81 mg PO BID 30 days #60 tabs 12/05/22 famotidine 20 mg tablet 20 mg PO DAILY 30 days #30 tabs 12/05/22 meloxicam 7.5 mg tablet 7.5 mg PO BID 30 days #60 tabs 12/05/22 oxycodone 5 mg tablet 5 - 10 mg (1 - 2 x 5 mg) PO Q4H PRN PRN Pain Score 4-10 7 days #42 tabs 12/05/22 sennosides 8.6 mg-docusate sodium 50 mg tablet (Stool Softener-Stimulant Laxative) 2 tab PO BID 7 days #28 tabs 12/05/22 Hospital Course Summary of Care Provided Minutes Spent on Discharge: 20 Hospital Course: Patient underwent uncomplicated L HETAL 12/04/22. In PACU, nonsustained run of V Tach was noted. Patient was assymptomatic. He was placed in Tele Obs. Internal medicine evaluated the patient. No intervention was needed. He did well overnight. He worked well with PT/OT. He is to follow up with his levi maker upon dc. He will continue outpatient PT. Physical Exam Narrative General - A&Ox3, NAD. VSS/AF Left lower extremity -incisional dressing C/D/I. SILT Sural, Saphenous, SPN, DPN, Tibial N. distributions. DP, PT 2+. BCR. DF, PF, EHL 5/5. No calf TTP. Weight / BMI Weight Weight: 229 lb 4.492 oz Body Mass Index (BMI) 30.2 ABG / Lab / Microbiology Data 12/05/22 04:45 12/05/22 04:45 Laboratory: Laboratory Results - last 24 hr 12/04/22 13:13: POC Glucose 189 H 12/05/22 04:45: WBC 12.2 H, RBC 3.82 L, Hgb 11.2 L, Hct 34.5 L, MCV 90.3, MCH 29.3, MCHC 32.5, RDW Std Deviation 43.0, RDW Coeff of Jason 13.2, Plt Count 237, MPV 10.2, Sodium 139, Potassium 4.1, Chloride 106, Carbon Dioxide 27.0, Anion Gap 6, BUN 19 H, Creatinine 0.86, Estim Creat Clear Calc 86.46, Est GFR (MDRD) Af Amer 112, Est GFR (MDRD) Non-Af 93, BUN/Creatinine Ratio 22.1 H, Glucose 181 H, Calcium 8.6 Microbiology: Microbiology 11/20/22 12:10 Swab (Method) Nasal Screen MRSA/MSSA - Final Radiography Diagnostic Testing: Radiology Impression Hip X-Ray 12/04/22 11:55 IMPRESSION: Left total hip arthroplasty, grossly anatomic in alignment. Electronically Signed: Lindsay Ceballos MD at 13:23 EDT Reading Location ID and State: [address] [place] [address] Tel , Service support , Meaningful Use Info Meaningful Use Diagnoses (Choose all that apply): None applicable Discharge Plan Admission Admit Date/Time: 12/04/22 13:54 Primary Reason for Your Visit: Left total hip arthroplasty Attending Provider: Vinh Ortiz Primary Care Provider: Milana Mraie Consulting Providers: Nicholas Dunham Instructions Additional Instructions / Restrictions: Follow preprinted instructions from your surgeons office Follow up with your levi maker for further evaluation of arrythmia Discharge Orders/Prescriptions Prescriptions: New sennosides-docusate sodium [Stool Softener-Stimulant Laxat] 8.6-50 mg Tablet 2 tab PO BID 7 Days Qty: 28 0RF meloxicam 7.5 mg Tablet 7.5 mg PO BID 30 Days Qty: 60 0RF famotidine 20 mg Tablet 20 mg PO DAILY 30 Days Qty: 30 0RF aspirin 81 mg Tablet,Chewable 81 mg PO BID 30 Days Qty: 60 0RF oxycodone 5 mg Tablet 5 - 10 mg PO Q4H PRN PRN (Reason: Pain Score 4-10) 7 Days Qty: 42 0RF Continued metformin 1,000 mg tablet 1,000 mg PO QHS Qty: 90 Patient Comments: TAKE 1 TABLET BY MOUTH AT BEDTIME lisinopril 20 mg tablet 40 mg PO DAILY Qty: 180 Patient Comments: TAKE 2 TABLETS BY MOUTH ONCE DAILY atorvastatin 20 mg tablet 40 mg PO QHS Qty: 90 Patient Comments: TAKE 1 TABLET BY MOUTH AT BEDTIME amlodipine 2.5 mg tablet 2.5 mg PO QHS Qty: 90 magnesium hydroxide 400 mg (170 mg magnesium) tablet,chewable 400 mg PO BID acetaminophen 650 mg tablet extended release 650 mg PO Q12H PRN (Reason: pain) Discontinued naproxen sodium [Aleve] 220 mg capsule 440 mg PO DAILY PRN (Reason: pain) Referrals / Follow Up: [facility], Cardiology [Other] - Within 2 Weeks Milana Marie MD [Primary Care Provider] - Vinh Ortiz DO [Med Staff - Active Staff] - Disposition Disposition (needs filled in before D/C Order can be placed): Home, Self Care 12/05/22 1118 <Electronically signed by Vinh Ortiz DO> Cosigner Signature (if applicable): CC: Dr. Milana Marie MD; Dr. Vinh Ortiz DO~ Signed [facility] Work Phone: Evaluation noteNo assessment information available [facility] Work Phone: Evaluation note* Diagnosis Coronary artery disease involving buckland coronary artery of buckland heart without angina pectoris- Primary Other hyperlipidemia Primary hypertension Unspecified essential hypertension Screening for ischemic heart disease Obesity, Class I, BMI 30-34.9 Obesity, unspecified Dilated aortic root (HCC) Thoracic aortic ectasia [facility] Diagnosis Onset Date Resolution Status Diabetes mellitus acute Presence of left hip implant acute [facility] Work Phone: Evaluation note* Diagnosis Coronary artery disease involving buckland coronary artery of buckland heart without angina pectoris- Primary Dilated aortic root (HCC) Thoracic aortic ectasia Primary hypertension Unspecified essential hypertension Other hyperlipidemia [facility] [place] [facility]* Diagnosis Coronary artery disease involving buckland coronary artery of buckland heart without angina pectoris- Primary Dilated aortic root (HCC) Thoracic aortic ectasia Primary hypertension Unspecified essential hypertension Other hyperlipidemia [facility] [place] [facility]* Diagnosis Onset Date Resolution Status Admit Date Bulging lumbar disc acute Octob er 2024 12:57pm Obesity (BMI 30-39.9) acute Oct ashvin 2024 12:57pm [facility] Work Phone: Reason for referral (narrative)* Outpatient Procedure (Routine) - Denied Specialty Diagnoses / Procedures Referred By Contac t Referred To Contact [facility] [place] Diagnoses Screening for ischemic heart disease Procedures ECG COMPLETE ECG ROUTINE ECG W/LEAST 12 LDS W/I&R Edilma Nobles MD [address] [place] [address] [facility] [place] [address] [place] [address] Referral ID Status Reason Start Date Expiration Date V isits Requested Visits Authorized [id number] Denied Auto-Generat ed Referral Clearance Not Met - Admin/Chairm an/Director Advise to Postpone/Res chedule or Not Proceed 10/17/2021 10/17/2022 1 0 [facility] for referral (narrative)* Outpatient Procedure (Routine) - Authorized Specialty Diagnoses / Procedures Referred By Contac t Referred To Contact [facility] [place] Diagnoses Dilated aortic root (HCC) Procedures ECHO ECHO TTHRC R-T 2D W/WOM-MODE COMPL SPEC&COLR D Edilma Nobles MD [address] [place] [address] [facility] [place] [address] [place] [address] Referral ID Status Reason Start Date Expiration Date Visits Requested Visits Authorized [id number] Authorized Auto-Generat ed Referral 02/17/2024 09/13/2024 1 1 [facility] for referral (narrative)No reason for referral information availableWAv[facility] Work Phone: Summary Purpose Family History No Family History Records FoundNo Family History Records FoundNo Family History Records FoundNo Family History Records FoundNo Family History Records FoundNo Family History Records Found Advance Directives No Advanced Directives Records Found Advance Directive Response Recorded Date/ Time Name of Medical Power of Dray Driver Yasmnie Urbina December 04, 2022 3:30pm Living Will No December 04 3:30pm Power of Dray Driver Yes December 04, 2022 3:30pm Advance Directive Response Recorded Date/ Time Name of Medical Power of Dray Driver Yasmine Urbina December 04, 2022 2:30pm Living Will No December 04 2:30pm Power of Dray Driver Yes December 04, 2022 2:30pm Chief Complaint and Reason for Visit Chief Complaint TOBACCO ABUSE Chief Complaint TOBACCO ABUSE ABNORMAL FINDING OF LUNG FIELD ABNORMAL PET SCAN Chief Complaint LEFT HIP GABE PROTOC OL LEFT TOTAL HIP ARTHROPLASTY LEFT TOTAL HIP ARTHROPLASTY Reason for Visit Diabetes mellitus Presence of left hip implant Chief Complaint LEFT TOTAL HIP ARTHR OPLASTY LEFT TOTAL HIP ARTHROPLASTY LEFT TOTAL HIP ARTHROPLASTY EORDER Reason for Visit Diabetes mellitus Presence of left hip implant Chief Complaint Admit Date THORACIC SPINE November 18, 2024 12 :57pm Room 2 November 18, 2024 1: 19pm Reason for Visit Admit Date Bulging lumbar disc November 18, 2024 12 :57pm Obesity (BMI 30-39.9) November 18, 2024 12:57pm Additional Source Comments (unrecognized sect ion and content) No Status Records FoundNo Status Records FoundNo Status Records FoundNo Status Records FoundNo Status Records FoundNo Status Records Found INFORMATION SOURCE (unrecogn ized section and content) DATE CREATED AUTHOR 08/06/2017 [facility] DATE CREATED AUTHOR AUTHOR'S ORGANIZ ATION 10/14/2017 [facility] DATE CREATED AUTHOR AUTHOR'S ORGANIZ ATION 10/23/2020 [facility] ([place]) DATE CREATED AUTHOR AUTHOR'S ORGANIZ ATION 02/15/2023 [facility] DATE CREATED AUTHOR AUTHOR'S ORGANIZ ATION 05/10/2024 [facility] DATE CREATED AUTHOR AUTHOR'S ORGANIZ ATION 11/25/2024 [facility] Goals (unrecognized section and content) Goals may be documented in a n alternate sectionGoals may be documented in an alternate sectionGoals may be documented in an alternate sectionGoals may be documented in an alternate sectionGoals may be documented in an alternate sectionGoals may be documented in an alternate sectionGoals may be documented in an alternate section Source Comments (unrecognize d section and content) In the event this informatio n is protected by the Federal Confidentiality of Alcohol and Drug Abuse Patient Records regulations: The Federal rules restrict any use of the information to criminally investigate or prosecute any alcohol or drug abuse patient.[facility] the event this information is protected by the Federal Confidentiality of Alcohol and Drug Abuse Patient Records regulations: The Federal rules restrict any use of the information to criminally investigate or prosecute any alcohol or drug abuse patient.[facility] the event this information is protected by the Federal Confidentiality of Alcohol and Drug Abuse Patient Records regulations: The Federal rules restrict any use of the information to criminally investigate or prosecute any alcohol or drug abuse patient.[facility] the event this information is protected by the Federal Confidentiality of Alcohol and Drug Abuse Patient Records regulations: The Federal rules restrict any use of the information to criminally investigate or prosecute any alcohol or drug abuse patient.[facility] Reason for Visit (unrecogniz ed section and content) Reason Comments Appointment Reason Comments Consult Reason Comments Follow Up Reason Comments Follow Up 8 follow up Care Teams (unrecognized sec tion and content) Community Development Officer Relationship Specialty Start Date End Date Corbin Marroquin [address] [place] [id number] PCP - General 10/03/04 Community Development Officer Relationship Specialty Start Date End Date Corbin Marroquin [address] [place] [id number] PCP - General 10/03/04 Team Status: Active Member Role Status Dates Dr. Milana Marie MD Family Provider Active Dr. Milana Marie MD Primary Care Provider Active Team Status: Inactive Member Role Status Dates Dr. Milana Marie MD Primary Care Provider, Attendin g Provider Active Team Status: Active Member Role Status Dates Dr. Milana Marie MD Primary Care Provider Active Dr. Vinh Ortiz DO Admit Provider , Referring Provider, Other Provider Active Dr. Nicholas Dunham DO Attending Provider, Other Pro vider Active Team Status: Inactive Member Role Status Dates Dr. Milana Marie MD Primary Care Provider Active Dr. Vinh Ortiz DO Admit Provider , Attending Provider, Referring Provider Active Dr. Nicholas Dunham DO Other Provider Active Team Status: Inactive Member Role Status Dates Dr. Milana Marie MD Primary Care Provider Active Dr. Vinh Ortiz , Attending Provider, Referrin g Provider Active Team Status: Active Member Role Status Dates Dr. Milana Marie MD Primary Care Provider Active Dr. Vinh Ortiz , DO Admit Provider, Other Provid er Active Dr. Nicholas Dunham , DO Attending Provider, Other Pro vider Active Team Status: Inactive Member Role Status Dates Dr. Milana Marie MD Primary Care Prov ider, Attending Provider, Referring Provider Active Community Development Officer Relationship Specialty Start Date End Date Claudiaviola Milana Hayley [address] [address] [place] [address] PCP - General Family Medicine 01/19/23 Community Development Officer Relationship Specialty Start Date End Date SelinMilana stahl [address] [facility] [address] [place], [place] [id number] PCP - General Family Medicine 01/19/23 Team Status: Active Member Role/Relationship Status Dates Dr. Milana Marie MD Primary care physician Active Team Status: Inactive Member Role/Relationship Status Dates Dr. Milana Marie MD Primary care physician Active Start: November 09, 2024 End: November 09, 2024 Dr. Mic Ruiz MD Attending physician Active Start: November 09, 2024 End: November 09, 2024 Dr. Mic Ruiz MD Referring Provider Active Start: November 09, 2024 End: November 09, 2024 Team Status: Active Member Role/Relationship Status Dates Dr. Milana Marie MD Primary care physician Active Start: November 18, 2024 Dr. Milana Marie MD Referring Provider Active Start: November 18, 2024 Dr. Arpit Boston MD Attending physician Active Start: November 18, 2024 Team Status: Inactive Member Role/Relationship Status Dates Dr. Milana Marie MD Primary care physician Active Start: November 18, 2024 End: November 18, 2024 Dr. Zaid Pena MD Attending physician Active Start: November 18, 2024 End: November 18, 2024 Team Status: Inactive Member Role/Relationship Status Dates Dr. Milana Marie MD Primary care physician Active Start: November 18, 2024 End: November 18, 2024 Dr. Milana Marie MD Referring Provider Active Start: November 18, 2024 End: November 18, 2024 Dr. Arpit Boston MD Attending physician Active Start: November 18, 2024 End: November 18, 2024 FOR RECORDS PERTAINING TO PATIENTS WHO ARE OR HAVE BEEN ENROLLED IN A CHEMICAL DEPENDENCY/SUBSTANCEABUSE PROGRAM, SOME INFORMATION MAY BE OMITTED. This clinical summary was aggregated from multiple sources. Caution should be exercised in using it in the provision of clinical care. This summary normalizes information from multiple sources, and as a consequence, information in this document may materially change the coding, format and clinical context of patient data. In addition, data may be omitted in some cases. CLINICAL DECISIONS SHOULD BE BASED ON THE PRIMARY CLINICAL RECORDS. [facility]. provides no warranty or guarantee of the accuracy or completeness of information in this document.
== END | disposition home or self-care (01) ==
LOC: MTRAD 09:06
PROVIDERS: PCP Family Medicine; Referring Provider Family Medicine; Visit Provider Family Medicine
DX: R05.9 Cough, unspecified (principal); J20.9 Acute bronchitis, unspecified
CPT/HCPCS: 71046